=== PATIENT | male | born 1995 | race Caucasian/White ===

== ENCOUNTER 2018-12-10 16:11 | Emergency (ER) | payer MEDICAID, SELFPAY ==
[2018-12-10 16:15] VITALS: BP 127/69; PULSE 76; RESP 16; TEMP 36.7; O2SAT 99
--- NOTE | 2018-12-10 16:16 | W.ED.GENAD ---
Discharge Plan Disposition Patient Disposition: OTHER Discharge Details Chief Complaint: Nk/Back Pain Clinical Impression: Coccyx pain Primary Care Provider: [facility] ED Provider: Mariama Stevenson Medical Decision Making Patient is a 23 year old male presenting today with c/c of tailbone pain after fall yesterday. Reports he was hiking a waterfall when he slipped and fell landing directly on his coccyx. States that since then he has had pain, particularly when sitting. Appears comfortable when standing but is clearly in pain when asked to sit during exam. He denies sensory changes, no weakness in BLE, no change in bowel or bladder habits. Denies other injury at the time of the incident. Patient point tender over the coccyx. He has not taken any medication for pain, will give Tylenol and Ibuprofen and XR coccyx/sacrum. Once patient hasvoided, plan to obtain postvoid residual although no signs on exam or history to suggest cauda equina. Patient eloped prior to imaging or post void residual being assessed, he reported that he had a limited time to be here and would need a ride home. There was a delay in obtaining imaging secondary to surge in the department. Patient eloped prior to me reevaluating him, he was appropriate and is cognitively able to make this decision. HPI General Mode of arrival: ambulatory. Date/Time Provider Initiated Documentation: 12/10/18 16:16. Limitations to Documentation: no limitations. Information obtained by: patient and RN notes reviewed. History of Present Illness 23 year old M presents to the emergency department with the chief complaint of tailbone pain, described as moderate, with intensity rated at 7. Quality is described as aching, and is localized to the back. Patient reports no radiation. Patient started experiencing this day(s) (1) and it has been constant. Immobilization improves symptom(s), (in upright position) Rest worsens symptoms (sitting) . Patient notes no other symptoms.; denies chest pain, cough, fever/chills, headaches, nausea/vomiting, rash, shortness of breath, syncope and weakness. Patient did receive the following treatments prior to arrival, none Related Data Allergies Allergy/AdvReac Type Severity Reaction Status Date / Time cephalexin [Cephalexin] Allergy Intermediate RASH Unverified 12/10/18 16:20 honey Allergy Mild Hives Unverified 12/10/18 16:20 Review of Systems Constitutional Reports as per HPI, Denies chills, Denies fever(s), Denies headache(s) and Denies weakness ENT Denies headache(s) and Denies neck pain Cardiovascular Reports as per HPI Respiratory Reports as per HPI and Denies cough Musculoskeletal Reports as per HPI, Denies abnormal gait, Reports back pain, Denies muscle weakness, Denies neck pain, Denies numbness and Denies tingling Integumentary/Breasts Reports as per HPI, Denies rash and Denies wounds Neurologic Reports as per HPI, Denies abnormal gait, Denies headache(s), Denies numbness, Denies tingling, Denies paresthesias and Denies weakness [facility] Surgical History Arthroplasty of knee (04/16/12) Excision of dorsal wrist ganglion cyst, right (05/10/16) Social History Smoking/Tobacco Use Status: Current every day Tobacco Type: cigarettes Alcohol Intake: current Alcohol Intake frequency: a few times a month Drug use: Never Substance use type: does not use Do you feel safe at home: Yes Do you feel safe in your relationship?: Yes Exam Const General: cooperative, healthy appearing, comfortable, no acute distress, well developed and well groomed Nutritional Appearance: average body habitus and well nourished Orientation: alert and awake Resp Effort & Inspection: normal respiratory effort, able to speak in complete sentences and no respiratory distress Auscultation: clear to auscultation bilaterally Cardio Rate: regular rate Rhythm: regular rhythm Heart Sounds: S1 normal and S2 normal GI Inspection: normal to inspection Palpation: soft, no hepatosplenomegaly, no guarding and nontender Back/Spine/Pelvis Back: no CVA tenderness Cervical Spine: normal cervical lordosis and cervical ROM normal Thoracic/Lumbar Spine: thoracic and lumbar spine normal to inspection Pelvis: no pain with anterior-posterior compression and no pain with lateral compression Sacroiliac joints: bilaterally nontender Sacrum: no ecchymosis, no erythema, no swelling and tenderness midline Coccyx: tenderness on direct palpation Skin General skin exam: no rashes or lesions noted Lesions: no lesions Rashes: no rashes Trauma: no lacerations or abrasions Neuro General: alert and awake Cognition: normal cognition Speech: speech normal Gait: normal gait Motor: muscle tone normal throughout Sensory Exam: no sensory deficits noted (no saddle paresthesias) DTR's: Rt Patellar: 2+, Lt Patellar: 2+, Rt Ankle: 2+ and Lt Ankle: 2+ Plantar Reflexes: Downgoing: bilateral Extrem General: normal to inspection, full ROM, normal capillary refill, no joint enlargement, no clubbing, cyanosis or edema, no pedal edema, no calf tenderness and normal gait Psych Appearance: grossly normal and well kempt Mental Status: mental status grossly normal Speech and Movement: speech and movement normal
--- NOTE | 2018-12-10 16:31 | ED.GENADUL_ITS ---
Discharge Plan Disposition Patient Disposition: OTHER Discharge Details Chief Complaint: Nk/Back Pain Clinical Impression: Coccyx pain Primary Care Provider: [facility] ED Provider: Mariama Stevenson Medical Decision Making Patient is a 23 year old male presenting today with c/c of tailbone pain after fall yesterday. Reports he was hiking a waterfall when he slipped and fell landing directly on his coccyx. States that since then he has had pain, particularly when sitting. Appears comfortable when standing but is clearly in pain when asked to sit during exam. He denies sensory changes, no weakness in BLE, no change in bowel or bladder habits. Denies other injury at the time of the incident. Patient point tender over the coccyx. He has not taken any medication for pain, will give Tylenol and Ibuprofen and XR coccyx/sacrum. Once patient hasvoided, plan to obtain postvoid residual although no signs on exam or history to suggest cauda equina. Patient eloped prior to imaging or post void residual being assessed, he reported that he had a limited time to be here and would need a ride home. There was a delay in obtaining imaging secondary to surge in the department. Patient eloped prior to me reevaluating him, he was appropriate and is cognitively able to make this decision. HPI General Mode of arrival: ambulatory . Date/Time Provider Initiated Documentation: 12/10/18 16:16 . Limitations to Documentation: no limitations . Information obtained by: patient and RN notes reviewed . History of Present Illness 23 year old M presents to the emergency department with the chief complaint of tailbone pain, described as moderate, with intensity rated at 7. Quality is described as aching, and is localized to the back. Patient reports no radiation. Patient started experiencing this day(s) (1) and it has been constant. Immobilization improves symptom(s), (in upright position) Rest worsens symptoms (sitting) . Patient notes no other symptoms.; denies chest pain, cough, fever/chills, headaches, nausea/vomiting, rash, shortness of breath, syncope and weakness. Patient did receive the following treatments prior to arrival, none Related Data Allergies Allergy/AdvReac Type Severity Reaction Status Date / Time cephalexin [Cephalexin] Allergy Intermediate RASH Unverified 12/10/18 16:20 honey Allergy Mild Hives Unverified 12/10/18 16:20 Review of Systems Constitutional Reports as per HPI, Denies chills, Denies fever(s), Denies headache(s) and Denies weakness ENT Denies headache(s) and Denies neck pain Cardiovascular Reports as per HPI Respiratory Reports as per HPI and Denies cough Musculoskeletal Reports as per HPI, Denies abnormal gait, Reports back pain, Denies muscle weakness, Denies neck pain, Denies numbness and Denies tingling Integumentary/Breasts Reports as per HPI, Denies rash and Denies wounds Neurologic Reports as per HPI, Denies abnormal gait, Denies headache(s), Denies numbness, Denies tingling, Denies paresthesias and Denies weakness [facility] Surgical History Arthroplasty of knee (04/16/12) Excision of dorsal wrist ganglion cyst, right (05/10/16) Social History Smoking/Tobacco Use Status: Current every day Tobacco Type: cigarettes Alcohol Intake: current Alcohol Intake frequency: a few times a month Drug use: Never Substance use type: does not use Do you feel safe at home: Yes Do you feel safe in your relationship?: Yes Exam Const General: cooperative, healthy appearing, comfortable, no acute distress, well developed and well groomed Nutritional Appearance: average body habitus and well nourished Orientation: alert and awake Resp Effort & Inspection: normal respiratory effort, able to speak in complete sentences and no respiratory distress Auscultation: clear to auscultation bilaterally Cardio Rate: regular rate Rhythm: regular rhythm Heart Sounds: S1 normal and S2 normal GI Inspection: normal to inspection Palpation: soft, no hepatosplenomegaly, no guarding and nontender Back/Spine/Pelvis Back: no CVA tenderness Cervical Spine: normal cervical lordosis and cervical ROM normal Thoracic/Lumbar Spine: thoracic and lumbar spine normal to inspection Pelvis: no pain with anterior-posterior compression and no pain with lateral compression Sacroiliac joints: bilaterally nontender Sacrum: no ecchymosis, no erythema, no swelling and tenderness midline Coccyx: tenderness on direct palpation Skin General skin exam: no rashes or lesions noted Lesions: no lesions Rashes: no rashes Trauma: no lacerations or abrasions Neuro General: alert and awake Cognition: normal cognition Speech: speech normal Gait: normal gait Motor: muscle tone normal throughout Sensory Exam: no sensory deficits noted (no saddle paresthesias) DTR's: Rt Patellar: 2+, Lt Patellar: 2+, Rt Ankle: 2+ and Lt Ankle: 2+ Plantar Reflexes: Downgoing: bilateral Extrem General: normal to inspection, full ROM, normal capillary refill, no joint enlargement, no clubbing, cyanosis or edema, no pedal edema, no calf tenderness and normal gait Psych Appearance: grossly normal and well kempt Mental Status: mental status grossly normal Speech and Movement: speech and movement normal
[2018-12-10] MEDS: Acetaminophen 500 MG TAB 1000 MG PO (16:50)
[2018-12-10] MEDS: Ibuprofen 600 MG TAB PO (17:14)
[2018-12-10 17:16] VITALS: BP 127/69; PULSE 76; RESP 16; TEMP 36.7; O2SAT 99
--- NOTE | 2018-12-10 17:16 | NUR.NOTE ---
Nursing Note: Patient left prior to getting his xrays taken because his only chance to get a ride home was in 2 min prior to leaving.
--- NOTE | 2018-12-11 09:15 | PDOC.ERCMPRO ---
Care Management Progress Note 12/11-Vin was seen in the emergency department for back/neck pain, s/p fall while hiking. Patient left AMA due to transportation. This CM reached out to Vin, but the phone number listed in the chart states, restrictions, unable to put call through.
== END 2018-12-10 17:12 | disposition other institution (70) ==
PROVIDERS: Emergency Provider Physician Assistant; PCP Family Medicine
DX: M54.5 Low back pain (principal); W01.0XXA Fall on same level from slipping, tripping and stumbling without subsequent striking against object, initial encounter
CPT/HCPCS: 99282

== ENCOUNTER 2019-01-27 02:37 | Emergency (ER) | payer MEDICAID, SELFPAY ==
[2019-01-27 02:40] VITALS: BP 123/81; PULSE 55; RESP 16; TEMP 36.7; O2SAT 100
--- NOTE | 2019-01-27 02:45 | W.ED.GENAD ---
Discharge Plan Disposition Patient Disposition: HOME Condition: Stable Discharge Details Chief Complaint: Headache Clinical Impression: Headache Primary Care Provider: [facility] ED Provider: Josiah Crockett Home Meds and New Rx's Prescriptions: New ondansetron 4 mg tablet,disintegrating 4 mg PO QID PRN (Reason: nausea and vomiting) Qty: 30 RF: 0 Discharge Instructions Instructions: General Headache (ED) Additional Instructions: you can take 1000mg tylenol and 600mg ibuprofen every 6 hours for pain as needed follow up with your primary care provider within 1-2 weeks especially if symptoms continue if you have persistent vomit, high fevers or feel more ill return to the emergency department Medical Decision Making 23 yo male who denies chronic med problems but has hx of headaches/migraines in the past comes in with slowly worsening headache. Denies fevers, no recent travel and denies trauma. He states yesterday he was out in the sun all day and wasn't drinking much water and also had some n/v/d yesterday. He arrives walking with stable gait and normal vital signs. CN II-xII intact and no focal motor or sensation deficits. 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 Given pain has slowly been worsening and not worse of his life doubt sah. He has moist membranes and no tachycardia so doubt clinically significant dehydration. Will tx with toradol and zofran and reassess. pt feeling better and requesting d/c, still reassuring neuro exam without meningismus. Will d/c and advised f/u with pcp if symptoms continue and return precautins given Differential Diagnosis dehydration, tension headache, migraine HPI General Mode of arrival: ambulatory. Date/Time Provider Initiated Documentation: 01/27/19 02:37. Limitations to Documentation: no limitations. Information obtained by: patient. History of Present Illness 23 year old M presents to the emergency department with the chief complaint of headache, described as moderate, Quality is described as aching, and is localized to the head. Patient reports no radiation. Patient started experiencing this hour(s) (5) No relieving factors improve symptom(s), No exacerbating factors reported . Patient did receive the following treatments prior to arrival, Aspirin Related Data Home Medications Medication Instructions Recorded Confirmed ondansetron 4 mg PO QID PRN #30 tab 01/27/19 Previous Rx's Medication Instructions Recorded ondansetron 4 mg PO QID PRN #30 tab 01/27/19 Allergies Allergy/AdvReac Type Severity Reaction Status Date / Time cephalexin [Cephalexin] Allergy Intermediate RASH Unverified 01/27/19 02:43 honey Allergy Mild Hives Unverified 01/27/19 02:43 General Stated Complaint: Headache GABRIEL: 3 Review of Systems Review of Systems All systems reviewed & are unremarkable except as noted in HPI and below Constitutional Denies chills, Denies fever(s) and Denies weakness Cardiovascular Denies chest pain and Denies dyspnea Respiratory Denies cough and Denies dyspnea Gastrointestinal Denies abdominal pain Neurologic Denies weakness PFSH Social History Smoking/Tobacco Use Status: Current every day Tobacco Type: cigarettes Alcohol Intake: current Alcohol Intake frequency: a few times a month Drug use: Never Substance use type: does not use Do you feel safe at home: Yes Do you feel safe in your relationship?: Yes Exam Const General: no acute distress Orientation: alert HENMT Head: normal to inspection Ears: external ears normal General nose exam: external nose normal Mouth: moist mucous membranes Eyes General: appearance normal, both eyes and all related structures Neck Neck: normal visual inspection Resp Effort & Inspection: normal respiratory effort and able to speak in complete sentences Cardio Rate: regular rate Skin General skin exam: no rashes or lesions noted Neuro General: alert and oriented x3 Extrem General: normal to inspection Psych Mental Status: mental status grossly normal Course Vital Signs Temperature 36.7 C 01/27/19 02:40 Pulse 55 L 01/27/19 02:40 Respiratory Rate 16 01/27/19 02:40 Blood Pressure 123/81 01/27/19 02:40 Pulse Oximetry 100 01/27/19 02:40 Temperature 36.7 C 01/27/19 02:40 Temperature Source Skin 01/27/19 02:40 Pulse 55 L 01/27/19 02:40 Respiratory Rate 16 01/27/19 02:40 Respiratory Effort Non-Labored 01/27/19 02:43 Blood Pressure 123/81 01/27/19 02:40 Blood Pressure Position Sitting 01/27/19 02:40 Pulse Oximetry 100 01/27/19 02:40 Oxygen Delivery Method Room Air 01/27/19 02:40 Oxygen Flow Rate 0 01/27/19 02:40 Pain Level 8 01/27/19 02:40
[2019-01-27] MEDS: Ketorolac 30 MG/ML VIAL IM (02:46)
[2019-01-27] MEDS: Ondansetron O.D.T. 4 MG TABEF PO (02:46)
== END 2019-01-27 03:25 | disposition home or self-care (01) ==
PROVIDERS: Emergency Provider Emergency Medicine; PCP Family Medicine
DX: R51 Headache (principal); R11.2 Nausea with vomiting, unspecified
CPT/HCPCS: 96372; 99284; J1885

== ENCOUNTER 2019-12-15 13:20 | Emergency (ER) | payer MEDICAID, SELFPAY ==
[2019-12-15 13:23] VITALS: BP 116/74; PULSE 111; RESP 20; TEMP 36.9; O2SAT 100
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
--- NOTE | 2019-12-15 14:47 | NUR.NOTE ---
patient informed RN about wanting to go home. MD Hciks made aware. covid-19 sent Nursing Note:
[2019-12-15 15:34] VITALS: BP 106/66; PULSE 66; RESP 18; TEMP 36.3; O2SAT 96
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
[2019-12-16 13:04] LABS: COVID-19 RT-PCR UVMMC Result Negative (Negative)
== END 2019-12-15 15:42 | disposition home or self-care (01) ==
PROVIDERS: Emergency Provider Student in an Organized Health Care Education/Training Program; PCP Family Medicine
DX: F41.8 Other specified anxiety disorders (principal); R45.851 Suicidal ideations
CPT/HCPCS: 99283; U0003

== ENCOUNTER 2020-05-27 11:01 | Emergency (ER) | payer MEDICAID, SELFPAY ==
[2020-05-27 11:11] VITALS: BP 132/78; PULSE 103; RESP 16; TEMP 36.9; O2SAT 99
--- NOTE | 2020-05-27 11:17 | ED.GENADUL_ITS ---
Discharge Plan Disposition Patient Disposition: HOME Condition: Stable Discharge Details Clinical Impression: Spermatocele, Lymphangitis of groin Primary Care Provider: [facility] ED Provider: Renée Altamirano Home Meds and New Rx's Prescriptions: No Action No Known Home Meds RF: 0 Discharge Instructions Instructions: Lymphadenopathy (ED), Spermatocele (ED) Additional Instructions: Follow up with primary care provider in 3-5 days. Return to ED sooner if any worsening or concerns. Increase oral fluids. Please take Tylenol or Ibuprofen with food every 4-6 hours as needed for pain and swelling. Follow-up with urology regarding spermatocele and lymph node enlargement. At this time your urine culture is pending with any abnormal result we will call you usually takes about 2 to 3 days to return. Referrals: Wilber Corea MD [ [facility] STAFF PHYSICIAN] - [facility] [Primary Care Provider] - Medical Decision Making 24-year-old male presents to the ED with chief complaint of bumps to his right groin. He reports that these have been there for at least 1 to 2 years. Over the last 2 to 3 days he has noticed them increasing in size and increased sharp pains when they are increased in size. He denies any problems urinating or burning with urination. Denies any abdominal pain no nausea vomiting diarrhea no fever. He states he has never been seen for this before. He has a past medical history of asthma ADHD and PTSD. Urinalysis is negative no leukocytes no nitrites no protein, fluttering chlamydia also ordered and is pending at this time. CBC and CMP are both within normal limits. EXAM: US SCROTUM CLINICAL HISTORY: Right groin/testicle pain/enlarged lymph?. TECHNIQUE: Scrotal ultrasound performed using grayscale, color-flow and spectral Doppler analysis. COMPARISON: No exams were available for comparison FINDINGS: Right testicle: 4.0 x 2.2 x 3.0 cm Left testicle: 4.1 x 1.9 x 2.7 cm Echogenicity: Normal. Contour: Smooth. Mass: None seen. Microlithiasis: None. Hydrocele: None. Variocele: Millimeter minimal left varicocele with vessel measurement 3.5 millimeters with Valsalva. Hernia: No peristalsing bowel loop identified. Epididymi: 3 millimeter spermatocele head of the right epididymis. Left normal.. DOPPLER: Color: Symmetric and uniform, no hyperemia. Duplex: Bilateral testicular arterial waveforms visualized. Right groin was also scanned. Multiple lymph nodes are noted. The largest measures 2.6 x 0.7 x 1.3 cm. There is a 1.4 centimeter lymph node which appears hyperemic , consistent with a reactive lymph node. The fatty hilum is maintained. No fluid collection or suspicious masses are seen. IMPRESSION: Normal appearing bilateral testicles. Minimal left varicocele. Reactive appearing right groin lymph nodes. Discussed ultrasound results with patient who verbalized understanding. Plan is to have follow-up with urology placed on care management list for urology follow-up. Patient verbalized understanding. HPI General Mode of arrival: ambulatory . Date/Time Provider Initiated Documentation: 05/27/20 11:07 . Limitations to Documentation: no limitations . Information obtained by: patient . HPI Narrative: 24-year-old male presents to the ED with chief complaint of bumps to his right groin. He reports that these have been there for at least 1 to 2 years. Over the last 2 to 3 days he has noticed them increasing in size and increased sharp pains when they are increased in size. He denies any problems urinating or burning with urination. Denies any abdominal pain no nausea vomiting diarrhea no fever. He states he has never been seen for this before. He has a past medical history of asthma ADHD and PTSD. Related Data Home Medications Medication Instructions Recorded Confirmed Unknown [No Known Home Meds] 12/15/19 05/27/20 Allergies Allergy/AdvReac Type Severity Reaction Status Date / Time cephalexin [Cephalexin] Allergy Intermediate RASH Unverified 05/27/20 11:15 honey Allergy Mild Hives Unverified 05/27/20 11:15 General Stated Complaint: Abd Prob GABRIEL: 3 Review of Systems Narrative: Constitutional: Negative for weight loss, alert and oriented, well groomed, normal body habitus, appears comfortable. HEENT: Denies trauma, headaches, blurry vision, nasal discharge, sore throat, trouble swallowing. Chest: Denies chest pain, palpitations, irregular rhythm, hypertension. Respiratory: Denies Shortness of breath, cough, hemoptysis. GI: Denies abdominal pain, nausea, vomiting, diarrhea, constipation. : Denies dysuria, hematuria, flank pain, rectal bleeding. Neuro: Denies dizziness, blurry vision, weakness, syncope, headache or facial numbness. Hematologic: Denies easy bruising, intolerance to heat or cold, hair loss. [facility] Surgical History Arthroplasty of knee (04/16/12) RIGHT Excision of dorsal wrist ganglion cyst, right (05/10/16) Social History Smoking/Tobacco Use Status: Current every day Tobacco Type: cigarettes Alcohol Intake: current Alcohol Intake frequency: a few times a week Alcohol type: beer Drug use: Daily Substance use type: marijuana Do you feel safe at home: Yes Do you feel safe in your relationship?: Yes Exam Narrative Exam Narrative: Constitutional: Alert and oriented x3. Appears stated age. Normal body habitus. Head: Normocephalic, no trauma. Eyes: Pupils PERRLA, Red reflex noted, EOM's intact. Eyelids symmetrical without lesions, discharge, or swelling. ENT: Bilateral TM's WNL, External ear normal to inspection, no mastoid TTP, swelling, or erythema, Nasal turbinates WNL, no nasal discharge. Normal dentition, Posterior pharynx WNL, no exudate. Chest: RRR, Normal S1, S2, distal pulses intact. Resp: Lungs clear to auscultation bilaterally, no wheezes, rales, or rhonchi. : Palpable small mass noted to his right groin, measuring approx 2cm x 2cm. Tender with palpation, non movable. No scrotal swelling, redness. No penile shaft lesion, or meatus discharge noted. Mary RN at for [facility]. Musculoskeletal: Normal gait, 5/5 strength to all four extremities. Skin: No suspicious rashes or lesions. Capillary refill less than 2 sec. Neurologic: Cranial nerves II-XII intact. Alert and oriented x 3. DTR's intact. Hematologic/Lymphatic: No ecchymosis, no lymphadenopathy. Course Vital Signs Vital signs: Vital Signs Temperature 36.9 C 05/27/20 11:11 Pulse 103 H 05/27/20 11:11 Respiratory Rate 16 05/27/20 11:11 Blood Pressure 132/78 05/27/20 11:11 Pulse Oximetry 99 05/27/20 11:11 Temperature 36.9 C 05/27/20 11:11 Temperature Source Skin 05/27/20 11:11 Pulse 103 H 05/27/20 11:11 Respiratory Rate 16 05/27/20 11:11 Respiratory Effort Non-Labored 05/27/20 11:11 Blood Pressure 132/78 05/27/20 11:11 Blood Pressure Position Sitting 05/27/20 11:11 Pulse Oximetry 99 05/27/20 11:11 Oxygen Delivery Method Room Air 05/27/20 11:11 Oxygen Flow Rate 0 05/27/20 11:11 Pain Level 0 05/27/20 11:11
[2020-05-27 11:34] LABS: Bilirubin Negative (Negative); Blood Negative (Negative); Clarity Clear (Clear); Glucose Negative (Negative); Ketones Negative (Negative); Leukocyte Esterase Negative (Negative); Nitrite Negative (Negative); Specific Gravity 1.025 (1.005-1.025); Urobilinogen 0.2 EU/dL (Up TO 0.2)
[2020-05-27 11:38] LABS: Abs Immature Grans 0.02 10^3/uL (0.0-0.06); Absolute Basophil Count 0.03 10^3/uL (0.0-0.2); Absolute Eosinophil Count 0.17 10^3/uL (0.0-0.7); Absolute Monocyte Count 0.54 10^3/uL (0.1-0.8); Absolute Neutrophil Count 5.04 10^3/uL (1.2-6.7); Basophils % 0.4; HCT 43.8 % (40.0-50.0); Immature Grans % 0.2; MCH 30.7 pg (27.0-33.0); MCHC 34.2 % (32.0-36.0); MCV 89.8 fL (80-95); MPV 9.7 fL (8.0-11.0); Monocytes % 6.4; Nucleated RBC 0 %; Platelet Count 202 10^3/uL (130-400); RBC 4.88 10^6/uL (4.36-5.78); RDW 12.3 % (11.8-14.1); RDW-SD 40.1 fL
[2020-05-27 11:52] LABS: ALT 35 U/L (16-63); AST 18 U/L (15-37); Albumin 3.8 g/dL (3.4-5.0); Alkaline Phosphatase 82 U/L (46-116); Anion Gap 8.1 mmol/L (3-11); BUN 11 mg/dL (7-18); Bilirubin, Total 0.2 mg/dL (0.2-1.0); CO2 25.9 mmol/L (21.0-32.0); CREATININE 0.94 mg/dL (0.70-1.30); Calcium 9.3 mg/dL (8.5-10.1); Chloride 105 mmol/L (98-107); Glucose 105 mg/dL (74-106); Potassium 3.7 mmol/L (3.5-5.1); Sodium 139 mmol/L (136-145)
[2020-05-27 12:08] VITALS: BP 138/84; PULSE 96; RESP 18; O2SAT 99
--- NOTE | 2020-05-27 12:29 | NUR.NOTE ---
Nursing Note: Referral faxed to [facility] Urology for follow up. Anushka Fonseca
[2020-05-28 15:40] LABS: Chlamydia Result Negative (Negative); GC Result Negative (Negative)
== END 2020-05-27 12:45 | disposition home or self-care (01) ==
PROVIDERS: Emergency Provider Registered Nurse Emergency; PCP Family Medicine
DX: N43.40 Spermatocele of epididymis, unspecified (principal); L03.324 Acute lymphangitis of groin
CPT/HCPCS: 36415; 80053; 87491; 87591; 99284; 76870; 81003; 85025

== ENCOUNTER 2021-05-11 12:45 | Emergency (ER) | payer MEDICAID, SELFPAY ==
[2021-05-11 12:54] VITALS: BP 139/88; PULSE 92; RESP 18; TEMP 36.3; O2SAT 100
--- NOTE | 2021-05-11 13:09 | ED.GENADUL_ITS ---
Discharge Plan Disposition Patient Disposition: OTHER Condition: Stable Discharge Details Clinical Impression: Right wrist pain Primary Care Provider: [place] [facility] ED Provider: John Carrasco Home Meds and New Rx's Prescriptions: No Action No Known Home Meds RF: 0 Discharge Instructions Additional Instructions: Patient eloped from the waiting room before official x-ray read was completed or obtaining his universal wrist splint. Discharge Data Discharge Date/Time-TO BE ENTERED AT DEPARTURE: 05/11/21 13:49 Medical Decision Making Patient presents for right wrist pain, no obvious trauma but does do heavy lifting repetitive motion. Clinically concerned for potential tendinitis but I do believe obtaining x-ray is reasonable. No evidence of septic joint. Patient was brought from room 9 to diagnostic imaging and then after imaging was placed in the waiting from. I reviewed the x-ray as no obvious fracture, awaiting official radiology report I have ordered a universal splint It was brought to my attention that the patient eloped from the waiting room prior to the universe splint application or the official x-ray read X-ray reviewed by radiology, negative. Medical Records Medical records reviewed: Yes I reviewed the patient's medical records. Imaging Data Radiologic Study: Attestation: I personally reviewed and interpreted this imaging study as follows: Imaging: X-Ray Radiologist's impression: Exam(s) XR WRIST RT COMPLETE EXAM: XR WRIST RT COMPLETE CLINICAL HISTORY: pain, splitting wood. TECHNIQUE: 2D digital imaging was performed of the right wrist. Three views were obtained. PA, lateral and oblique views were obtained. COMPARISON: No exams were available for comparison FINDINGS: BONES: No acute fracture is present. No bony destructive lesion is seen. JOINTS: The carpal bones are normally aligned. SOFT TISSUE: Normal. IMPRESSION: Unremarkable radiographs of the right wrist. DATA REPOSITORY: RADIATION DOSE DELIVERED: [facility] General Mode of arrival: ambulatory . Date/Time Provider Initiated Documentation: 05/11/21 13:03 . Limitations to Documentation: no limitations . Information obtained by: patient . 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 He denies any obvious trauma but reports heavy lifting repetitive motion. Denies any other injury, joint pain, redness, fever, numbness, tingling, weakness. Has not taken any [id number] medications for his symptoms Related Data Home Medications Medication Instructions Recorded Confirmed Unknown [No Known Home Meds] 12/15/19 05/11/21 Allergies Allergy/AdvReac Type Severity Reaction Status Date / Time cephalexin [Cephalexin] Allergy Intermediate RASH Unverified 05/11/21 12:56 honey Allergy Mild Hives Unverified 05/11/21 12:56 General Stated Complaint: Orthopedic GABRIEL: 4 Review of Systems Constitutional Constitutional: Denies fever(s) and Denies weakness Musculoskeletal Musculoskeletal: Denies deformity, Reports arthralgias, Denies numbness, Reports stiffness and Denies tingling Integumentary/Breasts Skin/Breast: Denies erythema Neurologic Neurologic: Denies numbness, Denies tingling and Denies weakness [facility] Surgical History Arthroplasty of knee (04/16/12) RIGHT Excision of dorsal wrist ganglion cyst, right (05/10/16) Social History Smoking/Tobacco Use Status: Current every day Tobacco Type: cigarettes Smoking risk assessment performed?: Yes Alcohol Intake: current Alcohol Intake frequency: a few times a week Alcohol type: beer Drug use: Daily Substance use type: marijuana Do you feel safe at home: Yes Do you feel safe in your relationship?: Yes Exam Const General: cooperative, healthy appearing, comfortable and no acute distress Orientation: alert and awake [facility] Head: normal to inspection, normocephalic and atraumatic Eyes Conjunctivae: conjunctivae normal Neck Neck: normal visual inspection, trachea midline and supple Resp Effort & Inspection: normal respiratory effort and able to speak in complete sentences Cardio Rate: regular rate Rhythm: regular rhythm Skin General skin exam: no rashes or lesions noted Neuro General: patient alert, patient awake, moves all extremities and no focal motor deficits Cognition: normal cognition Speech: speech normal Gait: normal gait Motor: muscle tone normal throughout Sensory Exam: no sensory deficits noted Extrem General: normal to inspection, full ROM and capillary refill normal Elbow/forearm/wrist images: 1. Diffuse mild discomfort without swelling, ecchymosis, erythema, bony point tenderness. Skin is intact. Full range of motion. Neuro, vascular, tendon intact, normal radial pulse and capillary refill. No anatomical snuffbox point tenderness. Psych Appearance: grossly normal Mental Status: mental status grossly normal Course Vital Signs Vital signs: Vital Signs Temperature 36.3 C L 05/11/21 12:54 Pulse 92 H 05/11/21 12:54 Respiratory Rate 18 05/11/21 12:54 Blood Pressure 139/88 05/11/21 12:54 Pulse Oximetry 100 05/11/21 12:54 Temperature 36.3 C L 05/11/21 12:54 Temperature Source Tympanic 05/11/21 12:54 Pulse 92 H 05/11/21 12:54 Respiratory Rate 18 05/11/21 12:54 Respiratory Effort Non-Labored 05/11/21 12:56 Blood Pressure 139/88 05/11/21 12:54 Blood Pressure Position Sitting 05/11/21 12:54 Pulse Oximetry 100 05/11/21 12:54 Oxygen Delivery Method Room Air 05/11/21 12:54 Oxygen Flow Rate 0 05/11/21 12:54 Pain Level 3 05/11/21 12:54 PAWSS Have you Been Recently Intoxicated or Drunk Within the Last 30 days?: Yes Have you Ever Experienced Previous Episodes of Alcohol Withdrawal?: No Have you ever Experienced Withdrawal Seizures?: No Have you ever Experienced Delirium Tremens(DT)s?: No Have you ever undergone Alcohol Rehabilitation Treatment (i.e, inpt ot outpatient treatment programs)?: No Have you ever Experienced Blackouts?: No Have you ever Combined Alcohol with other Downers within the last 90 days?: No Have you ever Combined Alcohol with any other Substance of Abuse during the last 90 days?: No Positive Blood Alcohol level on Presentation? [PCS.BAL]: No Evidence of Increased Autonomic Activity (i.e. HR>120, tremor, sweating, agitation, nausea)?: No Result: 1
--- NOTE | 2021-05-11 13:24 | DI.RAD_ITS ---
Exam(s) XR WRIST RT COMPLETE EXAM: XR WRIST RT COMPLETE CLINICAL HISTORY: pain, splitting wood. TECHNIQUE: 2D digital imaging was performed of the right wrist. Three views were obtained. PA, lat eral and oblique views were obtained. COMPARISON: No exams were available for comparison FINDINGS: BONES: No acute fracture is present. No bony destructive lesion is seen. JOINTS: The carpal bones are normally aligned. SOFT TISSUE: Normal. IMPRESSION: Unremarkable radiographs of the right wrist. DATA REPOSITORY: RADIATION DOSE DELIVERED:
--- NOTE | 2021-05-11 13:48 | NUR.NOTE ---
Nursing Note: Patient stated to access that his ride was here and he was going to leave. I asked that they tell him to call in half hr to get results of his xray. Anushka Fonseca
== END 2021-05-11 13:49 | disposition other institution (70) ==
PROVIDERS: Emergency Provider Physician Assistant; PCP Family Medicine
DX: M25.531 Pain in right wrist (principal); Z53.29 Procedure and treatment not carried out because of patient's decision for other reasons
CPT/HCPCS: 99283; 73110; 99282

== ENCOUNTER 2021-10-21 05:50 | Observation (INO) | payer MEDICAID, SELFPAY ==
[2021-10-21] VITALS (50 sets, daily range): BP systolic 101–172; BP diastolic 49–102; PULSE 70–158; RESP 8–45; TEMP 36.6–37.2; O2SAT 88–100
--- NOTE | 2021-10-21 05:45 | RT.EKG_ITS ---
APPROVED REPORT Exam: Resting ECG Reason for Exam: syncope Patient Location: E HR:98 bpm ECG Measurements Heart Rate 98 AXIS FL 136 P 41 QRSd 89 QRS 18 QT 325 T 41 QTc 417 Conclusion Sinus rhythm...normal P axis, V-rate 60- 99
--- NOTE | 2021-10-21 06:08 | ED.GENADUL_ITS ---
Discharge Plan Disposition Patient Disposition: [facility] INPATIENT Condition: Stable Discharge Details Clinical Impression: Syncope, Pleuritic chest pain, Shortness of breath, Pneumonitis, Hypoxia Primary Care Provider: [place] ED Provider: Josiah Crockett Home Meds and New Rx's Prescriptions: No Action venlafaxine 75 mg capsule,extended release 24hr 75 mg PO DAILY Qty: 30 2RF propranolol 60 mg capsule,extended release 24 hr 60 mg PO DAILY Qty: 30 2RF meloxicam 15 mg tablet 15 mg PO DAILY Qty: 30 2RF Medical Decision Making <Josiah Crockett MD - Last Filed: 10/21/21 06:30> 26 yo male with hx of anxiety, substance abuse and recently been using heroin a nd cocaine (last for both 2 days ago per patient), comes in after having syncope. He states he had about 18 beers throughout the days yesterday. He went to bed feeling well and 3 hours or so after was walking to the bathroom and the next thing he remembers was his roommate trying to wake him. No reported seizure activity. He arrives complaining of shortness of breath and chest pain especially with deep breaths. He denies any abdominal pain, headache, fevers, chills. He appears anxious on exam. No murmurs appreciated on exam and normal lung sounds bilaterally. No leg swelling or calf tenderness. I suspect he could have had syncope from dehydration from the excessive alcohol use yesterday, but will also evaluate for nstemi, electrolyte abnormality and given he has pleuritic chest pain will also evaluate for possible PE with CTA. He is willing to also try ativan to help with some associated anxiety. Differential Diagnosis Differential Diagnosis: PE, nstemi, anemia, electrolyte abnormality, dehydration Medical Records Medical records reviewed: Yes I reviewed the patient's medical records. Lab Data Lab results reviewed: Yes I reviewed the patient's lab results. ECG Data Attestation: I personally reviewed and interpreted this ECG (s) as follows: Prior ECG tracings: not available for review Interpretation: sinus rhythm, rate of 98, no acute st t wave ischemic findings <Uli Gupta MD - Last Filed: 10/21/21 08:37> 26 yo male with hx of anxiety, substance abuse and recently been using heroin and cocaine (last for both 2 days ago per patient), comes in after having syncope. He states he had about 18 beers throughout the days yesterday. He went to bed feeling well and 3 hours or so after was walking to the bathroom and the next thing he remembers was his roommate trying to wake him. No reported seizure activity. He arrives complaining of shortness of breath and chest pain especially with deep breaths. He denies any abdominal pain, headache, fevers, chills. He appears anxious on exam. No murmurs appreciated on exam and normal lung sounds bilaterally. No leg swelling or calf tenderness. I suspect he could have had syncope from dehydration from the excessive alcohol use yesterday, but will also evaluate for nstemi, electrolyte abnormality and given he has pleuritic chest pain will also evaluate for possible PE with CTA. He is willing to also try ativan to help with some associated anxiety. DiSabatino 8:03 AM patient with persistent tachycardia and tachypnea. Evidence of groundglass opacities bilaterally on CT sparing periphery of the lungs, broad differential discussed with radiology. Patient does endorse insufflating cocaine 2 days ago consider insufflation pneumonitis versus Covid. Nebs and steroid has been ordered. Taken off of nasal cannula desaturates to 88% on room air at rest. Placed back on 2 L nasal cannula now 96% oxygen saturation. Will admit for close monitoring of respiratory status and continued therapy HPI <Josiah Crockett MD - Last Filed: 10/21/21 06:30> General Mode of arrival: ambulatory . Date/Time Provider Initiated Documentation: 10/21/21 05:51 . Limitations to Documentation: no limitations . Information obtained by: patient . History of Present Illness 26 year old M presents to the emergency department with the chief complaint of syncope, described as moderate, Patient started experiencing this hour(s) (1) and it has been constant. improves with No relieving factors improve symptom(s), No exacerbating factors reported . Patient notes chest pain; denies fever/chills. Patient did receive the following treatments prior to arrival, none Related Data Home Medications Medication Instructions Recorded Confirmed meloxicam 15 mg tablet 15 mg PO DAILY #30 tab 10/11/21 10/21/21 propranolol 60 mg capsule,24 60 mg PO DAILY #30 cap 10/11/21 10/21/21 hr,extended release venlafaxine 75 mg capsule,extended 75 mg PO DAILY #30 cap 10/11/21 10/21/21 release 24 hr Previous Rx's Medication Instructions Recorded meloxicam 15 mg tablet 15 mg PO DAILY #30 tab 10/11/21 propranolol 60 mg capsule,24 60 mg PO DAILY #30 cap 10/11/21 hr,extended release venlafaxine 75 mg capsule,extended 75 mg PO DAILY #30 cap 10/11/21 release 24 hr Allergies Allergy/AdvReac Type Severity Reaction Status Date / Time cephalexin [Cephalexin] Allergy Intermediate RASH Unverified 10/21/21 06:01 honey Allergy Mild Hives Unverified 10/21/21 06:01 General Stated Complaint: SOB GABRIEL: 3 <Uli Gupta MD - Last Filed: 10/21/21 08:37> HPI Narrative: 26 yo male with hx of anxiety, substance abuse and recently been using heroin and cocaine (last for both 2 days ago per patient), comes in after having syncope. He states he had about 18 beers throughout the days yesterday. He went to bed feeling well and 3 hours or so after was walking to the bathroom and the next thing he remembers was his roommate trying to wake him. No reported seizure activity. He arrives complaining of shortness of breath and chest pain especially with deep breaths. He denies any abdominal pain, headache, fevers, chills. He appears anxious on exam. No murmurs appreciated on exam and normal lung sounds bilaterally. No leg swelling or calf tenderness. Review of Systems <Josiah Crockett MD - Last Filed: 10/21/21 06:30> All systems reviewed & are unremarkable except as noted in HPI and below Constitutional Constitutional: Denies chills and Denies fever(s) ENT Ears, Nose, Mouth, and Throat: Denies change in voice Respiratory Respiratory: Denies cough Gastrointestinal Gastrointestinal: Denies abdominal pain Musculoskeletal Musculoskeletal: Denies joint swelling <Uli Gupta MD - Last Filed: 10/21/21 08:37> Narrative: Review of Systems Constitutional: Fatigue Eyes: negative ENT: negative Cardiovascular: Chest pain Respiratory: Shortness of breath Gastrointestinal: negative : negative Musculoskeletal: negative Skin: negative Neurologic: negative Psych: negative PFSH <Josiah Crockett MD - Last Filed: 10/21/21 06:30> All Active Problems Syncope (Chronic) Pleuritic chest pain (Acute) Shortness of breath (Acute) Pneumonitis (Acute) Hypoxia (Acute) Opioid abuse (Acute) Migraine headache (Chronic) Knee pain, right anterior (Acute) Right wrist pain (Acute) Anxiety disorder (Acute) 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 History of arthroscopy of knee (Acute) History of surgical removal of ganglion cyst (Acute 05/10/16) Surgical History Arthroplasty of knee (04/16/12) RIGHT Excision of dorsal wrist ganglion cyst, right (05/10/16) Social History Smoking/Tobacco Use Status: Current every day Tobacco Type: cigarettes Smoking risk assessment performed?: Yes Alcohol Intake: current Alcohol Intake frequency: a few times a week Alcohol type: beer Drug use: Daily Substance use type: marijuana, crack/cocaine and heroin Do you feel safe at home: Yes Do you feel safe in your relationship?: Yes Exam <Josiah Crockett MD - Last Filed: 10/21/21 06:30> Const General: anxious Orientation: alert HENMT Head: normal to inspection Ears: external ears normal General nose exam: external nose normal Mouth: moist mucous membranes Eyes General: appearance normal, both eyes and all related structures Neck Neck: normal visual inspection Resp Effort & Inspection: normal respiratory effort and able to speak in complete sentences Cardio Rate: regular rate GI Palpation: soft and nontender Skin General skin exam: no rashes or lesions noted Neuro General: patient alert and patient oriented x3 Extrem General: normal to inspection Psych Mental Status: mental status grossly normal <Uli Gupta MD - Last Filed: 10/21/21 08:37> Narrative Exam Narrative: Physical Examination General: Resting comfortably, somewhat tired appearing however arousable to voice HEENT: normocephalic, atraumatic; PERRL, EOM intact, conjunctiva normal; no nasal discharge; moist mucous membranes, oral and pharyngeal mucosa normal, tolerating secretions Neck: supple, trachea midline; full ROM Chest: normal to inspection Respiratory: Shallow respirations with tachypnea; speaking in full sentences, clear to auscultation, no wheezing, rales or rhonchi Cardiac: Tachycardia, regular rhythm, S1S2 intact, no murmurs rubs or gallops GI: abdomen soft, non-tender, non-distended; no palpable mass or hepatosplenomegaly Skin: no lesions, rashes or trauma appreciated Neuro: AAOx3, normal speech, moving all extremities Psych: Appropriate mood and affect Course <Josiah Crockett MD - Last Filed: 10/21/21 06:30> Vital Signs Vital signs: Vital Signs Temperature 37.2 C 10/21/21 05:52 Pulse 107 H 10/21/21 05:52 Respiratory Rate 28 H 10/21/21 05:52 Blood Pressure 140/79 10/21/21 05:52 Pulse Oximetry 100 10/21/21 05:52 Temperature 37.2 C 10/21/21 05:52 Temperature Source Skin 10/21/21 05:52 Pulse 109 H 10/21/21 05:54 Pulse 96 H 10/21/21 06:00 Respiratory Rate 26 H 10/21/21 06:00 Respiratory Effort 10/21/21 05:56 Respiratory Depth Retractive 10/21/21 05:56 Respiratory Pattern Tachypnea 10/21/21 05:56 Blood Pressure 140/79 10/21/21 05:54 Blood Pressure Mean 94 10/21/21 05:54 Blood Pressure Position Sitting 10/21/21 05:52 Pulse Oximetry 98 10/21/21 06:00 Oxygen Delivery Method Room Air 10/21/21 05:52 Oxygen Flow Rate 0 10/21/21 05:52 Pain Level 6 10/21/21 05:52 Sign Out <Josiah Crockett MD - Last Filed: 10/21/21 06:30> Sign Out Data: Sign Out Comment: cocaine and heroin use 2 days ago, yesterday drank 18 beers throughout the day. Woke up this morning and had syncope walking to the bathroom. Arrived stable but anxious. pending CT results, delta troponins, reassessment. If stable and reassuring workup can likely be discharged with pcp follow up Last updated by Josiah Crockett MD at 10/21/21 07:04 PAWSS <Josiah Crockett MD - Last Filed: 10/21/21 06:30> Have you Been Recently Intoxicated or Drunk Within the Last 30 days?: Yes Have you Ever Experienced Previous Episodes of Alcohol Withdrawal?: No Have you ever Experienced Withdrawal Seizures?: No Have you ever Experienced Delirium Tremens(DT)s?: No Have you ever undergone Alcohol Rehabilitation Treatment (i.e, inpt ot outpatient treatment programs)?: Yes Have you ever Experienced Blackouts?: Yes Have you ever Combined Alcohol with other Downers within the last 90 days?: Yes Have you ever Combined Alcohol with any other Substance of Abuse during the last 90 days?: Yes Positive Blood Alcohol level on Presentation? [PCS.BAL]: Unable to Obtain Evidence of Increased Autonomic Activity (i.e. HR>120, tremor, sweating, agitation, nausea)?: Yes Result: 6 <Uli Gupta MD - Last Filed: 10/21/21 08:37> Result: 6
--- NOTE | 2021-10-21 06:15 | DI.CT_ITS ---
Exam(s) CT CHEST PE CTA EXAM: CT CHEST PE CTA CLINICAL HISTORY: syncope, pleuritic chest pain. TECHNIQUE: Imaging Protocol: Axial CT angiography was performed with multi-slice acquisition and mu lti-planar and/or 3D reconstructions. CONTRAST MATERIAL: Intravenous: Omnipaque 350 Contrast volume:structured data in ml COMPARISON: No exams were available for comparison FINDINGS: CT angiography of the chest was performed with intravenous infusion of 100 cc of Omnipaque 350. There are diffuse bilateral pulmonary ground-glass opacities sparing the peripheral lung. This is a nonspecific pattern which can be seen with a wide variety of inflammatory or infectious processes as well as in CHF. Please correlate regarding vaping history, as this may be related to inhalational di sease, also the findings can be seen in COVID pneumonia.. No pleural effusion. Tracheobronchial tree appears intact. No evidence of pulmonary embolic disease. Thoracic aorta is of normal diameter, no thoracic aortic an eurysm or dissection, major branch vessels appear intact. No mediastinal or hilar adenopathy. Images obtained through the upper abdomen show unremarkable appearance of the visualized portions of the liver, spleen, pancreas, adrenals, and kidneys. IMPRESSION: Bilateral ground-glass opacities, sparing the peripheral lung, nonspecific, please see above differen tial diagnosis period. No evidence of pulmonary embolic disease. RADIATION DOSE DELIVERED: 504.33mGy.cm Total DLP 504.33mGy.cm Total DLP !Error CTDIvol DATA REPOSITORY: All CT scans at this facility are submitted to the National Radiology Data Registry (NRDR) Dose Index Registry (DIR) with the [employer] (A[employer]). RADIATION OPTIMIZATION: All CT scans at this facility use at least one of these dose optimization te chniques: automated exposure control; mA and/or kV adjustment per patient size (includes targeted exa ms where dose is matched to clinical indication); or iterative reconstruction.
[2021-10-21 06:21] LABS: Abs Immature Grans 0.05 10^3/uL (0.0-0.06); Absolute Lymphocyte Count 2.19 10^3/uL (1.2-3.4); Absolute Monocyte Count 0.58 10^3/uL (0.1-0.8); BE (Venous) 3 mmol/L (-2-3); Basophils % 0.3; Eosinophils % 0.8; HCO3 (Venous) 26 mmol/L (23-28); HCT 40.7 % (40.0-50.0); HGB 14.1 g/dL (13.5-17.5); Immature Grans % 0.3; Lymphocytes % 15.2; MCHC 34.6 % (32.0-36.0); MCV 83.7 fL (80-95); MPV 9.5 fL (8.0-11.0); Neutrophils % 79.4; Nucleated RBC 0 %; O2 Sat (Venous) 86 %; Platelet Count 218 10^3/uL (130-400); RBC 4.86 10^6/uL (4.36-5.78); RDW 13.1 % (11.8-14.1); RDW-SD 39.5 fL; TCO2 (Venous) 22 mmol/L (24-29); WBC 14.43 10^3/uL (4.4-10.8); pCO2 (Venous) 33 mmHg (41-51); pH (Venous) 7.51 (7.31-7.41); pO2 (Venous) 42 mmHg
[2021-10-21] MEDS: Normal Saline 1,000 ML 1000 ML IV (06:22)
[2021-10-21] MEDS: LORazepam 2 MG/ML VIAL 1 MG IVP (06:22)
[2021-10-21 06:25] LABS: Source Nasal/Nares
[2021-10-21 06:29] LABS: Absolute Basophil Count 0.04 10^3/uL (0.0-0.2); Absolute Eosinophil Count 0.12 10^3/uL (0.0-0.7); Absolute Neutrophil Count 11.46 10^3/uL (1.2-6.7)
[2021-10-21 06:57] LABS: ALT 38 U/L (16-63); AST 21 U/L (15-37); Albumin 4.1 g/dL (3.4-5.0); Alkaline Phosphatase 87 U/L (46-116); Anion Gap 12.7 mmol/L (3-11); BUN 13 mg/dL (7-18); Bilirubin, Total 0.8 mg/dL (0.2-1.0); CO2 25.3 mmol/L (21.0-32.0); CREATININE 1.3 mg/dL (0.70-1.30); Calcium 9.2 mg/dL (8.5-10.1); Chloride 101 mmol/L (98-107); Glucose 113 mg/dL (74-106); Lipase 30 U/L (73-393); Magnesium 1.6 mg/dL (1.8-2.4); NT-proBNP 25 pg/mL (<300); Potassium 3.5 mmol/L (3.5-5.1); Sodium 139 mmol/L (136-145); Total Protein 7.3 g/dL (6.4-8.2); Troponin I < 50 ng/L (<or=60)
[2021-10-21 06:58] LABS: D-Dimer 755 ng/mlFEU (<500)
[2021-10-21 07:01] LABS: COVID-19 PCR Negative (Negative)
[2021-10-21] MEDS: Omnipaque 350 MG/ML 100 ML BTL IJ (07:01)
[2021-10-21 07:05] LABS: ETHANOL BLOOD < 3.0 mg/dL (<10)
[2021-10-21 07:27] LABS: Bilirubin Negative (Negative); Blood Negative (Negative); Clarity Clear (Clear); Glucose Negative (Negative); Ketones Negative (Negative); Leukocyte Esterase Negative (Negative); Nitrite Negative (Negative)
[2021-10-21 07:48] LABS: *AMPHETAMINES SCREEN URINE Negative (Negative); *BARBITURATES SCREEN URINE Negative (Negative); *BENZODIAZEPINES SCREEN URINE Positive (Negative); Cannabinoids THC Negative (Negative); Cocaine Screen,Urine Positive (Negative); METHADONE URINE SCREEN Negative (Negative); OPIATES URINE SCREEN Negative (Negative)
[2021-10-21 07:52] LABS: Tricyclic Antidepressants Negative (Negative)
[2021-10-21] MEDS: Normal Saline 500 ML 1000 ML IV (08:00)
[2021-10-21] MEDS: Levalbuterol 1.25 MG/3 ML UPD VIAL UPD (08:09)
[2021-10-21] MEDS: Dexamethasone 10 MG/ML VIAL IVP (08:09)
--- NOTE | 2021-10-21 09:48 | W.PM.HP.N ---
Date of service: 10/21/21 Time of Service: 09:48 Assessment and Plan Assessment and plan (1) Pneumonitis: Status: Acute Assessment and plan: Supplemental oxygen, as needed Xopenex updrafts, oral prednisone and oral antibiotics. Patient has been strongly counseled by Dr. Lopez and myself that he needs to refrain from vaping particularly because the flavored cartridges often have formaldehyde. CT scan of his chest does not show severe infiltrates. Hopefully he will recover quickly. (2) Pleuritic chest pain: Status: Acute (3) Opioid abuse: Status: Acute (4) Migraine headache: Status: Chronic Assessment and plan: Resume his propranolol and meloxicam. (5) Alcohol abuse: Status: Chronic Assessment and plan: Begin thiamine and folic acid and multivitamin. Monitor with CIWA scale. Provide benzodiazepines as needed. History of Present Illness History of Present Illness Chief Complaint: short of breath Narrative: 26-year-old male smoker half pack cigarettes per day also has a history of heroin abuse regularly uses heroin daily and also abuses cocaine. He drinks alcohol on a regular basis and 18 pack every 2 to 3 days. Yesterday he was drinking heavily with a friend beginning around 8 AM and drank until 2 AM this morning. He had passed out and when he came to this morning he was very confused his friend was concerned because he was not breathing right. Patient was complaining of shortness of breath and pleuritic chest pain and a cough productive of purulent sputum. No associated fevers or rigors. No hemoptysis. Patient admits he has been recently vaping from his [employer] vaporizer. He has been using flavored vaping cartridges. Evaluation in the emergency department included a CT scan of his chest That demonstrated bilateral groundglass opacities with sparing of the peripheral lung. Nasal swab for PCR for SARS-CoV-2 was negative. He is unvaccinated. 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) Surgical History (Updated 10/21/21 @ 13:01 by John Snyder) Arthroplasty of knee (04/16/12) RIGHT Excision of dorsal wrist ganglion cyst, right (05/10/16) History of arthroscopy of knee History of surgical removal of ganglion cyst (05/10/16) Social History Smoking/Tobacco Use Status: Current every day Tobacco Type: cigarettes Smoking risk assessment performed?: Yes Alcohol Intake: current Alcohol Intake frequency: a few times a week Alcohol type: beer Drug use: Daily Substance use type: marijuana, crack/cocaine and heroin Do you feel safe at home: Yes Do you feel safe in your relationship?: Yes Meds Allergies and Home Medications Allergies Allergy/AdvReac Type Severity Reaction Status Date / Time cephalexin [Cephalexin] Allergy Intermediate RASH Unverified 10/21/21 06:01 honey Allergy Mild Hives Unverified 10/21/21 06:01 Home Medications Medication Instructions Recorded Confirmed Type meloxicam 15 mg tablet 15 mg PO DAILY #30 tab 10/11/21 10/21/21 Rx propranolol 60 mg capsule,24 60 mg PO DAILY #30 cap 10/11/21 10/21/21 Rx hr,extended release venlafaxine 75 mg capsule,extended 75 mg PO DAILY #30 cap 10/11/21 10/21/21 Rx release 24 hr Exam Narrative Exam Narrative: Young obese male who is able to talk in complete sentences while at rest however with just getting up to the bathroom became very short of breath and became very tachycardic with heart rates in the 150s. HEENT is unremarkable. TMs are intact no erythema or bulging nares is moist no epistaxis he has some yellow crusted mucus in the right nares. Oropharynx noninjected teeth are in fair repair. Neck is supple no JVD normal carotid pulses no cervical adenopathy Chest is barrel chested with diffuse end expiratory wheezing no rhonchi or rales Heart is regular but tachycardic without murmur rub or gallop Abdomen is obese soft nontender Lower extremities without peripheral edema Neuro exam grossly intact normal range of motion and strength in both upper extremities and lower extremities. No facial asymmetry no dysarthric speech full extraocular motion intact normal movement of his palate tongue and face. Results Imaging CT scan - chest: report reviewed and image reviewed EKG: image reviewed Labs Result diagrams: 10/21/21 06:15 10/21/21 06:15 Labs: Laboratory Results - last 24 hr 10/21/21 10/21/21 10/21/21 06:15 06:15 06:15 WBC 14.43 H RBC 4.86 Hgb 14.1 Hct 40.7 MCV 83.7 MCH 29.0 MCHC 34.6 RDW 13.1 Plt Count 218 MPV 9.5 Immature Gran % 0.3 Neutrophils % 79.4 Lymphocytes % 15.2 Monocytes % 4.0 Eosinophils % 0.8 Basophils % 0.3 Nucleated RBC % 0 Absolute Neutrophils 11.46 H Absolute Lymphocytes 2.19 Absolute Monocytes 0.58 Absolute Eosinophils 0.12 Absolute Basophils 0.04 D-Dimer VBG pH 7.51 H VBG pCO2 33 L VBG pO2 42 VBG HCO3 26 VBG Total CO2 22 L VBG O2 Saturation 86 VBG Base Excess 3 Sodium 139 Potassium 3.5 Chloride 101 Carbon Dioxide 25.3 Anion Gap 12.7 H BUN 13 Creatinine 1.3 Estimated GFR/1.73 m2 >= 60.00 Glucose 113 H Calcium 9.2 Magnesium 1.6 L Total Bilirubin 0.8 AST 21 ALT 38 Alkaline Phosphatase 87 Troponin I < 50 NT-Pro-B Natriuret Pep 25 Total Protein 7.3 Albumin 4.1 Lipase 30 Urine Color Urine Clarity Urine pH Ur Specific [place] Urine Protein Urine Ketones Urine Blood Urine Nitrite Urine Bilirubin Urine Urobilinogen Ur Leukocyte Esterase Urine Glucose Urine Opiates Screen Urine Methadone Screen Ur Barbiturates Screen Ur Tricyclics Screen Ur Amphetamines Screen U Benzodiazepines Scrn Urine Cocaine Screen Ur THC Screen Ethyl Alcohol < 3.0 COVID-19 Source SARS-CoV-2 (PCR) 10/21/21 10/21/21 10/21/21 06:15 06:20 07:20 WBC RBC Hgb Hct MCV MCH MCHC RDW Plt Count MPV Immature Gran % Neutrophils % Lymphocytes % Monocytes % Eosinophils % Basophils % Nucleated RBC % Absolute Neutrophils Absolute Lymphocytes Absolute Monocytes Absolute Eosinophils Absolute Basophils D-Dimer 755 H VBG pH VBG pCO2 VBG pO2 VBG HCO3 VBG Total CO2 VBG O2 Saturation VBG Base Excess Sodium Potassium Chloride Carbon Dioxide Anion Gap BUN Creatinine Estimated GFR/1.73 m2 Glucose Calcium Magnesium Total Bilirubin AST ALT Alkaline Phosphatase Troponin I NT-Pro-B Natriuret Pep Total Protein Albumin Lipase Urine Color Urine Clarity Urine pH Ur Specific [place] Urine Protein Urine Ketones Urine Blood Urine Nitrite Urine Bilirubin Urine Urobilinogen Ur Leukocyte Esterase Urine Glucose Urine Opiates Screen Negative Urine Methadone Screen Negative Ur Barbiturates Screen Negative Ur Tricyclics Screen Negative Ur Amphetamines Screen Negative U Benzodiazepines Scrn Positive A Urine Cocaine Screen Positive A Ur THC Screen Negative Ethyl Alcohol COVID-19 Source Nasal/Nares SARS-CoV-2 (PCR) Negative 10/21/21 07:20 WBC RBC Hgb Hct MCV MCH MCHC RDW Plt Count MPV Immature Gran % Neutrophils % Lymphocytes % Monocytes % Eosinophils % Basophils % Nucleated RBC % Absolute Neutrophils Absolute Lymphocytes Absolute Monocytes Absolute Eosinophils Absolute Basophils D-Dimer VBG pH VBG pCO2 VBG pO2 VBG HCO3 VBG Total CO2 VBG O2 Saturation VBG Base Excess Sodium Potassium Chloride Carbon Dioxide Anion Gap BUN Creatinine Estimated GFR/1.73 m2 Glucose Calcium Magnesium Total Bilirubin AST ALT Alkaline Phosphatase Troponin I NT-Pro-B Natriuret Pep Total Protein Albumin Lipase Urine Color Yellow Urine Clarity Clear Urine pH 6.0 Ur Specific [place] 1.010 Urine Protein Negative Urine Ketones Negative Urine Blood Negative Urine Nitrite Negative Urine Bilirubin Negative Urine Urobilinogen 1.0 H Ur Leukocyte Esterase Negative Urine Glucose Negative Urine Opiates Screen Urine Methadone Screen Ur Barbiturates Screen Ur Tricyclics Screen Ur Amphetamines Screen U Benzodiazepines Scrn Urine Cocaine Screen Ur THC Screen Ethyl Alcohol COVID-19 Source SARS-CoV-2 (PCR) Last Vital Signs Temp 37.2 C 10/21/21 05:52 Pulse 90 10/21/21 09:00 Resp 30 H 10/21/21 09:10 BP 101/58 L 10/21/21 09:00 Pulse Ox 95 10/21/21 09:10 PAWSS Have you Been Recently Intoxicated or Drunk Within the Last 30 days?: Yes Have you Ever Experienced Previous Episodes of Alcohol Withdrawal?: No Have you ever Experienced Withdrawal Seizures?: No Have you ever Experienced Delirium Tremens(DT)s?: No Have you ever undergone Alcohol Rehabilitation Treatment (i.e, inpt ot outpatient treatment programs)?: Yes Have you ever Experienced Blackouts?: Yes Have you ever Combined Alcohol with other Downers within the last 90 days?: Yes Have you ever Combined Alcohol with any other Substance of Abuse during the last 90 days?: Yes Positive Blood Alcohol level on Presentation? [PCS.BAL]: Unable to Obtain Evidence of Increased Autonomic Activity (i.e. HR>120, tremor, sweating, agitation, nausea)?: Yes Result: 6
[2021-10-21] MEDS: Albuterol/Ipratropium 3 ML UPD VIAL UPD (10:04)
[2021-10-21] MEDS: Enoxaparin 40 MG/0.4 ML SYR SC (10:26)
--- NOTE | 2021-10-21 12:34 | W.PULMCON ---
General Date Of Service Date of service: 10/21/21 Time of Service: 12:35 Reason for Consult: Pneumonitis Assessment and Plan Assessment and plan (1) E-cigarette or vaping product use associated lung injury (EVALI): Status: Acute (2) Hypoxia: Status: Acute (3) Smoker: Status: Acute Assessment and plan: This is a 26 yo man admitted for a pneumonitis. The differential for this would include drug induced pneumonitis (recent cocaine use) or EVALI (E-cigarette or vaping product use associate lung injury). Typically supportive care and exposure avoidance is the treatment for both of these diagnoses. Ude of steroids has not been shown to provide any outcome benefits, however given the improvements in patient symptoms with steroids, I do still recommend a PO steroid taper. His pneumonitis is mild and will likely not require a prolonged taper. We will start with approximately 0.5mg/kg as a starting dose and perform a quick taper from there. Additionally, I tend to recommend covering for CAP in these cases. EVALI - avoid e-cigs and vape products - avoid any further inhalational exposures - recommend prednisone 60mg for 5 days, follow by the following taper: 50mg for 3 days, 40mg for 3 days, 20 mg for 3 days, 10mg for 3 days, 5mg for 3 days - no PJP ppx needed due to short taper duration - recommend treating for CAP - azithromycin monotherapy is likely to be sufficient on discharge - inhaler and nebulizers unlikely to provide much benefit - can give Xopenex inhaler prn Hypoxic respiratory failure - resolved, did require 3LPM earlier today Smoker - recommend cessation History of Present Illness Narrative: This is a 26 yo man who is admitted to med/surg for a pneumonitis in the setting of cocaine and vape inhalation exposure. He tells me that a few days ago he was injecting heroin and cocaine and did inhaler a single line of cocaine. His breathing was fine after this. Since that day he had run out of cigarettes and so he used his girlfriends vape pen that had strawberry flavored nicotine in it. After this he began feeling short of breath with pleuritic chest pains. He had a CTPE completed in the ED that found subtle groundglass opacities diffusely with some peripheral sparring. Given that this is an expiratory film the groundglass changes are likely augmented as compared to if he has a non contrasted chest CT. Today he tells me he wants to go home for various social and personal reasons. He is saturating well. He does not have hemoptysis but continues to have pleuritic chest pain. 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 Medical History (Updated 10/21/21 @ 13:34 by Janell Bermudez MD) Attention deficit hyperactivity disorder, 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) Surgical History (Updated 10/21/21 @ 13:01 by John Snyder) Arthroplasty of knee (04/16/12) RIGHT Excision of dorsal wrist ganglion cyst, right (05/10/16) History of arthroscopy of knee History of surgical removal of ganglion cyst (05/10/16) Social History Smoking/Tobacco Use Status: Current every day Tobacco Type: cigarettes Smoking risk assessment performed?: Yes Alcohol Intake: current Alcohol Intake frequency: a few times a week Alcohol type: beer Drug use: Daily Substance use type: marijuana, crack/cocaine and heroin Do you feel safe at home: Yes Do you feel safe in your relationship?: Yes Visit Medication and Allergies Active Medications Generic Name Dose Route Start Last Admin Trade Name Freq PRN Reason Stop Dose Admin Acetaminophen 0 mg 10/21/21 08:36 Acetaminophen 325 Mg Tab PO Q4H PRN PRN Al Hydrox/Mg Hydrox/Simethicone 30 ml 10/21/21 08:36 Mylanta Suspension 30 Ml Cup PO Q2H PRN PRN Albuterol Sulfate 2.5 mg 10/21/21 08:30 Albuterol 2.5 Mg/3 Ml Inh Soln Vial UPD Q2H PRN PRN Albuterol/Ipratropium 3 ml 10/21/21 09:00 10/21/21 10:04 Albuterol/Ipratropium 3 Ml Upd Vial UPD 3 ml QID TEE Administration Docusate Sodium 100 mg 10/21/21 08:36 Docusate Sodium 100 Mg Cap PO TID PRN PRN Enoxaparin Sodium 40 mg 10/21/21 10:00 10/21/21 10:26 Enoxaparin 40 Mg/0.4 Ml Syr SC 40 mg Q24H TEE Administration IV Miscellaneous Supplies 1 each 10/21/21 06:00 Iv Access IV DIRECTED [facility] Iohexol 100 ml 10/21/21 07:15 10/21/21 07:01 Omnipaque 350 Mg/Ml 100 Ml Btl IJ 11/20/21 23:59 100 ml DIRECTED [facility] Administration Magnesium Hydroxide 30 ml 10/21/21 08:36 Milk Of Magnesia 30 Ml Cup PO DAILY PRN PRN Methylprednisolone Sodium Succinate 60 mg 10/21/21 14:00 Methylprednisolone Succ 125 Mg Vial IVP 10/22/21 06:01 Q8H [facility] Nicotine 30 cartridge 10/21/21 11:41 10/21/21 11:55 Nicotine 10 Mg/Cartridge 30 Cart/Pkg IH 1 cartridge Q2H PRN PRN Administration Polyethylene Glycol 17 gm 10/21/21 08:36 Polyethylene Glycol 3350 17 Gm Packet PO DAILY PRN PRN Constipation Propranolol HCl 60 mg 10/21/21 11:50 Propranolol 60 Mg Capcr PO DAILY [facility] Sodium Chloride 0 ml 10/21/21 05:57 Normal Saline Flush 10 Ml Syr IVP PRN PRN Sodium Chloride 50 ml 10/21/21 07:15 10/21/21 07:02 Normal Saline 250 Ml Bag IJ 250 ml DIRECTED [facility] Administration Venlafaxine HCl 75 mg 10/21/21 11:50 Venlafaxine 75 Mg Capcr PO DAILY [facility] Allergies cephalexin [Cephalexin] Allergy (Intermediate, Unverified 10/21/21 06:01) RASH honey Allergy (Mild, Unverified 10/21/21 06:01) Hives Exam Narrative Exam Narrative: Gen: NAD, normal respiratory effort, obese HENT: PERRL, nasal turbinates normal without erythema or inflammation, moist oral mucosa, Mallampati 2, No LAD or JVD Chest: No respiratory distress, normal appearance of chest, clear to auscultation bilaterally, no crackles or wheezes, normal inspiratory effort Heart: regular rate and rhythym, no murmurs, rubs or gallops Abdomen: Non-distended, soft, non tender Extremities: No clubbing, edema, cyanosis, rashes Neuro: AAOx3 , non focal Psych: cooperative, appropriate mental affect Results Last Vital Signs Temp 36.8 C 10/21/21 11:27 Pulse 107 H 10/21/21 11:38 Resp 20 10/21/21 11:27 BP 132/89 10/21/21 11:38 Pulse Ox 100 10/21/21 11:27 Labs Result diagrams: 10/21/21 06:15 10/21/21 06:15 Labs: Laboratory Results - last 24 hr 10/21/21 10/21/21 10/21/21 06:15 06:15 06:15 WBC 14.43 H RBC 4.86 Hgb 14.1 Hct 40.7 MCV 83.7 MCH 29.0 MCHC 34.6 RDW 13.1 Plt Count 218 MPV 9.5 Immature Gran % 0.3 Neutrophils % 79.4 Lymphocytes % 15.2 Monocytes % 4.0 Eosinophils % 0.8 Basophils % 0.3 Nucleated RBC % 0 Absolute Neutrophils 11.46 H Absolute Lymphocytes 2.19 Absolute Monocytes 0.58 Absolute Eosinophils 0.12 Absolute Basophils 0.04 D-Dimer VBG pH 7.51 H VBG pCO2 33 L VBG pO2 42 VBG HCO3 26 VBG Total CO2 22 L VBG O2 Saturation 86 VBG Base Excess 3 Sodium 139 Potassium 3.5 Chloride 101 Carbon Dioxide 25.3 Anion Gap 12.7 H BUN 13 Creatinine 1.3 Estimated GFR/1.73 m2 >= 60.00 Glucose 113 H Calcium 9.2 Magnesium 1.6 L Total Bilirubin 0.8 AST 21 ALT 38 Alkaline Phosphatase 87 Troponin I < 50 NT-Pro-B Natriuret Pep 25 Total Protein 7.3 Albumin 4.1 Lipase 30 Urine Color Urine Clarity Urine pH Ur Specific Gary Urine Protein Urine Ketones Urine Blood Urine Nitrite Urine Bilirubin Urine Urobilinogen Ur Leukocyte Esterase Urine Glucose Urine Opiates Screen Urine Methadone Screen Ur Barbiturates Screen Ur Tricyclics Screen Ur Amphetamines Screen U Benzodiazepines Scrn Urine Cocaine Screen Ur THC Screen Ethyl Alcohol < 3.0 COVID-19 Source SARS-CoV-2 (PCR) 10/21/21 10/21/21 10/21/21 06:15 06:20 07:20 WBC RBC Hgb Hct MCV MCH MCHC RDW Plt Count MPV Immature Gran % Neutrophils % Lymphocytes % Monocytes % Eosinophils % Basophils % Nucleated RBC % Absolute Neutrophils Absolute Lymphocytes Absolute Monocytes Absolute Eosinophils Absolute Basophils D-Dimer 755 H VBG pH VBG pCO2 VBG pO2 VBG HCO3 VBG Total CO2 VBG O2 Saturation VBG Base Excess Sodium Potassium Chloride Carbon Dioxide Anion Gap BUN Creatinine Estimated GFR/1.73 m2 Glucose Calcium Magnesium Total Bilirubin AST ALT Alkaline Phosphatase Troponin I NT-Pro-B Natriuret Pep Total Protein Albumin Lipase Urine Color Urine Clarity Urine pH Ur Specific Gary Urine Protein Urine Ketones Urine Blood Urine Nitrite Urine Bilirubin Urine Urobilinogen Ur Leukocyte Esterase Urine Glucose Urine Opiates Screen Negative Urine Methadone Screen Negative Ur Barbiturates Screen Negative Ur Tricyclics Screen Negative Ur Amphetamines Screen Negative U Benzodiazepines Scrn Positive A Urine Cocaine Screen Positive A Ur THC Screen Negative Ethyl Alcohol COVID-19 Source Nasal/Nares SARS-CoV-2 (PCR) Negative 10/21/21 07:20 WBC RBC Hgb Hct MCV MCH MCHC RDW Plt Count MPV Immature Gran % Neutrophils % Lymphocytes % Monocytes % Eosinophils % Basophils % Nucleated RBC % Absolute Neutrophils Absolute Lymphocytes Absolute Monocytes Absolute Eosinophils Absolute Basophils D-Dimer VBG pH VBG pCO2 VBG pO2 VBG HCO3 VBG Total CO2 VBG O2 Saturation VBG Base Excess Sodium Potassium Chloride Carbon Dioxide Anion Gap BUN Creatinine Estimated GFR/1.73 m2 Glucose Calcium Magnesium Total Bilirubin AST ALT Alkaline Phosphatase Troponin I NT-Pro-B Natriuret Pep Total Protein Albumin Lipase Urine Color Yellow Urine Clarity Clear Urine pH 6.0 Ur Specific Gary 1.010 Urine Protein Negative Urine Ketones Negative Urine Blood Negative Urine Nitrite Negative Urine Bilirubin Negative Urine Urobilinogen 1.0 H Ur Leukocyte Esterase Negative Urine Glucose Negative Urine Opiates Screen Urine Methadone Screen Ur Barbiturates Screen Ur Tricyclics Screen Ur Amphetamines Screen U Benzodiazepines Scrn Urine Cocaine Screen Ur THC Screen Ethyl Alcohol COVID-19 Source SARS-CoV-2 (PCR)
[2021-10-21] MEDS: Propranolol 60 MG CAPCR PO (12:42)
[2021-10-21] MEDS: Multivitamin TAB 1 TAB PO (12:54)
[2021-10-21] MEDS: Amoxicillin 875/Clav. 125 TAB PO (12:54)
[2021-10-21] MEDS: Folic Acid 1 MG TAB PO (12:54)
[2021-10-21] MEDS: Azithromycin 250 MG TAB 500 MG PO (12:54)
[2021-10-21] MEDS: predniSONE 20 MG TAB 60 MG PO (12:55)
[2021-10-21] MEDS: chlordiazePOXIDE 25 MG CAP 50 MG PO (13:38)
[2021-10-21] MEDS: LORazepam 1 MG TAB PO/SL (13:38)
[2021-10-21] MEDS: THIAMINE 100 MG in Normal Saline 100 ML 200 MG IVPB (14:01)
[2021-10-21 15:06] LABS: Troponin I < 50 ng/L (<or=60)
--- NOTE | 2021-10-21 17:17 | DSE_ITS ---
Date of service: 10/21/21 Time of Service: 17:17 DS: Diagnosis Discharge Diagnosis (1) E-cigarette or vaping product use associated lung injury (EVALI): Status: Acute Asessment and Plan: see admission H&P for details of his presentation/exam/clinical finding. Patient was admitted to med/surg floor and started on steroids (prednisone after initial decadron given in the ER) and put on bronchodilators, supplemental oxygen, oral antibiotics and given IS and acapella. Patient was insistent on leaving the hospital and refused to stay long enough to correct his lung injury and correct his hypoxemia. Patient left the hospital against medical advice. Because of his heavy drinking hx he was put on CIWA protocol and was started on librium for his agitation. He has chronic anxiety and depression disorder and has chronic migraines. His CIWA scores were partially attributed to his chronic anxiety and migraines however he did become more restless and insistent on leaving the hospital and refused to stay long enough to receive any outpatient discharge treatment. (2) Hypoxia: Status: Acute (3) Smoker: Status: Acute Discharge Plan Disposition Patient Disposition: AGAINST MEDICAL ADVICE Condition: Stable Discharge Details Reason For Visit: Chemical Pneumonitis Admit Date/Time: 10/21/21 08:30 Admit Provider: John Snyder Attending Provider: John Snyder Primary Care Provider: [place] Home Meds and New Rx's Prescriptions: Continued venlafaxine 75 mg capsule,extended release 24hr 75 mg PO DAILY Qty: 30 2RF propranolol 60 mg capsule,extended release 24 hr 60 mg PO DAILY Qty: 30 2RF meloxicam 15 mg tablet 15 mg PO DAILY Qty: 30 2RF Discharge Instructions Activity:: Activity as Tolerated Equipment/Supplies:: No Equipment Needed Diet:: As Tolerated Discharge Data Discharge Date/Time-TO BE ENTERED AT DEPARTURE: 10/21/21 16:09 DS: Summary Time Spent with Patient providing and/or coordinating discharge services: Less than 30 minutes Status at Discharge Functional status at discharge: independent ambulation Overall status at discharge: patient is not back to baseline Mental Status: mental status grossly normal Speech and Movement: speech and movement normal Mood: irritable mood Affect: anxious affect Exam Narrative Exam Narrative: see admission H&P Psych Mental Status: mental status grossly normal Speech and Movement: speech and movement normal Mood: irritable mood Affect: anxious affect DS: Data Vitals/I&O Vitals and I&O: Vital Signs Temperature 36.6 C 10/21/21 13:44 Temperature Source Tympanic 10/21/21 13:44 Pulse 113 H 10/21/21 15:38 Pulse Rhythm Regular 10/21/21 15:56 Pulse 88 10/21/21 09:10 Respiratory Rate 26 H 10/21/21 13:44 Respiratory Effort 10/21/21 15:56 Respiratory Depth Deep 10/21/21 15:56 Respiratory Pattern Tachypnea 10/21/21 15:56 Blood Pressure 172/96 H 10/21/21 13:44 Blood Pressure Mean 67 10/21/21 09:00 Blood Pressure Position Sitting 10/21/21 05:52 Pulse Oximetry 97 10/21/21 13:44 Oxygen Delivery Method Nasal Cannula 10/21/21 13:44 Oxygen Flow Rate 2 10/21/21 13:44 Pain Level 6 10/21/21 13:44 Intake & Output 10/20/21 10/21/21 10/21/21 23:59 11:59 23:59 Intake Total 1500 / 1740 240 / 1740 Balance 1500 / 1740 240 / 1740 Weight 117.934 kg Intake: IV 1500 / 1500 Oral 240 / 240 Other: Urine Appearance Clear Clear Stool Size Large Stool Characteristics Liquid Voiding Methods Toilet Data Completed and Pending Labs on day of discharge: Labs from last 24 hours 10/21/21 10/21/21 10/21/21 14:45 07:20 07:20 WBC RBC Hgb Hct MCV MCH MCHC RDW Plt Count MPV Immature Gran % Neutrophils % Lymphocytes % Monocytes % Eosinophils % Basophils % Nucleated RBC % Absolute Neutrophils Absolute Lymphocytes Absolute Monocytes Absolute Eosinophils Absolute Basophils D-Dimer VBG pH VBG pCO2 VBG pO2 VBG HCO3 VBG Total CO2 VBG O2 Saturation VBG Base Excess Sodium Potassium Chloride Carbon Dioxide Anion Gap BUN Creatinine Estimated GFR/1.73 m2 Glucose Calcium Magnesium Total Bilirubin AST ALT Alkaline Phosphatase Troponin I < 50 NT-Pro-B Natriuret Pep Total Protein Albumin Lipase Urine Color Yellow Urine Clarity Clear Urine pH 6.0 Ur Specific Mathews 1.010 Urine Protein Negative Urine Ketones Negative Urine Blood Negative Urine Nitrite Negative Urine Bilirubin Negative Urine Urobilinogen 1.0 H Ur Leukocyte Esterase Negative Urine Glucose Negative Urine Opiates Screen Negative Urine Methadone Screen Negative Ur Barbiturates Screen Negative Ur Tricyclics Screen Negative Ur Amphetamines Screen Negative U Benzodiazepines Scrn Positive A Urine Cocaine Screen Positive A Ur THC Screen Negative Ethyl Alcohol COVID-19 Source SARS-CoV-2 (PCR) 10/21/21 10/21/21 10/21/21 06:20 06:15 06:15 WBC 14.43 H RBC 4.86 Hgb 14.1 Hct 40.7 MCV 83.7 MCH 29.0 MCHC 34.6 RDW 13.1 Plt Count 218 MPV 9.5 Immature Gran % 0.3 Neutrophils % 79.4 Lymphocytes % 15.2 Monocytes % 4.0 Eosinophils % 0.8 Basophils % 0.3 Nucleated RBC % 0 Absolute Neutrophils 11.46 H Absolute Lymphocytes 2.19 Absolute Monocytes 0.58 Absolute Eosinophils 0.12 Absolute Basophils 0.04 D-Dimer 755 H VBG pH VBG pCO2 VBG pO2 VBG HCO3 VBG Total CO2 VBG O2 Saturation VBG Base Excess Sodium Potassium Chloride Carbon Dioxide Anion Gap BUN Creatinine Estimated GFR/1.73 m2 Glucose Calcium Magnesium Total Bilirubin AST ALT Alkaline Phosphatase Troponin I NT-Pro-B Natriuret Pep Total Protein Albumin Lipase Urine Color Urine Clarity Urine pH Ur Specific Mathews Urine Protein Urine Ketones Urine Blood Urine Nitrite Urine Bilirubin Urine Urobilinogen Ur Leukocyte Esterase Urine Glucose Urine Opiates Screen Urine Methadone Screen Ur Barbiturates Screen Ur Tricyclics Screen Ur Amphetamines Screen U Benzodiazepines Scrn Urine Cocaine Screen Ur THC Screen Ethyl Alcohol COVID-19 Source Nasal/Nares SARS-CoV-2 (PCR) Negative 10/21/21 10/21/21 06:15 06:15 WBC RBC Hgb Hct MCV MCH MCHC RDW Plt Count MPV Immature Gran % Neutrophils % Lymphocytes % Monocytes % Eosinophils % Basophils % Nucleated RBC % Absolute Neutrophils Absolute Lymphocytes Absolute Monocytes Absolute Eosinophils Absolute Basophils D-Dimer VBG pH 7.51 H VBG pCO2 33 L VBG pO2 42 VBG HCO3 26 VBG Total CO2 22 L VBG O2 Saturation 86 VBG Base Excess 3 Sodium 139 Potassium 3.5 Chloride 101 Carbon Dioxide 25.3 Anion Gap 12.7 H BUN 13 Creatinine 1.3 Estimated GFR/1.73 m2 >= 60.00 Glucose 113 H Calcium 9.2 Magnesium 1.6 L Total Bilirubin 0.8 AST 21 ALT 38 Alkaline Phosphatase 87 Troponin I < 50 NT-Pro-B Natriuret Pep 25 Total Protein 7.3 Albumin 4.1 Lipase 30 Urine Color Urine Clarity Urine pH Ur Specific Mathews Urine Protein Urine Ketones Urine Blood Urine Nitrite Urine Bilirubin Urine Urobilinogen Ur Leukocyte Esterase Urine Glucose Urine Opiates Screen Urine Methadone Screen Ur Barbiturates Screen Ur Tricyclics Screen Ur Amphetamines Screen U Benzodiazepines Scrn Urine Cocaine Screen Ur THC Screen Ethyl Alcohol < 3.0 COVID-19 Source SARS-CoV-2 (PCR) PFSH All Active Problems (Updated 10/21/21 @ 13:34 by Janell Bermudez MD) Smoker (Acute) E-cigarette or vaping product use associated lung injury (EVALI) (Acute) Alcohol abuse (Chronic) Syncope (Chronic) Pleuritic chest pain (Acute) Shortness of breath (Acute) Pneumonitis (Acute) Hypoxia (Acute) Opioid abuse (Acute) Migraine headache (Chronic) Knee pain, right anterior (Acute) Anxiety disorder (Acute) 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 Medical History (Updated 10/21/21 @ 13:34 by Janell Bermudez MD) Attention deficit hyperactivity disorder, 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) Surgical History (Updated 10/21/21 @ 13:01 by John Sndyer) Arthroplasty of knee (04/16/12) RIGHT Excision of dorsal wrist ganglion cyst, right (05/10/16) History of arthroscopy of knee History of surgical removal of ganglion cyst (05/10/16) Social History Smoking/Tobacco Use Status: Current every day Tobacco Type: cigarettes Smoking risk assessment performed?: Yes Alcohol Intake: current Alcohol Intake frequency: a few times a week Alcohol type: beer Drug use: Daily Substance use type: marijuana, crack/cocaine and heroin Do you feel safe at home: Yes Do you feel safe in your relationship?: Yes
== END 2021-10-21 16:09 | disposition left against medical advice (07) ==
LOC: ER 08:50 → MS 11:23
PROVIDERS: Emergency Medicine; Admitting Provider Internal Medicine; Emergency Provider Emergency Medicine; PCP Family Medicine; Visit Provider Internal Medicine
DX: U07.0 Vaping-related disorder (principal); J69.1 Pneumonitis due to inhalation of oils and essences; R55 Syncope and collapse; F41.9 Anxiety disorder, unspecified; F14.90 Cocaine use, unspecified, uncomplicated; R09.02 Hypoxemia; G43.909 Migraine, unspecified, not intractable, without status migrainosus; F11.10 Opioid abuse, uncomplicated; R07.81 Pleurodynia; F12.90 Cannabis use, unspecified, uncomplicated; F17.210 Nicotine dependence, cigarettes, uncomplicated; F10.10 Alcohol abuse, uncomplicated
CPT/HCPCS: 36415; 71275; 80053; 80307; 82805; 83690; 87635; 93005; 94640; 96361; 96374; 96375; 99285; J1650; 80320; 81003; 83735; 83880; 84484; 85025; 85379; 93010; 99235; G0378; J1100; J2060; J3490; J7512; J7614; J7620

== ENCOUNTER 2021-10-22 12:23 | Emergency (ER) | payer MEDICAID, SELFPAY ==
[2021-10-22] VITALS (27 sets, daily range): BP systolic 115–140; BP diastolic 40–80; PULSE 56–102; RESP 14–37; TEMP 37.3; O2SAT 94–100
--- NOTE | 2021-10-22 12:45 | RT.EKG_ITS ---
APPROVED REPORT Exam: Resting ECG Reason for Exam: chest pain Patient Location: E HR:92 bpm ECG Measurements Heart Rate 92 AXIS KS 132 P 57 QRSd 94 QRS 30 QT 359 T 32 QTc 443 Conclusion Sinus rhythm...normal P axis, V-rate 60- 99 normal sinus rhythm, normal axis, normal intervals, non ischemic
--- NOTE | 2021-10-22 13:37 | ED.GENADUL_ITS ---
Discharge Plan Disposition Patient Disposition: HOME Condition: Stable Discharge Details Clinical Impression: Pneumonitis Primary Care Provider: [facility] Provider: John Carrasco Home Meds and New Rx's Prescriptions: New azithromycin 250 mg tablet See Rx Instructions .ROUTE .COMPLEX Qty: 6 0RF Rx Instructions: For 250 mg dose pack: take 500 mg today (day 1), then 250 mg for 4 days (days 2-5) levalbuterol tartrate [Xopenex HFA] 45 mcg/actuation HFA aerosol inhaler 2 inh inhalation Q6H PRN (Reason: shortness of breath or wheezing) Qty: 15 0RF prednisone 20 mg tablet 60 mg PO DAILY 5 Days Qty: 15 0RF prednisone 10 mg tablet 10 mg PO DAILY Qty: 41 0RF Rx Instructions: 50 mg by mouth for 3 days, 40 mg by mouth for 3 days, 20 mg by mouth for 3 days, 10 mg by mouth for 3 days, then 5 mg by mouth for 3 days Continued venlafaxine 75 mg capsule,extended release 24hr 75 mg PO DAILY Qty: 30 2RF propranolol 60 mg capsule,extended release 24 hr 60 mg PO DAILY Qty: 30 2RF meloxicam 15 mg tablet 15 mg PO DAILY Qty: 30 2RF Discharge Instructions Instructions: Pneumonitis (ED) Additional Instructions: Your vital signs actually are improved from yesterday and you do not require admission. Xopenex, Z-Awais and steroids as directed. You will take 60 mg of prednisone for the first 5 days and then drop to 50 mg for 3 days, 40 mg for 3 days, 20 mg for 3 days, 10 mg for 3 days, and 5 mg 3 days. Stop vaping or using any illicit drugs. Drink alcohol in moderation. [id number] Tylenol and/or Motrin as directed for discomfort. Please watch for new or worsening symptoms and return to the ER for any concerns. Lastly, I would like you to contact your primary care provider first thing Sunday morning to discuss your ER visit and need for outpatient reevaluation Discharge Data Discharge Date/Time-TO BE ENTERED AT DEPARTURE: 10/22/21 15:35 Medical Decision Making 26-year-old gentleman, seen in her ER yesterday subsequently mid with pneumonitis and EVALI, then left the floor AMA. He presents today now complaining of the same symptoms as yesterday. After reviewing his records from yesterday he actually appears much improved. Today he is hemodynamically stable, pulse in the 80s, respirations 24, afebrile, O2 sats are 98% on room air. While he does report chest pain I believe we already have a clear etiology, will obtain IV access, initiate cardiac work-up including a single troponin and EKG. He actually had a CTA of the chest yesterday, no PE. I see no clear indication to reimage his chest today. Laboratory values today reveal leukocytosis of 15.09 which is near what it was yesterday, and he did receive steroids. Again he appears well, nontoxic. Electrolytes unremarkable. Anion gap minimally elevated at 13.9. He is receivi ng 1 L IV fluid. Creatinine 1.0 with a GFR greater than 60. Magnesium 2.2, troponin less than 50. I was able to review the note yesterday from his admission as well as his pulmonary consultation. I was unable to speak with Dr. Grossman who happens to be the hospitalist now as well as who cared for him yesterday. At this time given his vital signs, laboratory values, and overall presentation, he does not require admission. The plan would have been to have the patient admitted until he no longer required supplemental oxygen which he does not now. Reviewing the records it appears as though the plan would have been to place him on a steroid taper, azithromycin, and an inhaler. Based upon the notes from Dr. Lopez, pulmonology, I will provide these prescriptions as an outpatient. This plan was discussed with patient. He is agreeable and has no additional questions or concerns. Strict discharge and return precautions were provided This documentation was generated using M-Factoration system, please disregard any oddities of phrase or misspellings. Medical Records Medical records reviewed: Yes I reviewed the patient's medical records. Lab Data Lab results reviewed: Yes I reviewed the patient's lab results. Labs: Laboratory Tests Range/Units 10/22/21 10/22/21 13:30 13:30 WBC (4.4-10.8) 10^3/uL 15.09 H RBC (4.36-5.78) 10^6/uL 4.62 Hgb (13.5-17.5) g/dL 13.5 Hct (40.0-50.0) % 39.4 L MCV (80-95) fL 85.3 MCH (27.0-33.0) pg 29.2 MCHC (32.0-36.0) % 34.3 RDW (11.8-14.1) % 13.4 Plt Count (130-400) 10^3/uL 231 MPV (8.0-11.0) fL 10.0 Immature Gran % 0.3 Neutrophils % 72.9 Lymphocytes % 19.7 Monocytes % 7.0 Eosinophils % 0.0 Basophils % 0.1 Nucleated RBC % % 0 Absolute Neutrophils (1.2-6.7) 10^3/uL 11.00 H Absolute Lymphocytes (1.2-3.4) 10^3/uL 2.97 Absolute Monocytes (0.1-0.8) 10^3/uL 1.06 H Absolute Eosinophils (0.0-0.7) 10^3/uL 0.00 Absolute Basophils (0.0-0.2) 10^3/uL 0.02 Sodium (136-145) mmol/L 140 Potassium (3.5-5.1) mmol/L 3.8 Chloride (98-107) mmol/L 104 Carbon Dioxide (21.0-32.0) mmol/L 22.1 Anion Gap (3-11) mmol/L 13.9 H BUN (7-18) mg/dL 13 Creatinine (0.70-1.30) mg/dL 1.0 Estimated GFR/1.73 m2 (mL/min/1.73m2) >= 60.00 Glucose (74-106) mg/dL 94 Calcium (8.5-10.1) mg/dL 9.4 Magnesium (1.8-2.4) mg/dL 2.2 Total Bilirubin (0.2-1.0) mg/dL 0.3 AST (15-37) U/L 22 ALT (16-63) U/L 33 Alkaline Phosphatase (46-116) U/L 83 Troponin I (<or=60) ng/L < 50 Total Protein (6.4-8.2) g/dL 7.3 Albumin (3.4-5.0) g/dL 3.7 ECG Data Attestation: I personally reviewed and interpreted this ECG (s) as follows: Interpretation: Sinus rhythm, ventricular rate of 92, no STEMI HPI General Mode of arrival: ambulatory . Date/Time Provider Initiated Documentation: 10/22/21 12:24 . Limitations to Documentation: no limitations . Information obtained by: patient . HPI Narrative: Is a 26-year-old gentleman, past medical history that includes polyps abuse, migraines, anxiety and depression, current smoker-vape use, he was actually seen in the ER yesterday and subsequently admitted for pneumonitis, later left the floor AMA, presenting to the ER reporting ongoing cough, generalized weakness, shortness of breath, chest pain. Patient reports the symptoms are very similar to what they were yesterday. When he left AMA yesterday he left before any medications could be given via prescription. He denies any trauma since leaving the hospital. He admits to drinking 6 beers this morning. He denies headache, fever, abdominal pain, nausea vomiting with pain or swelling in his extremities. Related Data Home Medications Medication Instructions Recorded Confirmed meloxicam 15 mg tablet 15 mg PO DAILY #30 tab 10/11/21 10/22/21 propranolol 60 mg capsule,24 60 mg PO DAILY #30 cap 10/11/21 10/22/21 hr,extended release venlafaxine 75 mg capsule,extended 75 mg PO DAILY #30 cap 10/11/21 10/22/21 release 24 hr azithromycin 250 mg tablet See Rx Instructions .ROUTE 10/22/21 .COMPLEX #6 tab levalbuterol tartrate 45 2 inh INHALATION Q6H PRN #15 g 10/22/21 mcg/actuation aerosol inhaler (Xopenex HFA) prednisone 10 mg tablet 10 mg PO DAILY #41 tab 10/22/21 prednisone 20 mg tablet 60 mg PO DAILY 5 Days #15 tab 10/22/21 Previous Rx's Medication Instructions Recorded meloxicam 15 mg tablet 15 mg PO DAILY #30 tab 10/11/21 propranolol 60 mg capsule,24 60 mg PO DAILY #30 cap 10/11/21 hr,extended release venlafaxine 75 mg capsule,extended 75 mg PO DAILY #30 cap 10/11/21 release 24 hr azithromycin 250 mg tablet See Rx Instructions .ROUTE 10/22/21 .COMPLEX #6 tab levalbuterol tartrate 45 2 inh INHALATION Q6H PRN #15 g 10/22/21 mcg/actuation aerosol inhaler (Xopenex HFA) prednisone 10 mg tablet 10 mg PO DAILY #41 tab 10/22/21 prednisone 20 mg tablet 60 mg PO DAILY 5 Days #15 tab 10/22/21 Allergies Allergy/AdvReac Type Severity Reaction Status Date / Time cephalexin [Cephalexin] Allergy Intermediate RASH Unverified 10/22/21 12:56 honey Allergy Mild Hives Unverified 10/22/21 12:56 General Stated Complaint: Chest Pain GABRIEL: 2 Review of Systems Constitutional Constitutional: Denies fever(s) ENT Ears, Nose, Mouth, and Throat: Denies neck pain Cardiovascular Cardiovascular: Reports chest pain and Reports dyspnea Respiratory Respiratory: Reports cough and Reports dyspnea Gastrointestinal Gastrointestinal: Denies abdominal pain, Denies nausea and Denies vomiting Musculoskeletal Musculoskeletal: Denies back pain and Denies neck pain Integumentary/Breasts Skin/Breast: Denies rash PFSH All Active Problems Smoker (Acute) E-cigarette or vaping product use associated lung injury (EVALI) (Acute) Alcohol abuse (Chronic) Pleuritic chest pain (Acute) Shortness of breath (Acute) Pneumonitis (Acute) Hypoxia (Acute) Opioid abuse (Acute) Migraine headache (Chronic) Knee pain, right anterior (Acute) Anxiety disorder (Acute) 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 Medical History Attention deficit hyperactivity disorder, 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) Surgical History Arthroplasty of knee (04/16/12) RIGHT Excision of dorsal wrist ganglion cyst, right (05/10/16) History of arthroscopy of knee History of surgical removal of ganglion cyst (05/10/16) Social History Smoking/Tobacco Use Status: Current every day Tobacco Type: cigarettes Smoking risk assessment performed?: Yes Alcohol Intake: current Alcohol Intake frequency: a few times a week Alcohol t ype: beer Drug use: Daily Substance use type: marijuana, crack/cocaine and heroin Details: 10/22/21--states drank a 6-pack of beer this am Do you feel safe at home: Yes Do you feel safe in your relationship?: Yes Exam Const General: cooperative, healthy appearing, comfortable and no acute distress Orientation: alert, awake and oriented x3 [facility] Head: normal to inspection, normocephalic and atraumatic Mouth: moist mucous membranes Eyes General: appearance normal, both eyes and all related structures Conjunctivae: conjunctivae normal Neck Neck: normal visual inspection, full ROM, no lymphadenopathy, no meningeal signs, trachea midline, supple and nontender Resp Effort & Inspection: normal respiratory effort, able to speak in complete sentences and cough Quality of cough: dry (Mild) Auscultation: diminished lung sounds bilaterally in the lower lung kwon and wheezes (Rare, scattered, mostly clear with cough) Cardio Rate: regular rate Rhythm: regular rhythm GI Palpation: soft and nontender Back/Spine/Pelvis Back: No back tenderness Skin Rashes: no rashes Neuro General: patient alert, patient awake, patient oriented x3, moves all extremities and no focal motor deficits Cognition: normal cognition Speech: speech normal Gait: normal gait Motor: muscle tone normal throughout Sensory Exam: no sensory deficits noted Extrem General: normal to inspection, full ROM and capillary refill normal Psych Appearance: grossly normal Mental Status: mental status grossly normal Course Vital Signs Vital signs: Vital Signs Temperature 37.3 C 10/22/21 12:32 Pulse 89 10/22/21 12:32 Respiratory Rate 24 10/22/21 12:32 Blood Pressure 116/66 10/22/21 12:32 Pulse Oximetry 98 10/22/21 12:32 Temperature 37.3 C 10/22/21 12:32 Temperature Source Temporal Artery Scan 10/22/21 12:32 Pulse 89 10/22/21 12:32 Respiratory Rate 24 10/22/21 12:32 Respiratory Effort 10/22/21 12:51 Blood Pressure 116/66 10/22/21 12:32 Blood Pressure Position Sitting 10/22/21 12:32 Pulse Oximetry 98 10/22/21 12:32 Oxygen Delivery Method Room Air 10/22/21 12:32 Oxygen Flow Rate 0 10/22/21 12:32 Pain Level 7 10/22/21 12:32 PAWSS Have you Been Recently Intoxicated or Drunk Within the Last 30 days?: Yes Have you Ever Experienced Previous Episodes of Alcohol Withdrawal?: No Have you ever Experienced Withdrawal Seizures?: No Have you ever Experienced Delirium Tremens(DT)s?: No Have you ever undergone Alcohol Rehabilitation Treatment (i.e, inpt ot outpatient treatment programs)?: No Have you ever Experienced Blackouts?: Yes Have you ever Combined Alcohol with other Downers within the last 90 days?: Yes Have you ever Combined Alcohol with any other Substance of Abuse during the last 90 days?: Yes Positive Blood Alcohol level on Presentation? [PCS.BAL]: Yes Evidence of Increased Autonomic Activity (i.e. HR>120, tremor, sweating, agitation, nausea)?: Yes Result: 6
[2021-10-22] MEDS: Normal Saline 1,000 ML 125 ML IV (13:42)
[2021-10-22 13:52] LABS: Abs Immature Grans 0.05 10^3/uL (0.0-0.06); Absolute Basophil Count 0.02 10^3/uL (0.0-0.2); Absolute Lymphocyte Count 2.97 10^3/uL (1.2-3.4); Basophils % 0.1; HCT 39.4 % (40.0-50.0); HGB 13.5 g/dL (13.5-17.5); Immature Grans % 0.3; Lymphocytes % 19.7; MCH 29.2 pg (27.0-33.0); MCHC 34.3 % (32.0-36.0); MCV 85.3 fL (80-95); Neutrophils % 72.9; Nucleated RBC 0 %; Platelet Count 231 10^3/uL (130-400); RBC 4.62 10^6/uL (4.36-5.78); RDW 13.4 % (11.8-14.1); RDW-SD 41.1 fL; WBC 15.09 10^3/uL (4.4-10.8)
[2021-10-22 13:54] LABS: Absolute Monocyte Count 1.06 10^3/uL (0.1-0.8)
[2021-10-22 14:15] LABS: ALT 33 U/L (16-63); AST 22 U/L (15-37); Albumin 3.7 g/dL (3.4-5.0); Alkaline Phosphatase 83 U/L (46-116); Anion Gap 13.9 mmol/L (3-11); BUN 13 mg/dL (7-18); Bilirubin, Total 0.3 mg/dL (0.2-1.0); CO2 22.1 mmol/L (21.0-32.0); Calcium 9.4 mg/dL (8.5-10.1); Chloride 104 mmol/L (98-107); Glucose 94 mg/dL (74-106); Magnesium 2.2 mg/dL (1.8-2.4); Potassium 3.8 mmol/L (3.5-5.1); Sodium 140 mmol/L (136-145); Total Protein 7.3 g/dL (6.4-8.2); Troponin I < 50 ng/L (<or=60)
== END 2021-10-22 15:35 | disposition home or self-care (01) ==
PROVIDERS: Emergency Provider Physician Assistant; PCP Family Medicine
DX: J18.9 Pneumonia, unspecified organism (principal); R07.9 Chest pain, unspecified; R06.02 Shortness of breath
CPT/HCPCS: 36415; 80053; 93005; 99283; 83735; 84484; 85025; 93010

== ENCOUNTER 2022-05-30 02:30 | Emergency (ER) | payer MEDICAID, SELFPAY ==
[2022-05-30] VITALS (8 sets, daily range): BP systolic 111–137; BP diastolic 47–72; PULSE 55–105; RESP 16; TEMP 37.2–37.7; O2SAT 93–98
--- NOTE | 2022-05-30 02:15 | RT.EKG_ITS ---
APPROVED REPORT Exam: Resting ECG Reason for Exam: sob Patient Location: E HR:84 bpm ECG Measurements Heart Rate 84 AXIS HI 142 P 47 QRSd 95 QRS 13 QT 357 T 10 QTc 422 Conclusion Sinus rhythm...normal P axis, V-rate 60- 99
--- NOTE | 2022-05-30 02:46 | ED.GENADUL_ITS ---
Discharge Plan Disposition Patient Disposition: HOME Condition: Stable Discharge Details Clinical Impression: Migraine headache, COVID Primary Care Provider: [facility] Provider: Josiah Crockett Home Meds and New Rx's Prescriptions: Continued albuterol sulfate [Ventolin HFA] 90 mcg/actuation HFA aerosol inhaler 2 puff inhalation QID PRN (Reason: shortness of breath or wheezing) Qty: 6.7 3RF Discharge Instructions Instructions: COVID-19 (Coronavirus Disease 2019) (ED) Additional Instructions: follow up with your primary care provider as needed if you have difficulty breathing, feel more ill or persistent vomiting return to the emergency department try to isolate until your quarantine period is over per the cdc guidelines Medical Decision Making 26 yo male with hx of prior opioid abuse who states he hasn't used in over 5 months, migraines that he gets on average twice a week comes in with head pain similar to his prior migraines. He states it has slowly been worsening since yesterday morning when he got his kids on the bus. He noted some mild anterior chest twinging as well in the morning that lasted several minutes and went away and currently has no chest pain. He denies fevers though hasa low grade temp of 37.7 here. He arrives stable speaking in full sentences with clear speech and caox4. He does have photophobia, eomi, perrl, no periorbital swelling, normal appearing conjunctiva, no neck stiffness or meningismus, clear lungs, no murmurs, no focal deficits on exam. Given his history suspect migraine, will treat with dexamethasone, toradol and compazine and reassess. Given his history and pain slowly worsened, not thunderclap doubt hemorrhage and do not feel ct of the head indicated. His exam and history make chief medical technologist infection unlikely and do not feel LP indicated at this time. His chest discomfort he had over 3 hours ago doesn't seem cardiac in nature, will send troponin, heart score is 1. He has no tearing back pain and normal vascular exam so doubt dissection. No evidence of dvt on exam and no hypoxia or tachycardia so doubt pe. No pleuritic chest pain and normal lung sounds so doubt pneumonia and do not feel xray indicated. pt resting comfortable and states pain resolved, he is positive for covid, no oxygen requirement. He is stable for d/c, advised to f/u with pcp as needed and given [facility] quarantine guidelines. return precautions given Differential Diagnosis Differential Diagnosis: migraine, tension headache, nstemi Medical Records Medical records reviewed: Yes I reviewed the patient's medical records. Lab Data Lab results reviewed: Yes I reviewed the patient's lab results. ECG Data Attestation: I personally reviewed and interpreted this ECG (s) as follows: Prior ECG tracings: available for review Interpretation: sinus rhythm, rate of 84, no acute st t wave ischemic findings HPI General Mode of arrival: ambulatory . Date/Time Provider Initiated Documentation: 05/30/22 02:38 . Limitations to Documentation: no limitations . Information obtained by: patient . History of Present Illness 26 year old M presents to the emergency department with the chief complaint of migraine, described as moderate and severe, Quality is described as aching, and is localized to the head. Patient reports no radiation. Patient started experiencing this day(s) (1) and it has been constant. No relieving factors improve symptom(s), No exacerbating factors reported . Patient notes denies shortness of breath. Related Data Home Medications Medication Instructions Recorded Confirmed albuterol sulfate 90 mcg/actuation 2 puff inhalation QID PRN 11/16/21 05/30/22 aerosol inhaler (Ventolin HFA) shortness of breath or wheezing #6.7 grams Previous Rx's Medication Instructions Recorded albuterol sulfate 90 mcg/actuation 2 puff inhalation QID PRN 11/16/21 aerosol inhaler (Ventolin HFA) shortness of breath or wheezing #6.7 grams Allergies Allergy/AdvReac Type Severity Reaction Status Date / Time cephalexin [Cephalexin] Allergy Intermediate RASH Unverified 05/30/22 02:37 honey Allergy Mild Hives Unverified 05/30/22 02:37 General Stated Complaint: Headache GABRIEL: 3 Review of Systems All systems reviewed & are unremarkable except as noted in HPI and below Constitutional Constitutional: Denies chills, Denies fever(s) and Denies weakness Cardiovascular Cardiovascular: Denies dyspnea Respiratory Respiratory: Denies cough and Denies dyspnea Gastrointestinal Gastrointestinal: Denies abdominal pain and Denies vomiting Integumentary/Breasts Skin/Breast: Denies rash Neurologic Neurologic: Denies weakness PFSH All Active Problems (Updated 05/30/22 @ 03:35 by Josiah Crockett MD) COVID (Acute) Restless leg syndrome (Acute) Smoker (Acute) E-cigarette or vaping product use associated lung injury (EVALI) (Acute) Alcohol abuse (Chronic) Pleuritic chest pain (Acute) Shortness of breath (Acute) Pneumonitis (Acute) Hypoxia (Acute) Opioid abuse (Acute) Migraine headache (Chronic) Knee pain, right anterior (Acute) Anxiety disorder (Acute) 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 Medical History Attention deficit hyperactivity disorder, 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) Surgical History Arthroplasty of knee (04/16/12) RIGHT Excision of dorsal wrist ganglion cyst, right (05/10/16) History of arthroscopy of knee History of surgical removal of ganglion cyst (05/10/16) Social History Smoking/Tobacco Use Status: Current every day Tobacco Type: cigarettes Smoking risk assessment performed?: Yes Alcohol Intake: current Alcohol Intake frequency: 3 or more drinks per day Alcohol type: beer Drug use: Daily Substance use type: marijuana, crack/cocaine and heroin Details: 12 pack/day Do you feel safe at home: Yes Do you feel safe in your relationship?: Yes Exam Const General: no acute distress Orientation: alert HENMT Head: normal to inspection Ears: external ears normal General nose exam: external nose normal Mouth: moist mucous membranes Eyes General: appearance normal, both eyes and all related structures Neck Neck: normal visual inspection Resp Effort & Inspection: normal respiratory effort and able to speak in complete sentences Cardio Rate: regular rate Skin General skin exam: no rashes or lesions noted Neuro General: patient alert and patient oriented x3 Extrem General: normal to inspection Psych Mental Status: mental status grossly normal Course Vital Signs Vital signs: Vital Signs Temperature 37.7 C H 05/30/22 02:33 Pulse 105 H 05/30/22 02:33 Respiratory Rate 16 05/30/22 02:33 Blood Pressure 137/72 05/30/22 02:33 Pulse Oximetry 95 05/30/22 02:33 Temperature 37.7 C H 05/30/22 02:33 Temperature Source Oral 05/30/22 02:33 Pulse 105 H 05/30/22 02:33 Respiratory Rate 16 05/30/22 02:33 Respiratory Effort 05/30/22 02:33 Blood Pressure 137/72 05/30/22 02:33 Blood Pressure Position Supine 05/30/22 02:33 Pulse Oximetry 95 05/30/22 02:33 Oxygen Delivery Method Room Air 05/30/22 02:33 Oxygen Flow Rate 0 05/30/22 02:33 Pain Level 8 05/30/22 02:33
[2022-05-30 02:50] LABS: Abs Immature Grans 0.02 10^3/uL (0.0-0.06); Absolute Basophil Count 0.02 10^3/uL (0.0-0.2); Absolute Eosinophil Count 0.04 10^3/uL (0.0-0.7); Absolute Lymphocyte Count 0.39 10^3/uL (1.2-3.4); Absolute Monocyte Count 0.67 10^3/uL (0.1-0.8); Basophils % 0.3; Eosinophils % 0.6; HCT 39.8 % (40.0-50.0); Immature Grans % 0.3; Lymphocytes % 6.2; MCH 30.6 pg (27.0-33.0); MCHC 35.2 % (32.0-36.0); MCV 87 fL (80-95); MPV 10.4 fL (8.0-11.0); Monocytes % 10.6; Platelet Count 128 10^3/uL (130-400); RBC 4.58 10^6/uL (4.36-5.78); RDW 13.5 % (11.8-14.1); RDW-SD 42.3 fL; WBC 6.34 10^3/uL (4.4-10.8)
[2022-05-30 02:52] LABS: Source Nasal/Nares
[2022-05-30] MEDS: Ketorolac 15 MG/ML VIAL IVP (02:57)
[2022-05-30] MEDS: Prochlorperazine 10 MG/2 ML VIAL IVP (02:57)
[2022-05-30] MEDS: Dexamethasone 10 MG/ML VIAL IVP (02:57)
[2022-05-30 03:13] LABS: ALT 24 U/L (16-63); AST 19 U/L (15-37); Albumin 4.2 g/dL (3.4-5.0); Alkaline Phosphatase 106 U/L (46-116); Anion Gap 9.1 mmol/L (3-11); BUN 12 mg/dL (7-18); Bilirubin, Total 0.4 mg/dL (0.2-1.0); CO2 23.9 mmol/L (21.0-32.0); CREATININE 1.3 mg/dL (0.70-1.30); Chloride 98 mmol/L (98-107); Estimated GFR 78.18 (mL/min/1.73m2); Glucose 113 mg/dL (74-106); Magnesium 1.4 mg/dL (1.8-2.4); Potassium 3.1 mmol/L (3.5-5.1); Sodium 131 mmol/L (136-145); Total Protein 7.2 g/dL (6.4-8.2); Troponin I < 50 ng/L (<or=60)
[2022-05-30 03:27] LABS: COVID-19 PCR POSITIVE (Negative)
== END 2022-05-30 06:34 | disposition home or self-care (01) ==
PROVIDERS: Emergency Provider Emergency Medicine; PCP Family Medicine
DX: G43.909 Migraine, unspecified, not intractable, without status migrainosus (principal); U07.1 COVID-19; R07.89 Other chest pain
CPT/HCPCS: 36415; 80053; 87635; 93005; 96374; 96375; 99284; 83735; 84484; 85025; 93010; J0780; J1100; J1885

== ENCOUNTER 2022-08-29 15:00 | Emergency (ER) | payer MEDICAID, SELFPAY ==
[2022-08-29 15:13] VITALS: BP 156/103; PULSE 99; RESP 50; TEMP 36.6; O2SAT 100
--- NOTE | 2022-08-29 17:10 | DI.CT_ITS ---
Exam(s) CT HEAD WO EXAM: CT HEAD WO CLINICAL HISTORY: new onset martin. TECHNIQUE: Imaging Protocol: Axial computed tomography images with coronal and sagittal reformatted images were created and reviewed COMPARISON: CT HEAD AND CSPINE W/O CONTRAST from 09/25/2016 FINDINGS: Ventricles and Extra axial spaces: Normal in size and morphology for the patient's age. Hemorrhage: None. Cerebral parenchyma: Normal. Midline shift: None. Brainstem/Cerebellum: Normal. Calvarium: Normal. Visualized Paranasal sinuses/Mastoids: Clear. Soft Tissues: Unremarkable. IMPRESSION: No acute intracranial process. RADIATION DOSE DELIVERED: 841.66mGy.cm Total DLP DATA REPOSITORY: All CT scans at this facility are submitted to the National Radiology Data Registry (NRDR) Dose Index Registry (DIR) with the [employer] (A[employer]). RADIATION OPTIMIZATION: All CT scans at this facility use at least one of these dose optimization te chniques: automated exposure control; mA and/or kV adjustment per patient size (includes targeted exa ms where dose is matched to clinical indication); or iterative reconstruction.
[2022-08-29] MEDS: diphenhydrAMINE 50 MG/ML VIAL 25 MG IVP (17:13)
[2022-08-29] MEDS: Dexamethasone 10 MG/ML VIAL IVP (17:13)
[2022-08-29] MEDS: Prochlorperazine 10 MG/2 ML VIAL IVP (17:13)
[2022-08-29 17:36] LABS: Abs Immature Grans 0.02 10^3/uL (0.0-0.06); Absolute Basophil Count 0.02 10^3/uL (0.0-0.2); Absolute Eosinophil Count 0.07 10^3/uL (0.0-0.7); Absolute Lymphocyte Count 2.47 10^3/uL (1.2-3.4); Absolute Monocyte Count 0.71 10^3/uL (0.1-0.8); Absolute Neutrophil Count 6.26 10^3/uL (1.2-6.7); Basophils % 0.2; Eosinophils % 0.7; HCT 50.1 % (40.0-50.0); HGB 17.6 g/dL (13.5-17.5); Immature Grans % 0.2; Lymphocytes % 25.9; MCH 30.7 pg (27.0-33.0); MCHC 35.1 % (32.0-36.0); MCV 87 fL (80-95); Monocytes % 7.4; Neutrophils % 65.6; Platelet Count 187 10^3/uL (130-400); RBC 5.73 10^6/uL (4.36-5.78); RDW 12.5 % (11.8-14.1); RDW-SD 39.6 fL; WBC 9.55 10^3/uL (4.4-10.8)
[2022-08-29 17:50] LABS: ALT 45 U/L (16-63); AST 35 U/L (15-37); Albumin 5.1 g/dL (3.4-5.0); Alkaline Phosphatase 132 U/L (46-116); Anion Gap 11.4 mmol/L (3-11); BUN 15 mg/dL (7-18); Bilirubin, Total 0.6 mg/dL (0.2-1.0); CO2 26.6 mmol/L (21.0-32.0); CREATININE 1.3 mg/dL (0.70-1.30); Chloride 102 mmol/L (98-107); Glucose 111 mg/dL (74-106); Potassium 3.6 mmol/L (3.5-5.1); Sodium 140 mmol/L (136-145)
--- NOTE | 2022-08-29 17:51 | DI.VRAD_ITS ---
PROCEDURE INFORMATION: Exam: CT Head Without Contrast Exam date and time: 08/29/2022 5:06 PM Age: 27 years old Clinical indication: Other: New onset BALL TECHNIQUE: Imaging protocol: Computed tomography of the head without contrast. Radiation optimization: All CT scans at this facility use at least one of these dose optimization techniques: automated exposure control; mA and/or kV adjustment per patient size (includes targeted exams where dose is matched to clinical indication); or iterative reconstruction. COMPARISON: CT HEAD AND CSPINE W/O CONTRAST 09/25/2016 11:47 AM FINDINGS: Brain: Normal. No hemorrhage. Unremarkable white matter. No mass effect. Cerebral ventricles: No ventriculomegaly. Paranasal sinuses: Visualized sinuses are unremarkable. No fluid levels. Mastoid air cells: Visualized mastoid air cells are well aerated. Bones/joints: Unremarkable. No acute fracture. Soft tissues: Unremarkable. IMPRESSION: No acute intracranial abnormality. Dictated and Authenticated by: Cody Andrews MD. Ordering:KULDIP Gaviria MD
--- NOTE | 2022-08-29 18:29 | ED.GENADUL_ITS ---
Discharge Plan Disposition Patient Disposition: Home Condition: Stable Discharge Details Clinical Impression: Headache Primary Care Provider: [facility] Provider: Khadra Rosales Home Meds and New Rx's Prescriptions: New prochlorperazine maleate [Compazine] 10 mg tablet 10 mg PO Q6H PRNQty: 10 0RF Continued albuterol sulfate [Ventolin HFA] 90 mcg/actuation HFA aerosol inhaler 2 puff inhalation QID PRN (Reason: shortness of breath or wheezing) Qty: 6.7 3RF Discharge Instructions Additional Instructions: Follow-up with the neurologist To Compazine as needed for nausea and headache Take Motrin and Tylenol for pain control Return earlier should he have new or worsening complaints Referrals: Phyllis Perez MD [ [facility] STAFF PHYSICIAN] - Discharge Data Discharge Date/Time-TO BE ENTERED AT DEPARTURE: 08/29/22 19:08 Medical Decision Making This 27-year-old male presents with change in headache, secondary to pain and headache pattern, labs states Ordered, CT radiology interpretation my review does not show acute abnormality Labs are all within normal limits Patient is fully alert and oriented and has a nonfocal neurological exam After a migraine cocktail consisting of Benadryl and Compazine with some IV hydration, he is feeling marked improvement in symptoms and requests discharge home Stimulant referral to neurology in the outpatient setting and a prescription for Compazine for home as needed Discharged home in stable condition Medical Records Medical records reviewed: Yes I reviewed the patient's medical records. Lab Data Lab results reviewed: Yes I reviewed the patient's lab results. HPI General Date/Time Provider Initiated Documentation: 08/29/22 15:06 . HPI Narrative: This 27-year-old gentleman presents with headaches for the past 3 days. And had some blurriness in his eyes. Has had nausea. Denies any chest pain or shortness of breath. Denies any fever or chills. He has a history of migraines with history of different. Denies acute onset of symptoms. She denies any strength or sensation change. Denies any speech difficulties. Denies currently carbon monoxide Exposure or sick contacts. Related Data Home Medications Medication Instructions Recorded Confirmed albuterol sulfate 90 mcg/actuation 2 puff inhalation QID PRN 11/16/21 08/30/22 aerosol inhaler (Ventolin HFA) shortness of breath or wheezing #6.7 grams prochlorperazine maleate 10 mg 10 mg PO Q6H PRN #10 tabs 08/29/22 08/30/22 tablet (Compazine) Previous Rx's Medication Instructions Recorded albuterol sulfate 90 mcg/actuation 2 puff inhalation QID PRN 11/16/21 aerosol inhaler (Ventolin HFA) shortness of breath or wheezing #6.7 grams prochlorperazine maleate 10 mg 10 mg PO Q6H PRN #10 tabs 08/29/22 tablet (Compazine) Allergies Allergy/AdvReac Type Severity Reaction Status Date / Time cephalexin [Cephalexin] Allergy Intermediate RASH Unverified 08/30/22 04:33 honey Allergy Mild Hives Unverified 08/30/22 04:32 General Stated Complaint: Headache GABRIEL: 3 Review of Systems All systems reviewed & are unremarkable except as noted in HPI and below PFSH All Active Problems (Updated 08/30/22 @ 05:28 by Uli Gupta MD) COVID (Acute) Headache (Acute) Migraine (Chronic) Restless leg syndrome (Acute) Smoker (Acute) E-cigarette or vaping product use associated lung injury (EVALI) (Acute) Alcohol abuse (Chronic) Pleuritic chest pain (Acute) Shortness of breath (Acute) Pneumonitis (Acute) Hypoxia (Acute) Opioid abuse (Acute) Migraine headache (Chronic) Knee pain, right anterior (Acute) Anxiety disorder (Acute) 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 Medical History Attention deficit hyperactivity disorder, 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) Surgical History Arthroplasty of knee (04/16/12) RIGHT Excision of dorsal wrist ganglion cyst, right (05/10/16) History of arthroscopy of knee History of surgical removal of ganglion cyst (05/10/16) Social History Smoking/Tobacco Use Status: Current every day Tobacco Type: cigarettes Smoking risk assessment performed?: Yes Alcohol Intake: current Alcohol Intake frequency: 3 or more drinks per day Alcohol type: beer Drug use: Daily Substance use type: marijuana, crack/cocaine and heroin Details: 12 pack/day Do you feel safe at home: Yes Do you feel safe in your relationship?: Yes Exam Narrative Exam Narrative: This 27-year-old male is calm and cooperative alert and oriented, pupils equal round reactive to light and accommodation, no meningismus, normal Alert and oriented x4, cranial nerves II through XII intact, strength and sensation intact distally, ambulatory with steady gait, negative [id number], negative heel farah, negative pronator drift Const General: cooperative, comfortable and no acute distress HENMT Head: normal to inspection Mouth: oral mucosae normal Course Vital Signs Vital signs: Vital Signs Temperature 36.6 C 08/29/22 15:13 Pulse 99 H 08/29/22 15:13 Respiratory Rate 50 H 08/29/22 15:13 Blood Pressure 156/103 H 08/29/22 15:13 Pulse Oximetry 100 08/29/22 15:13 Temperature 36.6 C 08/29/22 15:13 Temperature Source Skin 08/29/22 15:13 Pulse 99 H 08/29/22 15:13 Respiratory Rate 50 H 08/29/22 15:13 Blood Pressure 156/103 H 08/29/22 15:13 Blood Pressure Position Sitting 08/29/22 15:13 Pulse Oximetry 100 08/29/22 15:13 Oxygen Delivery Method Room Air 08/29/22 15:13 Oxygen Flow Rate 0 08/29/22 15:13 Pain Level 10 08/29/22 15:13 Comment 08/29/22 15:13 Lab/Test Results Lab/Test Results: Laboratory Tests Range/Units 08/29/22 08/29/22 17:27 17:27 WBC (4.4-10.8) 10^3/uL 9.55 RBC (4.36-5.78) 10^6/uL 5.73 Hgb (13.5-17.5) g/dL 17.6 H Hct (40.0-50.0) % 50.1 H MCV (80-95) fL 87 MCH (27.0-33.0) pg 30.7 MCHC (32.0-36.0) % 35.1 RDW (11.8-14.1) % 12.5 Plt Count (130-400) 10^3/uL 187 MPV (8.0-11.0) fL 10.0 Immature Gran % 0.2 Neutrophils % 65.6 Lymphocytes % 25.9 Monocytes % 7.4 Eosinophils % 0.7 Basophils % 0.2 Nucleated RBC % (0.0-0.3) % 0.0 Absolute Neutrophils (1.2-6.7) 10^3/uL 6.26 Absolute Lymphocytes (1.2-3.4) 10^3/uL 2.47 Absolute Monocytes (0.1-0.8) 10^3/uL 0.71 Absolute Eosinophils (0.0-0.7) 10^3/uL 0.07 Absolute Basophils (0.0-0.2) 10^3/uL 0.02 Sodium (136-145) mmol/L 140 Potassium (3.5-5.1) mmol/L 3.6 Chloride (98-107) mmol/L 102 Carbon Dioxide (21.0-32.0) mmol/L 26.6 Anion Gap (3-11) mmol/L 11.4 H BUN (7-18) mg/dL 15 Creatinine (0.70-1.30) mg/dL 1.3 Est GFR (CKD-EPI 2020) (mL/min/1.73m2) 77.70 Glucose (74-106) mg/dL 111 H Calcium (8.5-10.1) mg/dL 10.0 Total Bilirubin (0.2-1.0) mg/dL 0.6 AST (15-37) U/L 35 ALT (16-63) U/L 45 Alkaline Phosphatase (46-116) U/L 132 H Total Protein (6.4-8.2) g/dL 9.0 H Albumin (3.4-5.0) g/dL 5.1 H
--- NOTE | 2022-08-29 18:42 | NUR.NOTE ---
Nursing Note: Referral faxed to [facility] Neurology migraines next couple weeks.
--- NOTE | 2022-08-31 09:53 | NUR.NOTE ---
Nursing Note: Patient called stating that he did not receive any pain medication for his migraine. All he got was a prescription for nausea. Can another physician write for some? I told him that if he was feeling worse he can return for a revisit. Another physician who does not know him would not be able to give advice. He is a pt of [facility] and I suggested that he call them for advice or appointment; that they also have an Express Care that is walk in. I also told him that Khadra GRAF would be in at 4pm. He will decide what to do.
== END 2022-08-29 19:08 | disposition home or self-care (01) ==
PROVIDERS: Emergency Provider Physician Assistant; PCP Family Medicine
DX: R51.9 Headache, unspecified (principal)
CPT/HCPCS: 36415; 80053; 96361; 96374; 96375; 99284; 70450; 85025; 99283; J0780; J1100; J1200

== ENCOUNTER 2022-08-30 03:43 | Emergency (ER) | payer MEDICAID, SELFPAY ==
[2022-08-30 03:42] VITALS: BP 149/98; PULSE 77; RESP 20; TEMP 36.7; O2SAT 99
--- NOTE | 2022-08-30 04:00 | ED.GENADUL_ITS ---
Discharge Plan Disposition Patient Disposition: Home Condition: Improving Discharge Details Chief Complaint: Headache Clinical Impression: Migraine Primary Care Provider: [facility] ED Provider: Uli Gupta Home Meds and New Rx's Prescriptions: No Action albuterol sulfate [Ventolin HFA] 90 mcg/actuation HFA aerosol inhaler 2 puff inhalation QID PRN (Reason: shortness of breath or wheezing) Qty: 6.7 3RF prochlorperazine maleate [Compazine] 10 mg tablet 10 mg PO Q6H PRNQty: 10 0RF Discharge Instructions Instructions: General Headache (ED) Additional Instructions: Please follow-up with your primary care physician. Medical Decision Making 27-year-old male history of migraine headaches presents with gradual onset headache over the last 4 days, associate with photophobia phonophobia and nausea, pain rating from posterior head to frontal area throbbing in nature, full range of motion of neck afebrile nontoxic nonmeningeal. High clinical suspicion for migraine headache versus tension headache lower suspicion for viral bacterial meningitis given history and physical, given normal CT head yesterday low suspicion for intracranial mass bleed edema or CVA. Trial of analgesia anti-inflammatory. Fluids, sumatriptan, basic labs disposition pending reassessment of symptoms 5: 27 patient resting comfortably no acute distress. Currently sleeping. Neurologically intact. HPI General Date/Time Provider Initiated Documentation: 08/30/22 03:54 . HPI Narrative: 27-year-old male history of migraine headaches presents with gradual onset heada gladys over the last several days associated with photophobia phonophobia, nausea, was evaluated yesterday found to have normal lab work and a normal head CT was sent home. Recurrent headache radiating from back of head to front of head throbbing in nature. Patient Dors is longstanding neck discomfort. No fevers no chills. Related Data Home Medications Medication Instructions Recorded Confirmed albuterol sulfate 90 mcg/actuation 2 puff inhalation QID PRN 11/16/21 08/30/22 aerosol inhaler (Ventolin HFA) shortness of breath or wheezing #6.7 grams prochlorperazine maleate 10 mg 10 mg PO Q6H PRN #10 tabs 08/29/22 08/30/22 tablet (Compazine) Previous Rx's Medication Instructions Recorded albuterol sulfate 90 mcg/actuation 2 puff inhalation QID PRN 11/16/21 aerosol inhaler (Ventolin HFA) shortness of breath or wheezing #6.7 grams prochlorperazine maleate 10 mg 10 mg PO Q6H PRN #10 tabs 08/29/22 tablet (Compazine) Allergies Allergy/AdvReac Type Severity Reaction Status Date / Time cephalexin [Cephalexin] Allergy Intermediate RASH Unverified 08/30/22 04:33 honey Allergy Mild Hives Unverified 08/30/22 04:32 General Stated Complaint: Headache GABRIEL: 3 Review of Systems Narrative: Review of Systems Constitutional: negative Eyes: negative ENT: negative Cardiovascular: negative Respiratory: negative Gastrointestinal: negative : negative Musculoskeletal: Neck pain Skin: negative Neurologic: Headache Psych: negative PFSH All Active Problems (Updated 08/30/22 @ 05:28 by Uli Gupta MD) COVID (Acute) Headache (Acute) Migraine (Chronic) Restless leg syndrome (Acute) Smoker (Acute) E-cigarette or vaping product use associated lung injury (EVALI) (Acute) Alcohol abuse (Chronic) Pleuritic chest pain (Acute) Shortness of breath (Acute) Pneumonitis (Acute) Hypoxia (Acute) Opioid abuse (Acute) Migraine headache (Chronic) Knee pain, right anterior (Acute) Anxiety disorder (Acute) 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 Medical History Attention deficit hyperactivity disorder, 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) Surgical History Arthroplasty of knee (04/16/12) RIGHT Excision of dorsal wrist ganglion cyst, right (05/10/16) History of arthroscopy of knee History of surgical removal of ganglion cyst (05/10/16) Social History Smoking/Tobacco Use Status: Current every day Tobacco Type: cigarettes Smoking risk assessment performed?: Yes Alcohol Intake: current Alcohol Intake frequency: 3 or more drinks per day Alcohol type: beer Drug use: Daily Substance use type: marijuana, crack/cocaine and heroin Details: 12 pack/day Do you feel safe at home: Yes Do you feel safe in your relationship?: Yes Exam Narrative Exam Narrative: Physical Examination General: alert, awake, cooperative, appears mildly uncomfortable HEENT: normocephalic, atraumatic; PERRL, EOM intact, conjunctiva normal; no nasal discharge; moist mucous membranes, oral and pharyngeal mucosa normal, tolerating secretions Neck: supple, trachea midline; full ROM Chest: normal to inspection Respiratory: normal respiratory effort, speaking in full sentences, clear to auscultation, no wheezing, rales or rhonchi Cardiac: regular rate, regular rhythm, S1S2 intact, no murmurs rubs or gallops GI: abdomen soft, non-tender, non-distended; no palpable mass or hepatosplenomegaly Skin: no lesions, rashes or trauma appreciated Neuro: AAOx3, normal speech, moving all extremities; cranial nerves intact 5 and 5 strength upper and lower extremities, normal voice, no ataxia Psych: Appropriate mood and affect Course Vital Signs Vital signs: Vital Signs Temperature 36.7 C 08/30/22 03:42 Pulse 77 08/30/22 03:42 Respiratory Rate 20 08/30/22 03:42 Blood Pressure 149/98 H 08/30/22 03:42 Pulse Oximetry 99 08/30/22 03:42 Temperature 36.7 C 08/30/22 03:42 Temperature Source Oral 08/30/22 03:42 Pulse 77 08/30/22 03:42 Respiratory Rate 20 08/30/22 03:42 Respiratory Effort Non-Labored 08/30/22 03:47 Blood Pressure 149/98 H 08/30/22 03:42 Blood Pressure Position Supine 08/30/22 03:42 Pulse Oximetry 99 08/30/22 03:42 Oxygen Delivery Method Room Air 08/30/22 03:42 Oxygen Flow Rate 0 08/30/22 03:42 Pain Level 10 08/30/22 03:42
[2022-08-30 04:06] LABS: Abs Immature Grans 0.01 10^3/uL (0.0-0.06); Absolute Basophil Count 0.01 10^3/uL (0.0-0.2); Absolute Lymphocyte Count 1.41 10^3/uL (1.2-3.4); Absolute Monocyte Count 0.16 10^3/uL (0.1-0.8); Absolute Neutrophil Count 5.61 10^3/uL (1.2-6.7); Basophils % 0.1; HCT 45.6 % (40.0-50.0); HGB 16.2 g/dL (13.5-17.5); Immature Grans % 0.1; Lymphocytes % 19.6; MCH 30.7 pg (27.0-33.0); MCHC 35.5 % (32.0-36.0); MCV 86 fL (80-95); Monocytes % 2.2; Platelet Count 184 10^3/uL (130-400); RBC 5.28 10^6/uL (4.36-5.78); RDW 12.4 % (11.8-14.1); RDW-SD 39.1 fL
[2022-08-30] MEDS: Ketorolac 15 MG/ML VIAL IVP (04:12)
[2022-08-30] MEDS: Normal Saline 1,000 ML 1000 ML IV (04:12)
[2022-08-30] MEDS: LORazepam 2 MG/ML VIAL 1 MG IVP (04:13)
[2022-08-30] MEDS: SUMAtriptan 6 MG/0.5 ML VIAL SC (04:13)
[2022-08-30] MEDS: Ondansetron 4 MG/2 ML VIAL IVP (04:13)
[2022-08-30 04:23] LABS: ALT 43 U/L (16-63); AST 37 U/L (15-37); Albumin 4.4 g/dL (3.4-5.0); Alkaline Phosphatase 120 U/L (46-116); BUN 16 mg/dL (7-18); Bilirubin, Total 0.6 mg/dL (0.2-1.0); CREATININE 1.1 mg/dL (0.70-1.30); Calcium 9.6 mg/dL (8.5-10.1); Chloride 102 mmol/L (98-107); Estimated GFR 94.95 (mL/min/1.73m2); Glucose 134 mg/dL (74-106); Sodium 137 mmol/L (136-145); Total Protein 8.3 g/dL (6.4-8.2)
[2022-08-30] MEDS: Lidocaine 5% Patch 1 PATCH TP (04:29)
[2022-08-30 05:39] VITALS: BP 128/67; PULSE 67; RESP 18; TEMP 36.6; O2SAT 99
--- NOTE | 2022-08-31 09:56 | NUR.NOTE ---
Nursing Note: Please see note on previous visit with Khadra Rosales.
== END 2022-08-30 05:37 | disposition home or self-care (01) ==
PROVIDERS: Emergency Provider Emergency Medicine; PCP Family Medicine
DX: G43.909 Migraine, unspecified, not intractable, without status migrainosus (principal); F90.0 Attention-deficit hyperactivity disorder, predominantly inattentive type
CPT/HCPCS: 80053; 96361; 96372; 96374; 96375; 99284; 85025; J1885; J2060; J2405

== ENCOUNTER 2022-09-01 09:00 | Emergency (ER) | payer MEDICAID, SELFPAY ==
[2022-09-01] VITALS (35 sets, daily range): BP systolic 120–153; BP diastolic 69–99; PULSE 47–90; RESP 10–25; TEMP 36.4–37; O2SAT 90–100
--- NOTE | 2022-09-01 09:00 | RT.EKG_ITS ---
APPROVED REPORT Exam: Resting ECG Reason for Exam: dizziness Patient Location: E HR:59 bpm ECG Measurements Heart Rate 59 AXIS DC 142 P 63 QRSd 89 QRS 50 QT 392 T 47 QTc 387 Conclusion Bradycardia with irregular rate...V-rate 47- 72, mean < 60
--- NOTE | 2022-09-01 10:15 | DI.CT_ITS ---
Exam(s) CT BRAIN NECK CTA EXAM: CT BRAIN NECK CTA CLINICAL HISTORY: headache right, pulsing after sneeze. TECHNIQUE: Imaging Protocol: Axial CT angiography was performed with multi-slice acquisition and mu lti-planar and/or 3D reconstructions. CONTRAST MATERIAL: Intravenous: Omnipaque 350 contrast volume:100 mL COMPARISON: CT HEAD AND CSPINE W/O CONTRAST from 09/25/[address] CHEST PE CTA from 10/21/[address] HEAD WO from 08/29/2022 FINDINGS: CT Head W/O and W: Ventricles and Extra axial spaces: Normal in size and morphology for the patient's age. Hemorrhage: None. Cerebral parenchyma: Normal. Midline shift: None. Brainstem/Cerebellum: Normal. Calvarium: Normal. Visualized Paranasal sinuses/Mastoids: Clear. Soft Tissues: Unremarkable. Enhancement: Unremarkable. CTA Neck W: Common Carotid: Right: No dissection, occlusion or significant stenosis. Left: No dissection, occlusion or significant stenosis. External Carotid: Right: No occlusion or significant stenosis. Left: No occlusion or significant stenosis. Internal Carotid: Right: No dissection, occlusion or significant stenosis. Left: No dissection, occlusion or significant stenosis. Vertebral Artery: Right: No dissection, occlusion or significant stenosis. Left: No dissection, occlusion or significant stenosis. Lung Apices: Normal. Bones: Within normal limits for the patient's age. Soft Tissues: Normal. Thyroid gland: Unremarkable. CTA Brain W: Internal Carotid Arteries: Normal. Anterior Cerebral Arteries: Right: No aneurysm, occlusion or significant stenosis. Left: No aneurysm, occlusion or significant stenosis. Middle Cerebral Arteries: Right: No aneurysm, occlusion or significant stenosis. Left: No aneurysm, occlusion or significant stenosis. Posterior Cerebral Arteries: Right: No aneurysm, occlusion or significant stenosis. Left: No aneurysm, occlusion or significant stenosis. Vertebral Arteries: Right: No aneurysm, occlusion or significant stenosis. Left: No aneurysm, occlusion or significant stenosis. Basilar Artery: No aneurysm, occlusion or significant stenosis. IMPRESSION: 1. No large vessel occlusion or significant stenosis on the CT angiography of the head. 2. No acute intracranial process. 3. No occlusion or significant stenosis on the CT angiography of the neck. 4. Findings were discussed with Dr. Hicks at 11:30 a.m. on 09/01/2022. RADIATION DOSE DELIVERED: 2,226.28mGy.cm Total DLP DATA REPOSITORY: All CT scans at this facility are submitted to the National Radiology Data Registry (NRDR) Dose Index Registry (DIR) with the [employer] (A[employer]). RADIATION OPTIMIZATION: All CT scans at this facility use at least one of these dose optimization te chniques: automated exposure control; mA and/or kV adjustment per patient size (includes targeted exa ms where dose is matched to clinical indication); or iterative reconstruction.
[2022-09-01] MEDS: diphenhydrAMINE 50 MG/ML VIAL 25 MG IVP (10:45)
[2022-09-01] MEDS: Prochlorperazine 10 MG/2 ML VIAL IVP (10:47)
--- NOTE | 2022-09-01 10:51 | W.ED.GENAD ---
Discharge Plan Disposition Patient Disposition: Against Medical Advice Discharge Details Clinical Impression: Headache Primary Care Provider: [facility] ED Provider: Ruslan iHcks Home Meds and New Rx's Prescriptions: Continued albuterol sulfate [Ventolin HFA] 90 mcg/actuation HFA aerosol inhaler 2 puff inhalation QID PRN (Reason: shortness of breath or wheezing) Qty: 6.7 3RF No Action Vyvanse 70 mg capsule 70 mg PO DAILY MDD 1 Qty: 28 0RF topiramate [Topamax] 25 mg tablet 25 mg PO QHS Qty: 30 2RF sumatriptan succinate 100 mg tablet See Rx Instructions PO .COMPLEX Qty: 14 3RF Rx Instructions: take 1 tab at onset of headache; if no relief, may repeat 1 tab after at least 2 hrs; max = 2 tabs/24 hrs PO Discharge Instructions Additional Instructions: It was recommended that you have a lumbar puncture today. You have provided informed refusal of this and are leaving AGAINST MEDICAL ADVICE. Please return to the emergenct department at any time for further work-up as recommended. Please follow-up with your primary care physician and neurology. Referrals: [facility] MD [Primary Care Provider] - Phyllis Perez MD [ [facility] STAFF PHYSICIAN] - Discharge Data Discharge Date/Time-TO BE ENTERED AT DEPARTURE: 09/01/22 15:27 Medical Decision Making 27-year-old male here with severe headache over the past 4 to 5 days, intermittent, worse with sneezing. Consider severe migraine versus acute subarachnoid hemorrhage versus CSF leak versus other. CT of the head was interpreted by radiology: No acute intracranial process.? CTA of the head and neck interpreted by radiology: IMPRESSION: 1. No large vessel occlusion or significant stenosis on the CT angiography of the head.? 2. No acute intracranial process.? 3. No occlusion or significant stenosis on the CT angiography of the neck. 4. Findings were discussed with Dr. Hicks at 11:30 a.m. on 09/01/2022. Brain MRI was obtained and interpreted by radiology: 1. A few tiny hyperintense white matter foci on the T2 and FLAIR images.? These are nonspecific.? They show no enhancement.? A follow-up MRI in 6 months should be considered for re-evaluation. 2. Otherwise unremarkable MRI of the brain. 3. Findings were discussed with Dr. Hicks at 1:35 p.m. on 09/01/2022. I spoke with Dr. Farfan, linen controller neurosurgeon at [facility], discussed ED presentation course, she reviewed CTA and MRI. She does not feel presentation is consistent with CSF leak and recommends pursuing lumbar puncture to assess for xanthochromia if concern for subarachnoid hemorrhage. Patient provided informed refusal of treatment plan including lumbar puncture and further diagnostics. I had a discussion with the patient about my diagnostic/treatment plan. Patient declines plan and wishes to leave against medical advise. I reiterated my concerns to the patient and explained the risks of leaving prior to completion of workup and treatment. I specifically emphasized the possibility of life-threatening or lifestyle modifying disease that would not be appropriately treated if they leave. Patient verbalized understanding of my concerns and the potential for life threatening or lifestyle modifying disease. Patient has capacity to make informed decision. I again explained my concerns and urged the patient to stay for treatment as outlined. Patient continued to refuse. I then discussed potential less ideal alternatives to diagnostic/treatment plan as outlines and patient refused. I recommended that the patient follow-up with primary care physician ESTHER or return to the Emergency Department at any time for further treatment. Lab Data Lab results reviewed: Yes I reviewed the patient's lab results. Labs: Laboratory Tests Range/Units 09/01/22 09/01/22 10:30 10:30 WBC (4.4-10.8) 10^3/uL 9.50 RBC (4.36-5.78) 10^6/uL 5.55 Hgb (13.5-17.5) g/dL 17.2 Hct (40.0-50.0) % 47.9 MCV (80-95) fL 86 MCH (27.0-33.0) pg 31.0 MCHC (32.0-36.0) % 35.9 RDW (11.8-14.1) % 12.3 Plt Count (130-400) 10^3/uL 206 MPV (8.0-11.0) fL 10.6 Immature Gran % 0.2 Neutrophils % 53.6 Lymphocytes % 36.9 Monocytes % 7.8 Eosinophils % 1.2 Basophils % 0.3 Nucleated RBC % (0.0-0.3) % 0.0 Absolute Neutrophils (1.2-6.7) 10^3/uL 5.09 Absolute Lymphocytes (1.2-3.4) 10^3/uL 3.51 H Absolute Monocytes (0.1-0.8) 10^3/uL 0.74 Absolute Eosinophils (0.0-0.7) 10^3/uL 0.11 Absolute Basophils (0.0-0.2) 10^3/uL 0.03 Sodium (136-145) mmol/L 138 Potassium (3.5-5.1) mmol/L 3.5 Chloride (98-107) mmol/L 103 Carbon Dioxide (21.0-32.0) mmol/L 24.3 Anion Gap (3-11) mmol/L 10.7 BUN (7-18) mg/dL 16 Creatinine (0.70-1.30) mg/dL 1.0 Est GFR (CKD-EPI 2020) (mL/min/1.73m2) 106.45 Glucose (74-106) mg/dL 100 Calcium (8.5-10.1) mg/dL 9.6 Total Bilirubin (0.2-1.0) mg/dL 0.4 AST (15-37) U/L 27 ALT (16-63) U/L 36 Alkaline Phosphatase (46-116) U/L 112 Total Protein (6.4-8.2) g/dL 7.9 Albumin (3.4-5.0) g/dL 4.4 HPI General Mode of arrival: ambulatory. Date/Time Provider Initiated Documentation: 09/01/22 09:12. Limitations to Documentation: no limitations. Information obtained by: patient. HPI Narrative: 27-year-old male presents with chief complaint of headache. Patient has had headache for the past 4 to 5 days. Headache intermittent, comes and goes. Pain seems worse after sneezing. This morning he had an episode of sneezing/coughing and pain returned and was severe. Pain currently 10 out of 10. Pain localized to posterior head and right head. Patient does note he had some blurred vision on the first day of his headache which resolved. Today vision is normal. He denies associated fever. No neck stiffness. No nausea or vomiting. Patient was seen here in the emergency department on 08/29 and 08/30 for headache and had negative diagnostic work-up. Related Data Home Medications Medication Instructions Recorded Confirmed albuterol sulfate 90 mcg/actuation 2 puff inhalation QID PRN 11/16/21 09/14/22 aerosol inhaler (Ventolin HFA) shortness of breath or wheezing #6.7 grams lisdexamfetamine 70 mg capsule 70 mg PO DAILY #28 tab-caps 09/07/22 09/14/22 (Vyvanse) sumatriptan succinate 100 mg tablet See Rx Instructions PO .COMPLEX 09/14/22 09/14/22 #14 tabs topiramate 25 mg tablet (Topamax) 25 mg PO QHS #30 tabs 09/14/22 09/14/22 Previous Rx's Medication Instructions Recorded albuterol sulfate 90 mcg/actuation 2 puff inhalation QID PRN 11/16/21 aerosol inhaler (Ventolin HFA) shortness of breath or wheezing #6.7 grams lisdexamfetamine 70 mg capsule 70 mg PO DAILY #28 tab-caps 09/07/22 (Vyvanse) sumatriptan succinate 100 mg tablet See Rx Instructions PO .COMPLEX 09/14/22 #14 tabs topiramate 25 mg tablet (Topamax) 25 mg PO QHS #30 tabs 09/14/22 Allergies Allergy/AdvReac Type Severity Reaction Status Date / Time cephalexin [Cephalexin] Allergy Intermediate RASH Unverified 09/14/22 14:38 honey Allergy Mild Hives Unverified 09/14/22 14:38 General Stated Complaint: Headache GABRIEL: 3 Review of Systems All systems reviewed & are unremarkable except as noted in HPI and below Constitutional Constitutional: Denies fever(s) Musculoskeletal Musculoskeletal: Denies tingling Neurologic Neurologic: Reports as per HPI, Denies seizure-like activity, Denies sensory deficit, Denies tingling and Denies paresthesias PFSH All Active Problems 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 Anxiety disorder (Acute) Knee pain, right anterior (Acute) Migraine headache (Chronic) Opioid abuse (Acute) Pleuritic chest pain (Acute) Shortness of breath (Acute) Pneumonitis (Acute) Hypoxia (Acute) Alcohol abuse (Chronic) E-cigarette or vaping product use associated lung injury (EVALI) (Acute) Smoker (Acute) Restless leg syndrome (Acute) COVID (Acute) Headache (Acute) Migraine (Chronic) Headache (Acute) Frequent headaches (Acute) Neck pain, chronic (Acute) Medical History Attention deficit hyperactivity disorder, 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) Surgical History Arthroplasty of knee (04/16/12) RIGHT Excision of dorsal wrist ganglion cyst, right (05/10/16) History of arthroscopy of knee History of surgical removal of ganglion cyst (05/10/16) Social History Smoking/Tobacco Use Status: Current every day Tobacco Type: cigarettes Smoking risk assessment performed?: Yes Alcohol Intake: current Alcohol Intake frequency: 3 or more drinks per day Alcohol type: beer Drug use: Daily Substance use type: marijuana Details: 12 pack/day Do you feel safe at home: Yes Do you feel safe in your relationship?: Yes Additional Social history: Pt reports recovering substance use, no longer using heroin, cocaine. Pt reports no therapy, participated at residential rehab 6 months ag0. Exam Const General: cooperative and uncomfortable HENMT Head: normocephalic and atraumatic Mouth: moist mucous membranes Eyes Conjunctivae: normal conjunctivae Sclera: normal sclerae EOM: EOM intact bilaterally Neck Neck: trachea midline and supple Resp Auscultation: clear to auscultation bilaterally, no rales, no rhonchi and no wheezes Cardio Rate: regular rate and not tachycardic Rhythm: regular rhythm GI Palpation: soft, not firm, no guarding, no masses, not rigid and nontender Skin General skin exam: no rashes or lesions noted Neuro General: patient alert, patient awake, patient oriented x3 and tone normal Cranial Nerves: CN's II-XI intact bilaterally Cognition: normal cognition Speech: speech normal Motor: strength 5/5 throughout Sensory Exam: no sensory deficits noted Extrem General: no edema Psych Appearance: grossly normal Mental Status: mental status grossly normal Speech and Movement: speech and movement normal Course Vital Signs Vital signs: Vital Signs Temperature 37 C 09/01/22 09:09 Pulse 67 09/01/22 09:09 Respiratory Rate 22 09/01/22 09:09 Blood Pressure 139/71 09/01/22 09:09 Pulse Oximetry 100 09/01/22 09:09 Temperature 37 C 09/01/22 09:09 Temperature Source Oral 09/01/22 09:09 Pulse 90 09/01/22 10:20 Pulse 61 09/01/22 10:30 Respiratory Rate 13 09/01/22 10:30 Respiratory Effort 09/01/22 09:21 Blood Pressure 127/75 09/01/22 09:45 Blood Pressure Mean 29 09/01/22 10:20 Blood Pressure Position Supine 09/01/22 09:09 Pulse Oximetry 100 09/01/22 10:30 Oxygen Delivery Method Room Air 09/01/22 09:09 Oxygen Flow Rate 0 09/01/22 09:09 Pain Level 10 09/01/22 10:47 Comment 09/01/22 09:09 PAWSS Have you Been Recently Intoxicated or Drunk Within the Last 30 days?: No Have you Ever Experienced Previous Episodes of Alcohol Withdrawal?: No Have you ever Experienced Withdrawal Seizures?: No Have you ever Experienced Delirium Tremens(DT)s?: No Have you ever undergone Alcohol Rehabilitation Treatment (i.e, inpt ot outpatient treatment programs)?: No Have you ever Experienced Blackouts?: No Have you ever Combined Alcohol with other Downers within the last 90 days?: No Have you ever Combined Alcohol with any other Substance of Abuse during the last 90 days?: No Positive Blood Alcohol level on Presentation? [PCS.BAL]: No Evidence of Increased Autonomic Activity (i.e. HR>120, tremor, sweating, agitation, nausea)?: No Result: 0
[2022-09-01 10:55] LABS: Abs Immature Grans 0.02 10^3/uL (0.0-0.06); Absolute Basophil Count 0.03 10^3/uL (0.0-0.2); Absolute Eosinophil Count 0.11 10^3/uL (0.0-0.7); Absolute Lymphocyte Count 3.51 10^3/uL (1.2-3.4); Absolute Monocyte Count 0.74 10^3/uL (0.1-0.8); Absolute Neutrophil Count 5.09 10^3/uL (1.2-6.7); Basophils % 0.3; Eosinophils % 1.2; HCT 47.9 % (40.0-50.0); HGB 17.2 g/dL (13.5-17.5); Immature Grans % 0.2; Lymphocytes % 36.9; MCHC 35.9 % (32.0-36.0); MCV 86 fL (80-95); MPV 10.6 fL (8.0-11.0); Monocytes % 7.8; Neutrophils % 53.6; Platelet Count 206 10^3/uL (130-400); RBC 5.55 10^6/uL (4.36-5.78); RDW 12.3 % (11.8-14.1); RDW-SD 38.7 fL
[2022-09-01 10:56] LABS: ALT 36 U/L (16-63); AST 27 U/L (15-37); Albumin 4.4 g/dL (3.4-5.0); Alkaline Phosphatase 112 U/L (46-116); Anion Gap 10.7 mmol/L (3-11); BUN 16 mg/dL (7-18); Bilirubin, Total 0.4 mg/dL (0.2-1.0); CO2 24.3 mmol/L (21.0-32.0); Calcium 9.6 mg/dL (8.5-10.1); Chloride 103 mmol/L (98-107); Estimated GFR 106.45 (mL/min/1.73m2); Glucose 100 mg/dL (74-106); Potassium 3.5 mmol/L (3.5-5.1); Sodium 138 mmol/L (136-145); Total Protein 7.9 g/dL (6.4-8.2)
[2022-09-01] MEDS: Omnipaque 350 MG/ML 100 ML BTL IJ (11:06)
[2022-09-01] MEDS: Normal Saline - Diluent 50 ML VIAL IJ (11:07)
--- NOTE | 2022-09-01 11:45 | DI.MRI_ITS ---
Exam(s) MR BRAIN WO/W EXAM: MR BRAIN WO/W CLINICAL HISTORY: headache. TECHNIQUE: Multiplanar multisequence MRI of the brain was performed. CONTRAST MATERIAL: IV Contrast: ML of Dotarem contrast administered. COMPARISON: No exams were available for comparison FINDINGS: VENTRICLES AND EXTRA AXIAL SPACES: Normal in size and morphology for the patient's age. There are no extra-axial fluid collections present. HEMORRHAGE: None. CEREBRAL PARENCHYMA: No focus of restricted diffusion to suggest acute infarct. No space-occupying le zion identified. There are few tiny foci of hyperintense signal seen in the white matter on the on t he T2 and FLAIR images. MIDLINE SHIFT: None. BRAINSTEM/CEREBELLUM: Normal. Cerebellar tonsils have a normal appearance and location. CALVARIUM: Normal. ENHANCEMENT: No suspicious enhancement identified. No meningeal enhancement is seen. VISUALIZED PARANASAL SINUSES/MASTOIDS: Clear. OTHER FINDINGS: None. IMPRESSION: 1. A few tiny hyperintense white matter foci on the T2 and FLAIR images. These are nonspecific. The y show no enhancement. A follow-up MRI in 6 months should be considered for re-evaluation. 2. Otherwise unremarkable MRI of the brain. 3. Findings were discussed with Dr. Hicks at 1:35 p.m. on 09/01/2022. DATA REPOSITORY:
[2022-09-01] MEDS: Normal Saline Flush 10 ML SYR IVP (12:20)
[2022-09-01] MEDS: Gadoterate meglumine 20 ML VIAL IVP (12:20)
[2022-09-01] MEDS: Ketorolac 30 MG/ML VIAL IVP (13:45)
[2022-09-01] MEDS: ACETAMINOPHEN 1,000 MG/100 ML BTL 400 MG IVPB (13:49)
--- NOTE | 2022-09-01 14:50 | NUR.NOTE ---
Nursing Note: Pt reports pain much improved. Pt sitting on edge of bed engaged in conversation. Dr Hicks at pt's bedside and reviewed consult placed at [facility]
--- NOTE | 2022-09-01 15:10 | NUR.NOTE ---
Nursing Note: Hand off report given to Umm BAILEY.
== END 2022-09-01 15:27 | disposition left against medical advice (07) ==
PROVIDERS: Emergency Provider Student in an Organized Health Care Education/Training Program; PCP Family Medicine
DX: R51.9 Headache, unspecified (principal); Z53.20 Procedure and treatment not carried out because of patient's decision for unspecified reasons
CPT/HCPCS: 70496; 70498; 70553; 80053; 93005; 96374; 96375; 99285; 85025; 93010; 99284; J0131; J0780; J1200; J1885; J3490

== ENCOUNTER 2022-09-04 17:33 | Emergency (ER) | payer MEDICAID, SELFPAY ==
[2022-09-04 17:34] VITALS: BP 154/109; PULSE 78; RESP 18; TEMP 36.8; O2SAT 97
--- NOTE | 2022-09-04 18:11 | ED.GENADUL_ITS ---
Discharge Plan Disposition Patient Disposition: Home Condition: Stable Discharge Details Clinical Impression: Frequent headaches Primary Care Provider: [facility] ED Provider: Mariama Stevenson Home Meds and New Rx's Prescriptions: Continued albuterol sulfate [Ventolin HFA] 90 mcg/actuation HFA aerosol inhaler 2 puff inhalation QID PRN (Reason: shortness of breath or wheezing) Qty: 6.7 3RF No Action Vyvanse 70 mg capsule 70 mg PO DAILY MDD 1 Qty: 28 0RF topiramate [Topamax] 25 mg tablet 25 mg PO QHS Qty: 30 2RF sumatriptan succinate 100 mg tablet See Rx Instructions PO .COMPLEX Qty: 14 3RF Rx Instructions: take 1 tab at onset of headache; if no relief, may repeat 1 tab after at least 2 hrs; max = 2 tabs/24 hrs PO Discharge Instructions Instructions: Cluster Headache (ED), General Headache (ED) Additional Instructions: Your repeat imaging was reassuring today. Your lumbar puncture did not show evidence of infection or blood. The pressure of your CSF was normal. Your description of your recurrent headaches, sweating and risk factors make me most concerned for cluster headaches. I have referred you to neurology but I would like for you to follow up with your primary care as soon as possible as well. Please call tomorrow to schedule follow up. You were given dose of steroids here today, the rest have been sent to your pharmacy. As we discussed, there is another medicine, Verapamil, that is also used for elevated blood pressure, that can help with this type of headache. As we discussed, we will hold off on this medication and see how you do with the steroids alone. If this is not sufficient and you continue to have the break through headaches, please begin the verapamil and take as prescribed. This may make you lightheaded so please be careful when you begin this medication. Please follow dosing instructions carefully on the steroids. If you develop fevers/chills, increased pain or other new/worsening symptoms please seek care urgently once again. Referrals: [facility] MD [Primary Care Provider] - Discharge Data Discharge Date/Time-TO BE ENTERED AT DEPARTURE: 09/05/22 06:17 Medical Decision Making Patient is a pleasant 27-year-old male presenting today for recurrent headache. Patient's been here now 4 times for this. When he was here last, it was recomme nded that he had a lumbar puncture as there was question for subarachnoid hemorrhage that was not able to be noted on imaging. However, patient reports he became very anxious and wanted to leave and ultimately left AMA. He states that since leaving here 1/2 days ago, his headaches have persisted, brought on by exertion or increased pressure. He reports that this particularly bad when he sneezes or coughs. States that he is having difficulty having bowel movements because straining to have a bowel movement increases his intracranial pressure and causes increased pain. He has not had any visual change. States that the pain continues to be along the right side of his head starting behind the eye and then radiating up over the right side of his head. Denies any recent trauma. No fevers or chills. States that he does begin to sweat when he is at maximal pain. States that he is no longer able to care for his children because of the exertion required to complete this job and that this increases his headache. He has not been taking anything at home as the previous clinician recommended that he hold off on any further ibuprofen given his significant dosing at home previously. States that he does have a familial history of without cluster headaches. On exam, patient appears nontoxic. Resting comfortably. States that the headache is in the low currently. Neurologically intact. No sinus pain. No rash. No nuchal rigidity. As there was concern for possible ICH, will obtain CT. If this is positive, no need for LP ashad been recommended last time after the normal CT. If this is negative, will discuss LP. CT reviewed by radiologist, no acute bleed or abnormality noted. Labs reviewed, no signficant abnormalities. WBC slightly elevated, this may be associated with pain. No thrombocytopenia. Patient, Dr. Smith and I discussed risks/benefits as well as expected procedural steps involved in LP. Patient voices understanding and wishes to proceed. LP was preformed using standard, sterile technique. After Dr. Smith adn myself attempted, we called anesthesia. Patient was very anxious around the procedure, this is what had him hold off last time. Ativan was given. Anesthesia was successful on her first attempt at LP. CSF without evidence to suggest infection, negative xanthochromia. He had normal opening pressure. Reevaluated the patient. With his family history as well as his description of this being a suicidal headache has been concern for potential cluster headaches which would fit the description that he has given historically. The pain is unilateral, supraorbital and temporal and comes in these significant waves of pain. He is also been having sweating when he has the episodes of discomfort and has been very restless associated with the pain. Given how this discomfort is affecting his ADLs, feel that treatment is appropriate at this time. Per up-to-date, patient would qualify for diagnosis of cluster headache, fits the typical epidemiologic risk factors. Patient is a smoker does have family history. He has had an MRI, LP and I feel that other emergent causes of his continued headache has been ruled out. When I reevaluated the patient, he was sleeping and not actively having headache. Discussed with the patient the possibility of cluster BALL. We discussed at length. We discussed treatment options. Will begin on steroids. Will also give a watch and wait prescription for Verapamil. We discussed possible SE of both. He has been referred to neurology. Strict return precautions were given, including around his BALL but also the LP. All of his questions and concerns were addressed, he is in agreement with this plan. HPI General Date/Time Provider Initiated Documentation: 09/04/22 17:42 . Limitations to Documentation: no limitations . Information obtained by: patient, RN notes reviewed and old records reviewed . History of Present Illness 27 year old M presents to the emergency department with the chief complaint of Headache, described as severe and similar to prior episodes (has had several episodes recently, has been here several times for the same), with intensity rated at 8. Quality is described as stabbing, and is localized to the head and face (behind eye). Patient reports no radiation. Patient started experiencing this week(s) and it has been intermittent. No relieving factors improve symptom(s), Movement worsens symptoms (particularly sneezing, bending) . Patient notes headaches, loss of appetite and nausea/vomiting; denies confusion, chest pain, diaphoresis, fever/chills, rash, seizure and weakness. Patient did receive the following treatments prior to arrival, NSAID Related Data Home Medications Medication Instructions Recorded Confirmed albuterol sulfate 90 mcg/actuation 2 puff inhalation QID PRN 11/16/21 09/14/22 aerosol inhaler (Ventolin HFA) shortness of breath or wheezing #6.7 grams lisdexamfetamine 70 mg capsule 70 mg PO DAILY #28 tab-caps 09/07/22 09/14/22 (Vyvanse) sumatriptan succinate 100 mg tablet See Rx Instructions PO .COMPLEX 09/14/22 09/14/22 #14 tabs topiramate 25 mg tablet (Topamax) 25 mg PO QHS #30 tabs 09/14/22 09/14/22 Previous Rx's Medication Instructions Recorded albuterol sulfate 90 mcg/actuation 2 puff inhalation QID PRN 11/16/21 aerosol inhaler (Ventolin HFA) shortness of breath or wheezing #6.7 grams lisdexamfetamine 70 mg capsule 70 mg PO DAILY #28 tab-caps 09/07/22 (Vyvanse) sumatriptan succinate 100 mg tablet See Rx Instructions PO .COMPLEX 09/14/22 #14 tabs topiramate 25 mg tablet (Topamax) 25 mg PO QHS #30 tabs 09/14/22 Allergies Allergy/AdvReac Type Severity Reaction Status Date / Time cephalexin [Cephalexin] Allergy Intermediate RASH Unverified 09/14/22 14:38 honey Allergy Mild Hives Unverified 09/14/22 14:38 General Stated Complaint: Headache GABRIEL: 3 Review of Systems Constitutional Constitutional: Reports as per HPI, Reports fatigue, Denies fever(s), Reports headache(s) and Denies weakness Eyes Eyes: Reports as per HPI, Denies blurry vision, Denies change in vision and Reports photophobia ENT Ears, Nose, Mouth, and Throat: Denies vertigo, Reports headache(s) and Denies neck pain Cardiovascular Cardiovascular: Reports as per HPI, Denies chest pain, Denies lightheadedness, Denies radiating jaw, neck or arm pain and Denies dyspnea Respiratory Respiratory: Reports as per HPI, Denies cough and Denies dyspnea Gastrointestinal Gastrointestinal: Reports as per HPI, Denies abdominal pain, Denies change in bowel habits, Denies nausea and Denies vomiting Genitourinary Genitourinary: Reports system reviewed and no additional complaints, except as documented (denies change in urinary habits) Musculoskeletal Musculoskeletal: Reports as per HPI, Denies back pain, Denies myalgias, Denies muscle cramps, Denies neck pain and Denies numbness Integumentary/Breasts Skin/Breast: Reports as per HPI and Denies rash Neurologic Neurologic: Reports as per HPI, Denies abnormal movements, Denies abnormal speech, Denies behavioral changes, Denies confusion, Denies vertigo, Reports headache(s), Denies localized weakness, Denies numbness, Denies sensory deficit and Denies weakness Psychiatric Psychiatric: Denies behavioral changes and Denies confusion Endocrine Endocrine: Reports fatigue PFSH All Active Problems 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 Anxiety disorder (Acute) Knee pain, right anterior (Acute) Migraine headache (Chronic) Opioid abuse (Acute) Pleuritic chest pain (Acute) Shortness of breath (Acute) Pneumonitis (Acute) Hypoxia (Acute) Alcohol abuse (Chronic) E-cigarette or vaping product use associated lung injury (EVALI) (Acute) Smoker (Acute) Restless leg syndrome (Acute) COVID (Acute) Headache (Acute) Migraine (Chronic) Headache (Acute) Frequent headaches (Acute) Neck pain, chronic (Acute) Medical History Attention deficit hyperactivity disorder, 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) Surgical History Arthroplasty of knee (04/16/12) RIGHT Excision of dorsal wrist ganglion cyst, right (05/10/16) History of arthroscopy of knee History of surgical removal of ganglion cyst (05/10/16) Social History Smoking/Tobacco Use Status: Current every day Tobacco Type: cigarettes Smoking risk assessment performed?: Yes Alcohol Intake: current Alcohol Intake frequency: 3 or more drinks per day Alcohol type: beer Drug use: Daily Substance use type: marijuana Details: 12 pack/day Do you feel safe at home: Yes Do you feel safe in your relationship?: Yes Additional Social history: Pt reports recovering substance use, no longer using heroin, cocaine. Pt reports no therapy, participated at residential rehab 6 months ag0. Exam Const General: cooperative, healthy appearing, comfortable (states BALL is not severe currently), no acute distress, well developed and well groomed Nutritional Appearance: average body habitus and well nourished Orientation: alert, awake and oriented x3 HENMT Head: normal to inspection, no palpable skull fracture, normocephalic and atraumatic Ears: hearing grossly normal bilaterally, external ears normal and TM's normal bilaterally General nose exam: external nose normal Mouth: oral mucosae normal and moist mucous membranes Throat: posterior oropharynx normal Eyes General: appearance normal, both eyes and all related structures Alignment and Position: alignment normal Periorbital: periorbital findings normal Eyelids: eyelids normal Sclera: sclerae normal Cornea: corneas normal Pupils: PERRL EOM: EOM intact bilaterally Neck Neck: normal visual inspection, full ROM, no lymphadenopathy and no meningeal signs Resp Effort & Inspection: normal respiratory effort, able to speak in complete sentences and no respiratory distress Auscultation: clear to auscultation bilaterally, no rales, no rhonchi and no wheezes Cardio Rate: regular rate Rhythm: regular rhythm Heart Sounds: S1 normal and S2 normal GI Inspection: normal to inspection and non-distended Palpation: soft, no hepatosplenomegaly, not firm, no guarding, not rigid and nontender Percussion: normal to percussion Auscultation: normal bowel sounds Back/Spine/Pelvis Cervical Spine: normal cervical lordosis and cervical ROM normal Skin General skin exam: no rashes or lesions noted Neuro General: patient alert, patient awake and patient oriented x3 Cranial Nerves: CN's II-XI intact bilaterally Cognition: normal cognition Speech: speech normal Gait: normal gait Motor: muscle tone normal throughout, strength 5/5 throughout, no pronator drift, no movement abnormalities noted and no fasciculations Sensory Exam: no sensory deficits noted Coordination: [id number]-[id number] test normal, [id number]-jp-[id number] test normal, tandem gait normal and rapid alternating movement UE normal Extrem General: normal to inspection, capillary refill normal, no pedal edema and no calf tenderness Psych Appearance: grossly normal and well kempt Mental Status: mental status grossly normal Speech and Movement: speech and movement normal Course Vital Signs Vital signs: Vital Signs Temperature 36.8 C 09/04/22 17:34 Pulse 78 09/04/22 17:34 Respiratory Rate 18 09/04/22 17:34 Blood Pressure 154/109 H 09/04/22 17:34 Pulse Oximetry 97 09/04/22 17:34 Temperature 36.8 C 09/04/22 17:34 Pulse 78 09/04/22 17:34 Respiratory Rate 18 09/04/22 17:34 Respiratory Effort Non-Labored 09/04/22 17:37 Blood Pressure 154/109 H 09/04/22 17:34 Pulse Oximetry 97 09/04/22 17:34 Oxygen Delivery Method Room Air 09/04/22 17:34 Oxygen Flow Rate 0 09/04/22 17:34 Procedures Lumbar Puncture Time Out Performed: Yes Patient Position: left lateral decubitus Skin Prep: 0.5% Chlorhexidine/Alcohol Local Anesthetic: Lidocaine 1% and with Epi Amount of anesthesia used (mL): 10 Spinal Needle Gauge: 22G Interspace Used: L4-L5 Complications: Need to have other Practitoner Attempt PAWSS Have you Been Recently Intoxicated or Drunk Within the Last 30 days?: No Have you Ever Experienced Previous Episodes of Alcohol Withdrawal?: No Have you ever Experienced Withdrawal Seizures?: No Have you ever Experienced Delirium Tremens(DT)s?: No Have you ever undergone Alcohol Rehabilitation Treatment (i.e, inpt ot outpatient treatment programs)?: No Have you ever Experienced Blackouts?: No Have you ever Combined Alcohol with other Downers within the last 90 days?: No Have you ever Combined Alcohol with any other Substance of Abuse during the last 90 days?: Yes Positive Blood Alcohol level on Presentation? [PCS.BAL]: No Evidence of Increased Autonomic Activity (i.e. HR>120, tremor, sweating, agitation, nausea)?: No Result: 2
--- NOTE | 2022-09-04 18:30 | DI.CT_ITS ---
Exam(s) CT HEAD WO EXAM: CT HEAD WO CLINICAL HISTORY: continued BALL, exertional, ? bleed. TECHNIQUE: Imaging Protocol: Axial computed tomography images with coronal and sagittal reformatted images were created and reviewed COMPARISON: MR MR BRAIN WO/W from 09/01/[address] BRAIN NECK CTA from 09/01/2022 FINDINGS: Ventricles and Extra axial spaces: Normal in size and morphology for the patient's age. Hemorrhage: None. Cerebral parenchyma: Normal. Midline shift: None. Brainstem/Cerebellum: Normal. Calvarium: Normal. Visualized Paranasal sinuses/Mastoids: Clear. Soft Tissues: Unremarkable. IMPRESSION: No acute intracranial process. RADIATION DOSE DELIVERED: 810.85mGy.cm Total DLP DATA REPOSITORY: All CT scans at this facility are submitted to the National Radiology Data Registry (NRDR) Dose Index Registry (DIR) with the [employer] ([employer]). RADIATION OPTIMIZATION: All CT scans at this facility use at least one of these dose optimization te chniques: automated exposure control; mA and/or kV adjustment per patient size (includes targeted exa ms where dose is matched to clinical indication); or iterative reconstruction.
--- NOTE | 2022-09-04 19:19 | DI.VRAD_ITS ---
PROCEDURE INFORMATION: Exam: CT Head Without Contrast Exam date and time: 09/04/2022 7:07 PM Age: 27 years old Clinical indication: Other: Continued BALL, exertional, ? bleed TECHNIQUE: Imaging protocol: Computed tomography of the head without contrast. Radiation optimization: All CT scans at this facility use at least one of these dose optimization techniques: automated exposure control; mA and/or kV adjustment per patient size (includes targeted exams where dose is matched to clinical indication); or iterative reconstruction. COMPARISON: MR BRAIN WO/W 09/01/2022 12:13 PM FINDINGS: Brain: Normal. No hemorrhage. Unremarkable white matter. No mass effect. Cerebral ventricles: No ventriculomegaly. Paranasal sinuses: Visualized sinuses are unremarkable. No fluid levels. Mastoid air cells: Visualized mastoid air cells are well aerated. Bones/joints: Unremarkable. No acute fracture. Soft tissues: Unremarkable. IMPRESSION: No acute intracranial abnormality. Dictated and Authenticated by: Magdaleno Hilario MD. Ordering:EDIN Leslie MD
[2022-09-04] MEDS: LORazepam 2 MG/ML VIAL 0.5 MG IVP (20:05)
[2022-09-04] MEDS: Normal Saline 1,000 ML 1000 ML IV (20:06)
[2022-09-04 20:29] LABS: ALT 28 U/L (16-63); AST 19 U/L (15-37); Albumin 4.4 g/dL (3.4-5.0); Alkaline Phosphatase 104 U/L (46-116); Anion Gap 9.8 mmol/L (3-11); BUN 15 mg/dL (7-18); Bilirubin, Total 0.3 mg/dL (0.2-1.0); CO2 28.2 mmol/L (21.0-32.0); CREATININE 1.1 mg/dL (0.70-1.30); Calcium 10.1 mg/dL (8.5-10.1); Chloride 104 mmol/L (98-107); Estimated GFR 94.95 (mL/min/1.73m2); Glucose 98 mg/dL (74-106); Potassium 4.1 mmol/L (3.5-5.1); Sodium 142 mmol/L (136-145); Total Protein 7.6 g/dL (6.4-8.2)
[2022-09-04 20:30] VITALS: BP 145/89; PULSE 79; RESP 22; O2SAT 98
[2022-09-04 20:43] LABS: Abs Immature Grans 0.04 10^3/uL (0.0-0.06); Absolute Basophil Count 0.03 10^3/uL (0.0-0.2); Absolute Lymphocyte Count 4.28 10^3/uL (1.2-3.4); Absolute Monocyte Count 0.63 10^3/uL (0.1-0.8); Absolute Neutrophil Count 5.92 10^3/uL (1.2-6.7); Basophils % 0.3; Eosinophils % 1.4; HCT 44.9 % (40.0-50.0); Immature Grans % 0.4; Lymphocytes % 38.7; MCH 31.1 pg (27.0-33.0); MCHC 35.6 % (32.0-36.0); MCV 87 fL (80-95); MPV 10.4 fL (8.0-11.0); Monocytes % 5.7; Neutrophils % 53.5; Platelet Count 237 10^3/uL (130-400); RBC 5.14 10^6/uL (4.36-5.78); RDW 12.4 % (11.8-14.1); WBC 11.06 10^3/uL (4.4-10.8)
[2022-09-04] MEDS: LORazepam 2 MG/ML VIAL 1.5 MG IVP (20:45)
[2022-09-04 20:46] LABS: Absolute Eosinophil Count 0.15 10^3/uL (0.0-0.7)
[2022-09-04 21:15] VITALS: BP 148/92; PULSE 84; RESP 22; O2SAT 97
[2022-09-04] MEDS: LORazepam 2 MG/ML VIAL (21:36)
[2022-09-04] MEDS: Lidocaine 2% Pres-Free W/EPI 1/200,000 20 ML VIAL (21:37)
[2022-09-04] MEDS: fentaNYL 100 MCG/2 ML VIAL (21:59)
[2022-09-04 22:05] VITALS: BP 134/88; PULSE 76; RESP 19; O2SAT 98
[2022-09-04 22:27] LABS: Glucose (CSF) 63 mg/dL (40-70); Total Protein (CSF) 35 mg/dL (15-45)
[2022-09-04 22:30] VITALS: BP 129/82; PULSE 78; RESP 16; O2SAT 98
--- NOTE | 2022-09-04 22:50 | W.ANESPROC ---
Lumbar Puncture Date Performed: 09/04/22 Procedure Time: 22:00 Requesting Provider: Mariama Stevenson Procedure Location: Emergency Department Standard Monitors Applied: See EMR for corresponding vital signs Patient Position: Right Lateral Decubitus Timeout Performed: Yes Sedation Given (Indicate Dose Given): Directed by Requesting Provider Patient Mental Status: Awake Sterility: Hand Hygiene, Surgical Cap, Surgical Mask, Sterile Gloves, Sterile Drape/Sheet and Chlorhexidine Placement Site: L3-L4 Interspace Spinal Needle Type: Quincke 22 Gauge Needle Length: 3.5 Inch Lumbar Puncture Procedure: Site Prepped, Sterile Drape Placed, 1% Lidocaine to skin and subcutaneous tissue with 25G needle, Spinal Needle Placed, Negative Heme, Positive CSF Flow, CSF Specimen placed into Tubes in Sequential Order and Specimen Labeled, Sent to Lab Ultrasound: Not Used Opening CSF Pressure (cmH2O): 14 Paresthesia: None Number of Previous Attempts by Other Providers: 4 Number of Attempts (See previous attempts in note section): 1 Procedure Tolerated: No Complications Procedure Outcome: Successful Performed By: Oralia Toure
[2022-09-04 22:56] LABS: Tube # 3
[2022-09-04 22:57] LABS: Clarity Clear; Differential CSF: Performed; Lymphocytes CSF 0 % (40-80); Monocyte/Macrophage CSF 0 % (15-45); Neutrophils CSF 0 % (0-6); Other Cells CSF 0 % (0); RBC 0 /mm3 (0-5); WBC 0 /uL (0-5); Xanthochromia Absent
[2022-09-04 23:30] VITALS: BP 122/74; PULSE 78; RESP 16; O2SAT 98
[2022-09-05] MEDS: predniSONE 20 MG TAB 60 MG PO (01:00)
[2022-09-05 01:05] VITALS: BP 123/75; PULSE 76; RESP 15; O2SAT 98
--- NOTE | 2022-09-09 08:41 | NUR.NOTE ---
Nursing Note: Accessed chart to look up whether or not on antibiotic.
== END 2022-09-05 06:17 | disposition home or self-care (01) ==
PROVIDERS: Emergency Provider Physician Assistant; PCP Family Medicine
DX: R51.9 Headache, unspecified (principal)
CPT/HCPCS: 62270; 80053; 82945; 86803; 87340; 89050; 89051; 96361; 96374; 96376; 99284; 70450; 84157; 85025; 87070; 87205; J2060; J3010; J7512

== ENCOUNTER 2022-10-05 16:32 | Outpatient (REF) | payer MEDICAID, SELFPAY ==
[2022-10-12 09:59] LABS: Amphetamine 218 ng/mL (Cutoff: 25); Amphetamines Interpretation Positive.; MDA (Ecstasy Metabolite) Negative ng/mL (Cutoff: 25); MDMA (Ecstasy) Negative ng/mL (Cutoff: 25); Methamphetamine Negative ng/mL (Cutoff: 25); Phentermine Negative ng/mL (Cutoff: 25); Pseudoephedrine/Ephedrine Negative ng/mL (Cutoff: 25)
== END 2022-10-05 16:33 | disposition home or self-care (01) ==
LOC: LBN 16:32
PROVIDERS: PCP Family Medicine; Visit Provider Family Medicine
DX: F90.0 Attention-deficit hyperactivity disorder, predominantly inattentive type (principal); F11.10 Opioid abuse, uncomplicated
CPT/HCPCS: 80324

== ENCOUNTER 2023-04-10 14:44 | Outpatient (CLI) | payer MEDICAID, SELFPAY ==
--- NOTE | 2023-04-10 14:15 | DI.RAD_ITS ---
Exam(s) XR KNEE RT 3V AP,LAT,BRICE EXAM: XR KNEE RT 3V AP,LAT,BRICE CLINICAL HISTORY: RIGHT KNEE PAIN. TECHNIQUE: 2D digital imaging was performed of the right knee. Three views obtained. Merchant, AP an d lateral views were obtained. COMPARISON: CR RIGHT KNEE 3 VIEWS from 03/13/2012 CR CHEST 2 VIEWS PA,LAT from 04/17/2016 FINDINGS: BONES: No acute fracture is present. No bony destructive lesion is seen. JOINTS: The knee is normally aligned. There are degenerative changes seen in the knee characterized b y joint space narrowing and periarticular spurring. The findings are most marked in the patellofemor al joint. No joint effusion. SOFT TISSUE: Normal. IMPRESSION: Mild degenerative changes of the knee. DATA REPOSITORY: RADIATION DOSE DELIVERED:
== END 2023-04-10 14:45 | disposition home or self-care (01) ==
LOC: DIORS 14:44
PROVIDERS: PCP Family Medicine; Visit Provider Student in an Organized Health Care Education/Training Program
DX: M17.11 Unilateral primary osteoarthritis, right knee (principal)
CPT/HCPCS: 73562

== ENCOUNTER → 2023-05-07 02:11 | Outpatient (CLI) | payer MEDICAID, SELFPAY ==
--- NOTE | 2023-05-07 10:45 | DI.MRI_ITS ---
Exam(s) MR LOWER JOINT RT WO EXAM: MR LOWER JOINT RT WO CLINICAL HISTORY: r knee pain,internal derangement, m23.91,m25.561 TECHNIQUE: Multiplanar multisequence MRI of the knee was performed. COMPARISON: MR MRI R LOWER JOINT WO CONT from 04/01/2012 CR XR KNEE RT 3V AP,LAT,BRICE from 04/10/2023 FINDINGS: EFFUSION: There is a moderate size knee joint effusion. No obvious loose intra-articular bodies. Th ere is no Costa cyst in the popliteal fossa. MARROW:There is no evidence of fracture, bone contusion, nor osteochondral defects.. There are no si gnificant osseous lesions. PATELLOFEMORAL COMPARTMENT: The quadriceps tendon is intact. The patellar ligament is intact. Mild increased signal noted in the superior lateral aspect of the anterior intra-articular Hoffa fat pad. There is significant thinning of the retropatellar cartilage over the lateral facet and mild subartic ular bone edema in the posterior aspect of the patella at this level. There is also slight lateral d eviation of the patella within the intercondylar notch. There is preservation of retropatellar carti luke thickness over the medial facet. There is no intraosseous signal to suggest recent patellar dis location and there are no patellar retinacular tears. CRUCIATE LIGAMENTS: The anterior cruciate ligament is intact.The posterior cruciate ligament is intac t. MEDIAL COMPARTMENT/MEDIAL MENISCUS: There are no tears of the medial meniscus evident.. There is no significant cartilage thinning over the main weight-bearing surface of the medial femoral condyle. Also no osteochondral defects. No subarticular marrow edema. MEDIAL COLLATERAL LIGAMENT: Intact LATERAL COMPARTMENT/LATERAL MENISCUS: There is no evidence of lateral meniscal tear.Although there ar e no prominent chondral defects over the main weight-bearing surface of the lateral condyle, there is significant focal cartilage and subchondral intraosseous signal abnormalityin the anterior aspect of the lateral femoral condyle, this immediately adjacent to the lateral aspect of the patella. ILIOTIBIAL BAND: Intact LATERAL COLLATERAL LIGAMENT COMPLEX: The fibular collateral ligament is intact. The biceps femoris t endon is intact.Popliteus muscle and tendon are intact. IMPRESSION: 1. The main findings here are in the lateral aspect of the patellofemoral compartment where there is significant advanced thinning of the retropatellar cartilage over the lateral facet with mild subarti cular edema in the patella as well as some signal abnormality and intraosseous edema in the correspon ding anterior aspect of the lateral femoral condyle. There is also an element of lateral tracking of the patella within the intercondylar notch. There is no intraosseous signal to suggest recent mcdonald lar dislocation. Also noted is some mild increased signal within the anterosuperior aspect of the Ho ffa fat pad. 2. There are no meniscal tears nor cruciate ligament tears. 3. There are no collateral ligament tears. 4. There is a moderate size joint effusion. There are no loose intra-articular bodies evident. No o steochondral defects evident. DATA REPOSITORY:
== END ==
PROVIDERS: PCP Family Medicine; Visit Provider Student in an Organized Health Care Education/Training Program
DX: M24.19 Other articular cartilage disorders, other specified site (principal); M25.461 Effusion, right knee
CPT/HCPCS: 73721

== ENCOUNTER 2023-07-03 11:31 | Emergency (ER) | payer MEDICAID, SELFPAY ==
[2023-07-03 11:38] VITALS: BP 121/83; PULSE 113; RESP 15; TEMP 36.8; O2SAT 97
--- NOTE | 2023-07-03 11:46 | ED.GENADUL_ITS ---
Discharge Plan Disposition Patient Disposition: Home Discharge Details Clinical Impression: Cellulitis Primary Care Provider: West Ocampo ED Provider: Rodger Adames Home Meds and New Rx's Prescriptions: New doxycycline hyclate 100 mg tablet,delayed release (DR/EC) 100 mg PO BID 14 Days Qty: 28 0RF mupirocin 2 % ointment 1 applic topical TID Qty: 15 0RF Continued topiramate [Topamax] 50 mg tablet 50 mg PO DAILY Qty: 30 2RF sumatriptan succinate 100 mg tablet See Rx Instructions PO .COMPLEX Qty: 14 3RF Rx Instructions: take 1 tab at onset of headache; if no relief, may repeat 1 tab after at least 2 hrs; max = 2 tabs/24 hrs PO albuterol sulfate [Ventolin HFA] 90 mcg/actuation HFA aerosol inhaler 2 puff inhalation QID PRN (Reason: shortness of breath or wheezing) Qty: 6.7 3RF lisdexamfetamine [Vyvanse] 70 mg capsule 70 mg PO DAILY MDD 1 Qty: 28 0RF Hold Instructions: not available lisdexamfetamine [Vyvanse] 30 mg capsule 30 mg PO DAILY MDD 1 cap Qty: 28 0RF lisdexamfetamine [Vyvanse] 40 mg capsule 40 mg PO DAILY MDD 1 Qty: 28 0RF Rx Instructions: take with a 30 mg to equal 70mg/day Discharge Instructions Instructions: Mupirocin (On the skin), Doxycycline (By mouth), Cellulitis (ED) Additional Instructions: You were seen in the emergency department for your cellulitis or soft tissue infections around your injection sites of IV drug use. It is likely your substance xylazine, we discussed warning signs that you need to look out for though your redness is mild and not spreading at this time and has been significant amount of time since her injection. As we discussed please perform hot compresses to the area with a clean soapy washcloth daily, apply the topical mupirocin I have prescribed sent to [facility] in [place] 3 times per day, let the wound air out in the evening. Take the prescribed doxycycline twice per day for 14 days. Take Tylenol and ibuprofen for pain. If you have any worsening with justice redness, feelings of crunchiness under the skin please follow-up immediately with wound care or return to ED, especially for fever/nausea/vomiting. Referrals: West Ocampo MD [Primary Care Provider] - Discharge Data Discharge Date/Time-TO BE ENTERED AT DEPARTURE: 07/03/23 12:15 Medical Decision Making This dictation utilizes [id number] dictation software and may contain unedited grammatical errors. 27 y/o M presents to ED today with a chief complaint of IVDU with soft tissue infection of the left wrist, resolving scabbed over lesions to the left thigh, injection 2 weeks ago. Onset and characteristics include throbbing, denies fever/nausea/vomiting, no purulent drainage or large erythematous swellings. Patients' medical history: Opioid abuse. Family and social history: IV drug use, tobacco use. Pertinent exam findings / vital signs include mild erythema to the left wrist at injection sites without purulent drainage, no fluctuance or justice induration, consistent with cellulitis, scabbed over lesions without erythema to the left thigh, no subcutaneous emphysema. Differential / pathologies of concern include cellulitis, abscess, IVDU. Diagnostic studies of: -none, patient prefers antibiotic trial. Interventions of: -Rx of PO doxy, Rx of topical mupirocin. ED Course: Patient presents with a mild cellulitis to his left wrist and well-healed scabbed over lesions to his left thigh, I am starting empiric MRSA coverage with doxycycline as well as topical mupirocin and recommend he follow-up with urgent care for any progression of his wounds. Strict return criteria for any multisystem complaints or fever or spreading redness despite treatment. Findings not consistent with necrotizing fasciitis, no subcutaneous emphysema, not consistent with abscess. Disposition of Cellulitis. Patient verbalized understanding of the plan and return to ED criteria and engaged in shared decision making. Medical Records Medical records reviewed: Yes I reviewed the patient's medical records. HPI General Date/Time Provider Initiated Documentation: 07/03/23 11:46 . HPI Narrative: 27 year-old male presents to ED today by POV/ambulating with a chief complaint of injection site infections from street drug use that likely contained Xylaxine, with onset 2 weeks ago, appears to be resolving with scabbing. Quality described as throbbing, burning, no radiation to fever, nausea/vomiting, purulent drainage. Localized to the L wrist and posterior L thigh (more mild to leg). Severity is described as mild. Palliating factors include nothing specific attempted. Provoking factors include IVDU. Events leading up to the incident/Associated Symptoms: Patient states he did not know that substance was in his drugs, states he will cessate. Patient not anticoagulated. Related Data Home Medications Medication Instructions Recorded Confirmed albuterol sulfate 90 mcg/actuation 2 puff inhalation QID PRN 11/16/21 07/03/23 aerosol inhaler (Ventolin HFA) shortness of breath or wheezing #6.7 grams lisdexamfetamine 70 mg capsule 70 mg PO DAILY #28 tab-caps 03/15/23 07/03/23 (Vyvanse) sumatriptan succinate 100 mg tablet See Rx Instructions PO .COMPLEX 03/28/23 07/03/23 #14 tabs topiramate 50 mg tablet (Topamax) 50 mg PO DAILY #30 tabs 03/28/23 07/03/23 lisdexamfetamine 30 mg capsule 30 mg PO DAILY #28 caps 05/01/23 07/03/23 (Vyvanse) lisdexamfetamine 40 mg capsule 40 mg PO DAILY #28 caps 05/01/23 07/03/23 (Vyvanse) doxycycline hyclate 100 mg 100 mg PO BID cellulitis 14 days 07/03/23 07/03/23 tablet,delayed release #28 tabs mupirocin 2 % topical ointment 1 applic topical TID wound 07/03/23 07/03/23 infection #15 grams Previous Rx's Medication Instructions Recorded albuterol sulfate 90 mcg/actuation 2 puff inhalation QID PRN 11/16/21 aerosol inhaler (Ventolin HFA) shortness of breath or wheezing #6.7 grams lisdexamfetamine 70 mg capsule 70 mg PO DAILY #28 tab-caps 03/15/23 (Vyvanse) sumatriptan succinate 100 mg tablet See Rx Instructions PO .COMPLEX 03/28/23 #14 tabs topiramate 50 mg tablet (Topamax) 50 mg PO DAILY #30 tabs 03/28/23 lisdexamfetamine 30 mg capsule 30 mg PO DAILY #28 caps 05/01/23 (Vyvanse) lisdexamfetamine 40 mg capsule 40 mg PO DAILY #28 caps 05/01/23 (Vyvanse) doxycycline hyclate 100 mg 100 mg PO BID cellulitis 14 days 07/03/23 tablet,delayed release #28 tabs mupirocin 2 % topical ointment 1 applic topical TID wound 07/03/23 infection #15 grams Allergies Allergy/AdvReac Type Severity Reaction Status Date / Time cephalexin [Cephalexin] Allergy Intermediate RASH Unverified 07/03/23 11:43 honey Allergy Mild Hives Unverified 07/03/23 11:43 General Stated Complaint: Cellulitis GABRIEL: 3 Review of Systems All systems reviewed & are unremarkable except as noted in HPI and below PFSH All Active Problems (Updated 07/03/23 @ 12:04 by HOMAR Dumont) Cellulitis (Acute) 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 Anxiety disorder (Acute) Knee pain, right anterior (Acute ~10/05/22) Migraine headache (Chronic) Opioid abuse (Acute) Pleuritic chest pain (Acute) Shortness of breath (Acute) Pneumonitis (Acute) Hypoxia (Acute) Alcohol abuse (Chronic) E-cigarette or vaping product use associated lung injury (EVALI) (Acute) Smoker (Acute) Restless leg syndrome (Acute) COVID (Acute) Neck pain, chronic (Acute) Medical History Attention deficit hyperactivity disorder, 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) Surgical History Arthroplasty of knee (04/16/12) RIGHT Excision of dorsal wrist ganglion cyst, right (05/10/16) History of arthroscopy of knee History of surgical removal of ganglion cyst (05/10/16) Social History Smoking/Tobacco Use Status: Current every day Tobacco Type: cigarettes Smoking risk assessment performed?: Yes Alcohol Intake: current Alcohol Intake frequency: 3 or more drinks per day Alcohol type: beer Drug use: Daily Substance use type: marijuana Details: 12 pack/day Housing: house Current gender identity: male Do you feel safe at home: Yes Do you feel safe in your relationship?: Yes Additional Social history: Pt reports recovering substance use, no longer using heroin, cocaine. Pt reports no therapy, participated at residential rehab 6 months ag0. Exam Narrative Exam Narrative: GENERAL APPEARANCE: Well-nourished, non-toxic, awake and alert, atraumatic, no acute distress. SKIN: Warm, pink, dry, intact, mild erythema to the left wrist at injection sites without purulent drainage, no subcutaneous emphysema, no fluctuance or justice induration, consistent with cellulitis, scabbed over lesions without erythema to the left thigh HEAD: Normocephalic, atraumatic, normal hair distribution for gender/age. EYES: Pupils PERRLA, EOMs intact without nystagmus, normal conjunctiva, no exudates on lids/lashes. ENT: Nares patent, no circumoral cyanosis, no facial swelling NECK: Supple, trachea midline, painless cervical ROM. LUNGS/CHEST: Non-labored respirations, normal A/P diameter, symmetrical expansion, no chest wall deformity HEART (CV/PV): Regular rate, L radial pulse 2+, no peripheral edema, no JVD. ABDOMEN: Soft, non-distended, no guarding. MSK: Normal ROM, no swelling/deformity to bilateral UEs or LEs, moving all extremities without weakness, no cyanosis, spine midline without tenderness, normal curvature. NEURO: Mental Status AAOx4 - alert to person, place, time, events No facial droop, no forehead involvement. Motor: No focal weakness - strength 5/5 in bilateral UEs and LEs, proximal and distal, symmetric. Sensory: sensation intact to light touch globally. Gait normal: patient ambulated without ataxia into ED room. PSYCH: euthymic, cooperative, pleasant, appropriate speech Course Vital Signs Vital signs: Vital Signs Pulse 113 H 07/03/23 11:38 Respiratory Rate 15 07/03/23 11:38 Blood Pressure 121/83 07/03/23 11:38 Pulse Oximetry 97 07/03/23 11:38 Pulse 113 H 07/03/23 11:38 Respiratory Rate 15 07/03/23 11:38 Respiratory Effort Normal 07/03/23 11:39 Blood Pressure 121/83 07/03/23 11:38 Blood Pressure Position Sitting 07/03/23 11:38 Pulse Oximetry 97 07/03/23 11:38 Oxygen Delivery Method Room Air 11/28/23 11:38 Oxygen Flow Rate 0 07/03/23 11:38 Pain Level 6 07/03/23 11:38 PAWSS Have you Been Recently Intoxicated or Drunk Within the Last 30 days?: No Have you Ever Experienced Previous Episodes of Alcohol Withdrawal?: No Have you ever Experienced Withdrawal Seizures?: No Have you ever Experienced Delirium Tremens(DT)s?: No Have you ever undergone Alcohol Rehabilitation Treatment (i.e, inpt ot outpatient treatment programs)?: No Have you ever Experienced Blackouts?: No Have you ever Combined Alcohol with other Downers within the last 90 days?: No Have you ever Combined Alcohol with any other Substance of Abuse during the last 90 days?: No Result: 0
== END 2023-07-03 12:15 | disposition home or self-care (01) ==
PROVIDERS: Emergency Provider Physician Assistant; PCP Family Medicine
DX: L03.114 Cellulitis of left upper limb (principal); L03.116 Cellulitis of left lower limb; F17.210 Nicotine dependence, cigarettes, uncomplicated
CPT/HCPCS: 99282

== ENCOUNTER 2023-09-20 10:26 | Emergency (ER) | payer MEDICAID, SELFPAY ==
[2023-09-20 10:30] VITALS: BP 128/68; PULSE 80; RESP 20; TEMP 36.4; O2SAT 100
--- NOTE | 2023-09-20 10:59 | ED.GENADUL_ITS ---
HPI General Mode of arrival: ambulatory . Date/Time Provider Initiated Documentation: 09/20/23 10:40 . Limitations to Documentation: no limitations . Information obtained by: patient . HPI Narrative: 28-year-old male with history of recent IV drug use, presents with chief complaint of low back pain. Patient notes he has chronic low back pain for years but significantly worse over the past 2 days. No inciting injury or event. No trauma. He has no associated numbness or tingling. No weakness. No bowel or bladder dysfunction. Denies fever. Patient states the pain is bilateral lower spine and radiates into his right posterior leg. Related Data Home Medications Medication Instructions Recorded Confirmed albuterol sulfate 90 mcg/actuation 2 puff inhalation QID PRN 11/16/21 09/24/23 aerosol inhaler (Ventolin HFA) shortness of breath or wheezing #6.7 grams sumatriptan succinate 100 mg tablet See Rx Instructions PO .COMPLEX 03/28/23 09/24/23 #14 tabs topiramate 50 mg tablet (Topamax) 50 mg PO DAILY #30 tabs 03/28/23 09/24/23 Previous Rx's Medication Instructions Recorded albuterol sulfate 90 mcg/actuation 2 puff inhalation QID PRN 11/16/21 aerosol inhaler (Ventolin HFA) shortness of breath or wheezing #6.7 grams sumatriptan succinate 100 mg tablet See Rx Instructions PO .COMPLEX 03/28/23 #14 tabs topiramate 50 mg tablet (Topamax) 50 mg PO DAILY #30 tabs 03/28/23 Allergies Allergy/AdvReac Type Severity Reaction Status Date / Time cephalexin [Cephalexin] Allergy Intermediate RASH Unverified 09/20/23 10:33 honey Allergy Mild Hives Unverified 09/20/23 10:33 General Stated Complaint: Nk/Back Pain GABRIEL: 3 Exam Const General: cooperative and no acute distress HENMT Mouth: moist mucous membranes Eyes Conjunctivae: normal conjunctivae Sclera: normal sclerae Resp Auscultation: clear to auscultation bilaterally, no rales, no rhonchi and no wheezes Cardio Rate: regular rate and not tachycardic Rhythm: regular rhythm GI Palpation: soft, not firm, no guarding, no masses, not rigid and nontender Back/Spine/Pelvis Thoracic/Lumbar Spine: paraspinal tenderness (rt and lt lower lumbar paraspinal ), No thoracic spinal tenderness and lumbar spinal tenderness (lower) Other: ? palpable noted left lumbar paraspinal Skin General skin exam: no rashes or lesions noted Neuro General: patient alert, patient awake, patient oriented x3, tone normal and oth er (fatigued) Motor: strength 5/5 throughout (b/l LEs) Sensory Exam: no sensory deficits noted (b/l LEs) Other: No saddle anesthesia Course Vital Signs Vital signs: Vital Signs Temperature 36.4 C L 09/20/23 10:30 Pulse 80 09/20/23 10:30 Respiratory Rate 20 09/20/23 10:30 Blood Pressure 128/68 09/20/23 10:30 Pulse Oximetry 100 09/20/23 10:30 Temperature 36.4 C L 09/20/23 10:30 Temperature Source Tympanic 09/20/23 10:30 Pulse 80 09/20/23 10:30 Respiratory Rate 20 09/20/23 10:30 Respiratory Effort Normal 09/20/23 10:32 Blood Pressure 128/68 09/20/23 10:30 Blood Pressure Position Sitting 09/20/23 10:30 Pulse Oximetry 100 09/20/23 10:30 Oxygen Delivery Method Room Air 09/20/23 10:30 Oxygen Flow Rate 0 09/20/23 10:30 Pain Level 7 09/20/23 10:32 Medical Decision Making 28-year-old male with history of IV drug use presents with 2 days of acute low back pain. Patient has tenderness of his lower lumbar spine with questionable palpable lymph node left lumbar paraspinal. Patient is afebrile and hemodynamically stable. Patient is neurologically intact. Given history of IV drug use and presentation today, I am concerned about osteomyelitis of the spine versus disc herniation versus lumbar sacral sprain strain. I discussed with patient diagnostic treatment plan including MRI of the spine. Patient declines this at this time. He understands he may have severe, life- threatening or lifestyle modifying disease and that an MRI is needed for evaluation. Patient wishes to arrange this as an outpatient. He understands that delay could result in worsening condition and is not recommended. He continues to refuse. I have called and spoke with the patient's primary care physician, Dr. Ocampo, discussed ED presentation and recommendation for MRI. He will help expedite outpatient follow-up. The patient's pain was treated with lidocaine patch. He requested medication for spasm and was given Valium 2 mg p.o. He was given Toradol intramuscularly. Patient agreeable to having blood drawn. Patient reassessed and notes significant improvement in pain after medication. Labs reviewed: New transaminitis noted, anemia noted, thrombocytopenia, hyponatremia, significantly elevated CRP. Results were discussed with the patient. Plan for additional diagnostic testing. I had a discussion with the patient about my diagnostic/treatment plan. Patient declines plan and wishes to leave against medical advise. I reiterated my concerns to the patient and explained the risks of leaving prior to completion of workup and treatment. I specifically emphasized the possibility of life- threatening or lifestyle modifying disease that would not be appropriately treated if they leave. Patient verbalized understanding of my concerns and the potential for life threatening or lifestyle modifying disease. Patient has capacity to make informed decision. I again explained my concerns and urged the patient to stay for treatment as outlined. Patient continued to refuse. I then discussed potential less ideal alternatives to diagnostic/treatment plan as outlines and patient refused. I recommended that the patient follow-up with primary care physician ESTHER or return to the Emergency Department at any time for further treatment. 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 Anxiety disorder (Acute) Knee pain, right anterior (Acute ~10/05/22) Migraine headache (Chronic) Opioid abuse (Acute) Pleuritic chest pain (Acute) Shortness of breath (Acute) Pneumonitis (Acute) Hypoxia (Acute) Alcohol abuse (Chronic) E-cigarette or vaping product use associated lung injury (EVALI) (Acute) Smoker (Acute) Restless leg syndrome (Acute) COVID (Acute) Neck pain, chronic (Acute) Medical History Attention deficit hyperactivity disorder, 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) Surgical History History of arthroscopy of knee History of surgical removal of ganglion cyst (05/10/16) Excision of dorsal wrist ganglion cyst, right (05/10/16) Arthroplasty of knee (04/16/12) RIGHT Social History Smoking/Tobacco Use Status: Current every day Tobacco Type: cigarettes Smoking risk assessment performed?: Yes Alcohol Intake: current Alcohol Intake frequency: 3 or more drinks per day Alcohol type: beer Drug use: Daily Substance use type: marijuana Details: 12 pack/day Housing: house Current gender identity: male Do you feel safe at home: Yes Do you feel safe in your relationship?: Yes Additional Social history: Pt reports recovering substance use, no longer using heroin, cocaine. Pt reports no therapy, participated at residential rehab 6 months ag0. Discharge Plan Disposition Patient Disposition: Against Medical Advice Discharge Details Clinical Impression: History of intravenous drug abuse, Acute low back pain, CRP elevated, Transaminitis, Anemia, Hypernatremia, Thrombocytopenia Primary Care Provider: West Ocampo ED Provider: Ruslan Hicks Home Meds and New Rx's Prescriptions: Continued topiramate [Topamax] 50 mg tablet 50 mg PO DAILY Qty: 30 2RF sumatriptan succinate 100 mg tablet See Rx Instructions PO .COMPLEX Qty: 14 3RF Rx Instructions: take 1 tab at onset of headache; if no relief, may repeat 1 tab after at least 2 hrs; max = 2 tabs/24 hrs PO albuterol sulfate [Ventolin HFA] 90 mcg/actuation HFA aerosol inhaler 2 puff inhalation QID PRN (Reason: shortness of breath or wheezing) Qty: 6.7 3RF Discontinued lisdexamfetamine [Vyvanse] 70 mg capsule 70 mg PO DAILY MDD 1 Qty: 28 0RF Hold Instructions: Pt Stopped/Never Started lisdexamfetamine [Vyvanse] 30 mg capsule 30 mg PO DAILY MDD 1 cap Qty: 28 0RF Hold Instructions: Pt Stopped/Never Started lisdexamfetamine [Vyvanse] 40 mg capsule 40 mg PO DAILY MDD 1 Qty: 28 0RF Hold Instructions: Pt Stopped/Never Started Rx Instructions: take with a 30 mg to equal 70mg/day Discharge Instructions Instructions: Against Medical Advice (ED) Additional Instructions: You are leaving AGAINST MEDICAL ADVICE. You may have life-threatening or lifestyle modifying disease that will go undiagnosed and untreated. Please follow-up with your primary care physician as soon as possible to continue outpatient workup. There is concern you could have infection in your spine. Additional diagnostic testing is necessary. There is also concern that you have significant abnormalities of your diagnostic labs. Additional diagnostic testing is necessary. Avoid acetaminophen (Tylenol). Use lidocaine patches. Dose according to label. Return to the emergency ferment at any time for further workup and diagnostics a s recommended. Referrals: West Ocampo MD [Primary Care Provider] - Discharge Data Discharge Date/Time-TO BE ENTERED AT DEPARTURE: 09/20/23 12:23
[2023-09-20] MEDS: diazePAM 2 MG TAB PO (11:07)
[2023-09-20] MEDS: Lidocaine 5% Patch 1 PATCH TP (11:10)
[2023-09-20] MEDS: Ketorolac 30 MG/ML VIAL IM (11:10)
[2023-09-20 11:28] LABS: Absolute Basophil Count 0.01 10^3/uL (0.0-0.2); Absolute Eosinophil Count 0.13 10^3/uL (0.0-0.7); Absolute Lymphocyte Count 1.55 10^3/uL (1.2-3.4); Absolute Monocyte Count 0.56 10^3/uL (0.1-0.8); Absolute Neutrophil Count 2.73 10^3/uL (1.2-6.7); Basophils % 0.2; Eosinophils % 2.6; HCT 31.8 % (40.0-50.0); HGB 10.8 g/dL (13.5-17.5); Lymphocytes % 31.1; MCV 86 fL (80-95); MPV 9.9 fL (8.0-11.0); Monocytes % 11.2; Neutrophils % 54.9; Platelet Count 129 10^3/uL (130-400); RBC 3.72 10^6/uL (4.36-5.78); RDW 12.8 % (11.8-14.1); RDW-SD 39.4 fL; WBC 4.98 10^3/uL (4.4-10.8)
[2023-09-20 11:30] LABS: ESR 6 mm/hr (0-15)
[2023-09-20 11:44] LABS: ALT 338 U/L (16-63); AST 250 U/L (15-37); Albumin 3.1 g/dL (3.4-5.0); Alkaline Phosphatase 93 U/L (46-116); Anion Gap 6.5 mmol/L (3-11); BUN 16 mg/dL (7-18); Bilirubin, Total 0.3 mg/dL (0.2-1.0); C-Reactive Protein 3.54 mg/dL (<or=0.5); CO2 30.5 mmol/L (21.0-32.0); CREATININE 0.7 mg/dL (0.70-1.30); Calcium 8.8 mg/dL (8.5-10.1); Chloride 110 mmol/L (98-107); Estimated GFR 129.52 (mL/min/1.73m2); Glucose 111 mg/dL (74-106); Potassium 4.1 mmol/L (3.5-5.1); Sodium 147 mmol/L (136-145); Total Protein 6.3 g/dL (6.4-8.2)
[2023-09-20 12:52] VITALS: BP 128/68; PULSE 80; RESP 20; TEMP 36.4; O2SAT 100
[2023-09-20 19:46] LABS: Hepatitis A Antibody IgM Negative (Negative); Hepatitis B Core Antibody Negative (Negative); Hepatitis B surface Ag Negative (Negative); Hepatitis C Ab w Rflx HCV PCR Reactive (Negative)
[2023-09-21 10:07] LABS: HCV RNA Detection Quantitative 17000000 IU/mL (Undetected); HCV RNA Qualitative Detected (Undetected)
[2023-09-21 11:03] LABS: Lyme Ab w Rflx to Lyme Confirm Negative (Negative)
[2023-09-23 13:19] LABS: Anaplasma phagocytophilum Negative (Negative); B. miyamotoi PCR Negative (Negative); Babesia divergens/MO-1 Negative (Negative); Babesia duncani Negative (Negative); Babesia microti Negative (Negative); Ehrlichia chaffeensis Negative (Negative); Ehrlichia ewingii/canis Negative (Negative); Ehrlichia muris eauclairensis Negative (Negative)
== END 2023-09-20 12:23 | disposition left against medical advice (07) ==
PROVIDERS: Emergency Provider Student in an Organized Health Care Education/Training Program; PCP Family Medicine
DX: M54.50 Low back pain, unspecified (principal); R79.82 Elevated C-reactive protein (CRP); R74.01 Elevation of levels of liver transaminase levels; E87.0 Hyperosmolality and hypernatremia; D69.6 Thrombocytopenia, unspecified; F17.210 Nicotine dependence, cigarettes, uncomplicated; Z53.29 Procedure and treatment not carried out because of patient's decision for other reasons
CPT/HCPCS: 36415; 80053; 85652; 86704; 86709; 86803; 87340; 87522; 87798; 96372; 99283; 85025; 86140; 86618; J1885

== ENCOUNTER 2023-09-23 21:56 | Observation (INO) | payer MEDICAID, SELFPAY ==
[2023-09-23] VITALS (14 sets, daily range): BP systolic 124–154; BP diastolic 62–93; PULSE 95–124; RESP 7–27; TEMP 36.3; O2SAT 79–100
--- NOTE | 2023-09-23 21:45 | RT.EKG_ITS ---
APPROVED REPORT Exam: Resting ECG Reason for Exam: chest pain Patient Location: E HR:121 bpm ECG Measurements Heart Rate 121 AXIS GA 129 P 86 QRSd 89 QRS 78 QT 330 T [id number] QTc 469 Conclusion Sinus tachycardia...rate> 99 Nonspecific repol abnormality, diffuse leads...ST dep, T flat/neg, ant/lat/inf No ST segment or T wave abnormalities to suggest occlusive SD
--- NOTE | 2023-09-23 22:00 | DI.CT_ITS ---
Exam(s) CT THORACIC SPINE W EXAM: CT THORACIC SPINE W CLINICAL HISTORY: back pain, sepsis, IV drug use. TECHNIQUE: Imaging Protocol: Axial computed tomography images with coronal and sagittal reformatted images were created and reviewed. CONTRAST MATERIAL: Intravenous: Omnipaque 350. Contrast volume:100 mL COMPARISON: No exams were available for comparison FINDINGS: Bones: No fractures or dislocations are seen. The alignment of the spine is normal including the cerv icothoracic junction. There are mild degenerative changes seen in the thoracic spine. No endplate er osions are seen. Soft tissues: The soft tissues of the chest are unremarkable. No large disk herniations are identifie d. Degenerative changes are most prominent at T11-T12 where there is mild narrowing of the central s tess canal or neural foramen. No abnormal enhancement is seen. No paraspinal fluid collection is s een. IMPRESSION: 1. No findings of spondylo discitis. 2. Degenerative changes in the thoracic spine. RADIATION DOSE DELIVERED: 1,478.41mGy.cm Total DLP DATA REPOSITORY: All CT scans at this facility are submitted to the National Radiology Data Registry (NRDR) Dose Index Registry (DIR) with the [employer] (A[employer]). RADIATION OPTIMIZATION: All CT scans at this facility use at least one of these dose optimization te chniques: automated exposure control; mA and/or kV adjustment per patient size (includes targeted exa ms where dose is matched to clinical indication); or iterative reconstruction.
--- NOTE | 2023-09-23 22:00 | DI.CT_ITS ---
Exam(s) CT LUMBAR SPINE W EXAM: CT LUMBAR SPINE W CLINICAL HISTORY: back pain, sepsis, IV drug use. TECHNIQUE: Imaging Protocol: Axial computed tomography images with coronal and sagittal reformatted images were created and reviewed CONTRAST MATERIAL: Intravenous: Omnipaque 350 Contrast volume:100 mL COMPARISON: CT CT CHEST PE CTA from 10/21/[address] THORACIC SPINE W from 09/23/2023 FINDINGS: Bones: The last intervertebral disc space is designated the L5/S1 level for the numbering purpose of this examination. There is some irregularity of the inferior endplates at L5 and the superior endpla te of S1. There is a vacuum disc at L5-S1. No enhancing fluid collection is seen. Alignment is sat isfactory. No fracture is seen. T12-L1: No disc herniations or bulges are present. No significant neural foraminal or central spinal canal stenosis. L1-2: No disc herniations or bulges are present. No significant neural foraminal or central spinal c anal stenosis. L2-3: No disc herniations or bulges are present. No significant neural foraminal or central spinal c anal stenosis. L3-4: No disc herniations or bulges are present. No significant neural foraminal or central spinal c anal stenosis. L4-5: There is a mild diffuse disc bulge. The findings do result in mild bilateral neural foraminal narrowing. No significant central spinal canal stenosis. L5-S1: Mild diffuse disc bulge at L5-S1 resulting in mild bilateral neural foraminal narrowing. No significant central spinal canal stenosis. Soft Tissues: The visualized SI joints and sacrum are will maintained. The paraspinal soft tissues a re unremarkable. IMPRESSION: 1. There is irregularity of the cortex of the inferior endplate of L5 and the superior endplate of S1 . These may represent erosions. Spondylodiscitis should be considered. Degenerative changes should also be considered. 2. Degenerative changes at L4-5 and L5-S1 resulting in mild narrowing of the neural foramen bilateral ly. 3. No significant central spinal canal stenosis. 4. No definite enhancing fluid collections are seen to suggest an abscess at this time. RADIATION DOSE DELIVERED: 1,478.41mGy.cm Total DLP DATA REPOSITORY: All CT scans at this facility are submitted to the National Radiology Data Registry (NRDR) Dose Index Registry (DIR) with the [employer] (ACR). RADIATION OPTIMIZATION: All CT scans at this facility use at least one of these dose optimization te chniques: automated exposure control; mA and/or kV adjustment per patient size (includes targeted exa ms where dose is matched to clinical indication); or iterative reconstruction.
--- NOTE | 2023-09-23 22:00 | DI.RAD_ITS ---
Exam(s) XR PORTABLE CHEST AP EXAM: XR PORTABLE CHEST AP CLINICAL HISTORY: sepsis TECHNIQUE: 2D digital imaging was performed of the chest. One image was obtained. An AP view was ob tained. COMPARISON: No exams were available for comparison FINDINGS: MEDIASTINUM: Normal. HEART: Normal. PULMONARY VASCULATURE: Normal. LUNGS: Clear. PLEURAL SPACE: No pleural effusion or pneumothorax. BONE:Within normal limits for the patient's age. OTHER FINDINGS:Normal. IMPRESSION: No acute pulmonary findings. DATA REPOSITORY: RADIATION DOSE DELIVERED:
[2023-09-23 22:16] LABS: BE (Venous) 4 mmol/L (-2-3); HCO3 (Venous) 25 mmol/L (23-28); O2 Sat (Venous) 67 %; TCO2 (Venous) 22 mmol/L (24-29); pCO2 (Venous) 24 mmHg (41-51); pO2 (Venous) 26 mmHg
[2023-09-23 22:19] LABS: pH (Venous) 7.63 (7.31-7.41)
--- NOTE | 2023-09-23 22:19 | DI.CT_ITS ---
Exam(s) CT HEAD NECK W EXAM: CT HEAD NECK W CLINICAL HISTORY: sepsis, IV drug use, back pain, vomiting. TECHNIQUE: Imaging Protocol: Axial computed tomography images with coronal and sagittal reformatted images were created and reviewed. CONTRAST MATERIAL: Intravenous: Omnipaque 350 contrast volume:115 mL COMPARISON: CT CT HEAD WO from 08/29/[address] BRAIN NECK CTA from 09/01/[address] HEAD WO from 09/04/2022 FINDINGS: Ventricles and Extra axial spaces: Normal in size and morphology for the patient's age. Hemorrhage: None. Cerebral parenchyma: Normal. Enhancement: No suspicious enhancement. [place]: Unremarkable. Midline shift: None. Brainstem/Cerebellum: Normal. Calvarium: Normal. Visualized Paranasal sinuses/Mastoids: Clear. Vasculature: No evidence of a dural venous sinus thrombosis. Orbits and orbital soft tissues: Within normal limits. Visualized paranasal sinuses: Within normal limits. Nasopharynx: The adenoids are enlarged. Oropharynx: Within normal limits. Hypopharynx: Within normal limits. Larynx: Within normal limits. Retropharyngeal space: Within normal limits. Parotids/submandibular: Within normal limits. Thyroid gland: Within normal limits. Lymphadenopathy: Mildly enlarged lymph nodes in the neck particularly at the level 2. These are lik ioana reactive. Trachea: Within normal limits. Lung apices: Within normal limits. Bones: Within normal limits for the patient's age. Carotids/Jugular: Within normal limits. Soft tissues: Within normal limits. IMPRESSION: 1. No acute intracranial process. 2. No findings to suggest spondylo discitis in the cervical spine. No focal fluid collection to sugg est an abscess. 3. Hypertrophy of the adenoids. RADIATION DOSE DELIVERED: 1,894.31mGy.cm Total DLP DATA REPOSITORY: All CT scans at this facility are submitted to the National Radiology Data Registry (NRDR) Dose Index Registry (DIR) with the [employer] (ACR). RADIATION OPTIMIZATION: All CT scans at this facility use at least one of these dose optimization te chniques: automated exposure control; mA and/or kV adjustment per patient size (includes targeted exa ms where dose is matched to clinical indication); or iterative reconstruction.
[2023-09-23 22:23] LABS: Abs Immature Grans 0.02 10^3/uL (0.0-0.06); Absolute Basophil Count 0.02 10^3/uL (0.0-0.2); Absolute Eosinophil Count 0.08 10^3/uL (0.0-0.7); Absolute Monocyte Count 0.63 10^3/uL (0.1-0.8); Absolute Neutrophil Count 5.85 10^3/uL (1.2-6.7); Basophils % 0.2; HCT 36.2 % (40.0-50.0); HGB 12.6 g/dL (13.5-17.5); Immature Grans % 0.2; Lymphocytes % 20.5; MCH 28.5 pg (27.0-33.0); MCHC 34.8 % (32.0-36.0); MCV 82 fL (80-95); MPV 9.9 fL (8.0-11.0); Monocytes % 7.6; Neutrophils % 70.5; Platelet Count 176 10^3/uL (130-400); RBC 4.42 10^6/uL (4.36-5.78); RDW 12.5 % (11.8-14.1); RDW-SD 37.6 fL
[2023-09-23] MEDS: Normal Saline 1,000 ML 2000 ML IV (22:23)
[2023-09-23 22:24] LABS: ESR 6 mm/hr (0-15)
--- NOTE | 2023-09-23 22:33 | W.ED.GENAD ---
HPI General Mode of arrival: EMS. Date/Time Provider Initiated Documentation: 09/23/23 21:58. Limitations to Documentation: no limitations. Information obtained by: patient, EMS and old records reviewed. HPI Narrative: 28yo M with hx IVDU, ETOH abuse, hep C, migraines, presenting malaise, chills, and vomiting. Seen in this ED on 09/20 for back pain, there was concern for vertebral osteomyelitis at that time however he left AMA prior to imaging. Today has had diffuse body aches, chills, nausea, vomited x 4-5, shortness of breath. I feel like I'm going to . No numbness or focal weakness. No dysuria or hematuria. No diarrhea. No abdominal pain. No known sick contacts. Related Data Home Medications Medication Instructions Recorded Confirmed albuterol sulfate 90 mcg/actuation 2 puff inhalation QID PRN 11/16/21 09/24/23 aerosol inhaler (Ventolin HFA) shortness of breath or wheezing #6.7 grams sumatriptan succinate 100 mg tablet See Rx Instructions PO .COMPLEX 03/28/23 09/24/23 #14 tabs topiramate 50 mg tablet (Topamax) 50 mg PO DAILY #30 tabs 03/28/23 09/24/23 Previous Rx's Medication Instructions Recorded albuterol sulfate 90 mcg/actuation 2 puff inhalation QID PRN 11/16/21 aerosol inhaler (Ventolin HFA) shortness of breath or wheezing #6.7 grams sumatriptan succinate 100 mg tablet See Rx Instructions PO .COMPLEX 03/28/23 #14 tabs topiramate 50 mg tablet (Topamax) 50 mg PO DAILY #30 tabs 03/28/23 Allergies Allergy/AdvReac Type Severity Reaction Status Date / Time cephalexin [Cephalexin] Allergy Intermediate RASH Unverified 09/20/23 10:33 honey Allergy Mild Hives Unverified 09/20/23 10:33 General Stated Complaint: GenMedical GABRIEL: 2 Review of Systems Narrative: see HPI Exam Narrative Exam Narrative: General: Alert, anxious, breathing rapidly Head: Normocephalic, atraumatic Neck: Trachea midline, ?Neck supple. ENT: ?MMM.? Cardiac: ?Tachycardic, regular, no murmurs appreciated Resp: Tachypneic, shallow breathing, CTAB. Abd: ?Soft, non-distended, nontender : ?No suprapubic tenderness. Back: Low lumbar midline TTP Extremities: ?No deformities.? No peripheral edema. Neuro: ? GCS 15.? PERRL - Kernig's -Brudsinskis.? Fluent speech, no dysarthria. Motor- 5/5 strength symmetric bilateral upper and lower extremities Sensation- ?Intact to light touch and symmetric multiple dermatomes including upper and lower extremities. No saddle anesthesia. Coordination- No dysmetria on finger to nose CRANIAL NERVES: II: Pupils equal and reactive, III, IV, : EOM intact, no gaze preference or deviation, no nystagmus. V: normal sensation in V1, V2, and V3 segments bilaterally VII: no asymmetry, no nasolabial fold flattening VIII: normal hearing to speech IX, X: normal palatal elevation, no uvular deviation XI: 5/5 head turn and 5/5 shoulder shrug bilaterally XII: midline tongue protrusion Course Vital Signs Vital signs: Vital Signs Temperature 36.3 C L 09/23/23 21:55 Pulse 124 H 09/23/23 21:55 Respiratory Rate 20 09/23/23 21:55 Blood Pressure 154/62 H 09/23/23 21:55 Pulse Oximetry 100 09/23/23 21:55 Temperature 36.3 C L 09/23/23 21:55 Temperature Source Temporal Artery Scan 09/23/23 21:55 Pulse 106 H 09/23/23 22:17 Pulse 107 H 09/23/23 22:20 Respiratory Rate 18 09/23/23 22:20 Respiratory Effort Normal, Non-Labored 09/23/23 22:07 Respiratory Depth Deep 09/23/23 22:07 Respiratory Pattern Tachypnea 09/23/23 22:07 Blood Pressure 152/90 H 09/23/23 22:17 Blood Pressure Mean 106 09/23/23 22:17 Blood Pressure Position Supine 09/23/23 21:55 Pulse Oximetry 100 09/23/23 22:10 Oxygen Delivery Method Room Air 09/23/23 21:55 Oxygen Flow Rate 0 09/23/23 21:55 Pain Level 10 09/23/23 21:55 Lab/Test Results Lab/Test Results: 09/23/23 22:05 Blood Blood Culture - Pending 09/23/23 22:05 Blood Blood Culture - Pending Laboratory Tests Range/Units 09/23/23 22:00 WBC (4.4-10.8) 10^3/uL 8.30 RBC (4.36-5.78) 10^6/uL 4.42 Hgb (13.5-17.5) g/dL 12.6 L Hct (40.0-50.0) % 36.2 L MCV (80-95) fL 82 D MCH (27.0-33.0) pg 28.5 MCHC (32.0-36.0) % 34.8 RDW (11.8-14.1) % 12.5 Plt Count (130-400) 10^3/uL 176 MPV (8.0-11.0) fL 9.9 Immature Gran % 0.2 Neutrophils % 70.5 Lymphocytes % 20.5 Monocytes % 7.6 Eosinophils % 1.0 Basophils % 0.2 Nucleated RBC % (0.0-0.3) % 0.0 Absolute Neutrophils (1.2-6.7) 10^3/uL 5.85 Absolute Lymphocytes (1.2-3.4) 10^3/uL 1.70 Absolute Monocytes (0.1-0.8) 10^3/uL 0.63 Absolute Eosinophils (0.0-0.7) 10^3/uL 0.08 Absolute Basophils (0.0-0.2) 10^3/uL 0.02 ESR (0-15) mm/hr 6 VBG pH (7.31-7.41) 7.63 H* VBG pCO2 (41-51) mmHg 24 L VBG pO2 mmHg 26 VBG HCO3 (23-28) mmol/L 25 VBG Total CO2 (24-29) mmol/L 22 L VBG O2 Saturation % 67 VBG Base Excess (-2-3) mmol/L 4 H Medical Decision Making 28yo M with hx IVDU, ETOH abuse, hep C, migraines, presenting malaise, chills, and vomiting. History from patient, EMS, [facility] record review. Seen in this ED on 09/20 for back pain, there was concern for vertebral osteomyelitis at that time however he left AMA prior to imaging. Today has had diffuse body aches, chills, nausea, vomited x 4-5, shortness of breath, I feel like I'm going to , reports fevers at home. Tachycardiac to 120's-130's on arrival, breathing rapidly and shallowly, tactile fever though orall temp WNL. Abdomen non-tender, no meningeal signs, does have midline low lumbar tenderness. Normal neurologic exam. Will treat empirically for sepsis while awaiting results ; 2L IVFB, zosyn, zyvox. Blood cultures sent. -EKG sinus tachycardia, no ST segment or T wave abnormalities to suggest occlusive DC. CXR independently reviewed; no focal pneumonia or pneumothorax on my view, agree with radiology read below. -Labs reviewed as below, CBC reassuring with no leukocytosis (though WBC increased to 8 from 4 on 09/20/23), mild anemia at 12.6, CMP with elevated gap at 16, no acidosis, transaminitis worsening from 09/20/23, VBG with respiratory alkalosis ph 7.6 pCO2 24, lactate normal, procal borderline at 1.0, ESR normal, CRP elevated at 2.64 (down from prior 3.5), trop negative, coags with INR elevated at 1.3, dimer elevated (CT PE ordered). UA not infected. -CTs head and spine independently reviewed; no large intracranial bleed or mass on my view. Discussed with radiologist who is concerned for discitis or osteomyelitits at L5/S1 and clinically this is in where the patient is TTP; agree with radiology read below. -CT PE independently reviewed; no large saddle embolus on my view, agree with radiology read below Patient updated regarding findings and states he is amenable to admission or transfer if required. [facility] spine consulted; no capacity at this time. Agree with urgent (rather than emergent) MRI this morning and would not transfer for such. Pending MRI results, might benefit from interventional radiology for biopsy. Discussed with [facility] spine Dr. George, would not take patient at this time but advised proceeding with MRI, potential for transfer to medicine service for IR biopsy should MRI be positive. Discussed with [facility] hospitalist and accepted to medicine service; awaiting admission orders and transfer to the floor. Medical Records Medical records reviewed: Yes I reviewed the patient's medical records. Medical records narrative: ED visit note 09/20/23 Imaging Data Radiologic Study: Imaging: CT Scan Radiologist's impression: CT L spine IMPRESSION: 1. Degenerative changes are present in the spine, advanced for age. 2. Endplate erosions are noted at L5-S1. This may reflect advanced degenerative change. Early discitis-osteomyelitis at L5-S1 is not excluded. 3. No paraspinal abscess. 4. No significant spinal canal stenosis. 5. Neural foraminal narrowing at L5-S1 bilaterally. Radiologic Study #2: Imaging: CT Scan Radiologist's impression: CT T spine IMPRESSION: 1. No acute findings. Negative for discitis-osteomyelitis. 2. Degenerative changes are present, advanced for age. 3. Narrowing of the spinal canal and neural foraminal narrowing are particularly noted at T11-T12. Radiologic Study #3: Imaging: CT Scan Radiologist's impression: CT head CT neck IMPRESSION: No acute findings. IMPRESSION: 1. No soft tissue abscess. 2. No evidence of discitis-osteomyelitis in the cervical spine. 3. Hypertrophy tonsillar tissues Radiologic Study #4: Imaging: X-Ray Radiologist's impression: IMPRESSION: No acute cardiopulmonary abnormality. Radiologic Study #5: Imaging: CT Scan Radiologist's impression: CT PE IMPRESSION: 1. Negative for pulmonary embolism. 2. Negative for aortic dissection. 3. No significant pneumonia. Lab Data Lab results reviewed: Yes I reviewed the patient's lab results. Labs: 09/24/23 00:40 Urine - Voided Urine Culture - Pending 09/23/23 22:53 Blood Blood Culture - Pending 09/23/23 22:39 Blood Blood Culture - Pending Laboratory Tests Range/Units 09/23/23 09/23/23 09/24/23 22:00 23:00 00:40 WBC (4.4-10.8) 10^3/uL 8.30 RBC (4.36-5.78) 10^6/uL 4.42 Hgb (13.5-17.5) g/dL 12.6 L Hct (40.0-50.0) % 36.2 L MCV (80-95) fL 82 D MCH (27.0-33.0) pg 28.5 MCHC (32.0-36.0) % 34.8 RDW (11.8-14.1) % 12.5 Plt Count (130-400) 10^3/uL 176 MPV (8.0-11.0) fL 9.9 Immature Gran % 0.2 Neutrophils % 70.5 Lymphocytes % 20.5 Monocytes % 7.6 Eosinophils % 1.0 Basophils % 0.2 Nucleated RBC % (0.0-0.3) % 0.0 Absolute Neutrophils (1.2-6.7) 10^3/uL 5.85 Absolute Lymphocytes (1.2-3.4) 10^3/uL 1.70 Absolute Monocytes (0.1-0.8) 10^3/uL 0.63 Absolute Eosinophils (0.0-0.7) 10^3/uL 0.08 Absolute Basophils (0.0-0.2) 10^3/uL 0.02 ESR (0-15) mm/hr 6 PT (9.1-11.1) sec 12.4 H INR (0.9-1.1) 1.3 H APTT (23.6-32.8) sec 32.5 D-Dimer (<500) ng/mlFEU 885 H VBG pH (7.31-7.41) 7.63 H* VBG pCO2 (41-51) mmHg 24 L VBG pO2 mmHg 26 VBG HCO3 (23-28) mmol/L 25 VBG Total CO2 (24-29) mmol/L 22 L VBG O2 Saturation % 67 VBG Base Excess (-2-3) mmol/L 4 H VBG Lactate (0.6-1.4) mmol/L Sodium (136-145) mmol/L 138 Potassium (3.5-5.1) mmol/L 3.4 L Chloride (98-107) mmol/L 98 Carbon Dioxide (21.0-32.0) mmol/L 24.1 Anion Gap (3-11) mmol/L 15.9 H BUN (7-18) mg/dL 13 Creatinine (0.70-1.30) mg/dL 1.0 Est GFR (CKD-EPI 2020) (mL/min/1.73m2) 105.79 Glucose (74-106) mg/dL 117 H Calcium (8.5-10.1) mg/dL 10.2 H Total Bilirubin (0.2-1.0) mg/dL 0.9 AST (15-37) U/L 403 H ALT (16-63) U/L 594 H Alkaline Phosphatase (46-116) U/L 146 H Troponin I (< or =60) ng/L < 50 C-Reactive Protein (<or=0.5) mg/dL 2.64 H Total Protein (6.4-8.2) g/dL 7.6 Albumin (3.4-5.0) g/dL 4.0 Procalcitonin ng/mL 1.0 Urine Color (Yellow) Yellow Urine Clarity (Clear) Clear Urine pH (5-8) 8.5 H Ur Specific [place] (1.005-1.025) 1.015 Urine Protein (Neg-Trace) mg/dL Trace Urine Ketones (Negative) mg/dL 15 H Urine Blood (Negative) Negative Urine Nitrite (Negative) Negative Urine Bilirubin (Negative) Negative Urine Urobilinogen (Up to 0.2) mg/dL 1.0 H Ur Leukocyte Esterase (Negative) Negative Urine Glucose (Negative) mg/dL Negative COVID-19 Source Nasopharynx SARS-CoV-2 (PCR) (Negative) Negative Range/Units 09/24/23 01:40 WBC (4.4-10.8) 10^3/uL RBC (4.36-5.78) 10^6/uL Hgb (13.5-17.5) g/dL Hct (40.0-50.0) % MCV (80-95) fL MCH (27.0-33.0) pg MCHC (32.0-36.0) % RDW (11.8-14.1) % Plt Count (130-400) 10^3/uL MPV (8.0-11.0) fL Immature Gran % Neutrophils % Lymphocytes % Monocytes % Eosinophils % Basophils % Nucleated RBC % (0.0-0.3) % Absolute Neutrophils (1.2-6.7) 10^3/uL Absolute Lymphocytes (1.2-3.4) 10^3/uL Absolute Monocytes (0.1-0.8) 10^3/uL Absolute Eosinophils (0.0-0.7) 10^3/uL Absolute Basophils (0.0-0.2) 10^3/uL ESR (0-15) mm/hr PT (9.1-11.1) sec INR (0.9-1.1) APTT (23.6-32.8) sec D-Dimer (<500) ng/mlFEU VBG pH (7.31-7.41) VBG pCO2 (41-51) mmHg VBG pO2 mmHg VBG HCO3 (23-28) mmol/L VBG Total CO2 (24-29) mmol/L VBG O2 Saturation % VBG Base Excess (-2-3) mmol/L VBG Lactate (0.6-1.4) mmol/L 0.4 L Sodium (136-145) mmol/L Potassium (3.5-5.1) mmol/L Chloride (98-107) mmol/L Carbon Dioxide (21.0-32.0) mmol/L Anion Gap (3-11) mmol/L BUN (7-18) mg/dL Creatinine (0.70-1.30) mg/dL Est GFR (CKD-EPI 2020) (mL/min/1.73m2) Glucose (74-106) mg/dL Calcium (8.5-10.1) mg/dL Total Bilirubin (0.2-1.0) mg/dL AST (15-37) U/L ALT (16-63) U/L Alkaline Phosphatase (46-116) U/L Troponin I (< or =60) ng/L < 50 C-Reactive Protein (<or=0.5) mg/dL Total Protein (6.4-8.2) g/dL Albumin (3.4-5.0) g/dL Procalcitonin ng/mL Urine Color (Yellow) Urine Clarity (Clear) Urine pH (5-8) Ur Specific [place] (1.005-1.025) Urine Protein (Neg-Trace) mg/dL Urine Ketones (Negative) mg/dL Urine Blood (Negative) Urine Nitrite (Negative) Urine Bilirubin (Negative) Urine Urobilinogen (Up to 0.2) mg/dL Ur Leukocyte Esterase (Negative) Urine Glucose (Negative) mg/dL COVID-19 Source SARS-CoV-2 (PCR) (Negative) Quality:SDOH Health Related Social Needs: No Data to Display Critical Care Time Critical Care Time Critical Care Time: Yes Total Critical Care Time: 32 Attestation: Due to a high probability of clinically significant, life threatening deterioration, the patient required my highest level of preparedness to intervene emergently and I personally spent this critical care time directly and personally managing the patient. This critical care time included obtaining a history; examining the patient; pulse oximetry; ordering and review of studies; arranging urgent treatment with development of a management plan; evaluation of patient's response to treatment; frequent reassessment; and, discussions with other providers. This critical care time was performed to assess and manage the high probability of imminent, life-threatening deterioration that could result in multi-organ failure. It was exclusive of separately billable procedures? 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 Anxiety disorder (Acute) Knee pain, right anterior (Acute ~10/05/22) Migraine headache (Chronic) Opioid abuse (Acute) Pleuritic chest pain (Acute) Shortness of breath (Acute) Pneumonitis (Acute) Hypoxia (Acute) Alcohol abuse (Chronic) E-cigarette or vaping product use associated lung injury (EVALI) (Acute) Smoker (Acute) Restless leg syndrome (Acute) COVID (Acute) Neck pain, chronic (Acute) Medical History Attention deficit hyperactivity disorder, 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) Surgical History History of arthroscopy of knee History of surgical removal of ganglion cyst (05/10/16) Excision of dorsal wrist ganglion cyst, right (05/10/16) Arthroplasty of knee (04/16/12) RIGHT Social History Smoking/Tobacco Use Status: Current every day Tobacco Type: cigarettes Smoking risk assessment performed?: Yes Alcohol Intake: current Alcohol Intake frequency: 3 or more drinks per day Alcohol type: beer Drug use: Daily Substance use type: marijuana Details: 12 pack/day Housing: house Current gender identity: male Do you feel safe at home: Yes Do you feel safe in your relationship?: Yes Additional Social history: Pt reports recovering substance use, no longer using heroin, cocaine. Pt reports no therapy, participated at residential rehab 6 months ag0. Discharge Plan Disposition Patient Disposition: Admit to [facility] Condition: Serious Discharge Details Clinical Impression: Back pain, Sepsis Primary Care Provider: [place] ED Provider: Olena Sterling Home Meds and New Rx's Prescriptions: No Action topiramate [Topamax] 50 mg tablet 50 mg PO DAILY Qty: 30 2RF sumatriptan succinate 100 mg tablet See Rx Instructions PO .COMPLEX Qty: 14 3RF Rx Instructions: take 1 tab at onset of headache; if no relief, may repeat 1 tab after at least 2 hrs; max = 2 tabs/24 hrs PO albuterol sulfate [Ventolin HFA] 90 mcg/actuation HFA aerosol inhaler 2 puff inhalation QID PRN (Reason: shortness of breath or wheezing) Qty: 6.7 3RF
[2023-09-23 22:36] LABS: C-Reactive Protein 2.64 mg/dL (<or=0.5)
[2023-09-23 22:43] LABS: Troponin I < 50 ng/L (< or =60)
[2023-09-23 22:47] LABS: ALT 594 U/L (16-63); AST 403 U/L (15-37); Alkaline Phosphatase 146 U/L (46-116); Anion Gap 15.9 mmol/L (3-11); BUN 13 mg/dL (7-18); Bilirubin, Total 0.9 mg/dL (0.2-1.0); CO2 24.1 mmol/L (21.0-32.0); Calcium 10.2 mg/dL (8.5-10.1); Chloride 98 mmol/L (98-107); Estimated GFR 105.79 (mL/min/1.73m2); Glucose 117 mg/dL (74-106); Potassium 3.4 mmol/L (3.5-5.1); Sodium 138 mmol/L (136-145); Total Protein 7.6 g/dL (6.4-8.2)
[2023-09-23] MEDS: Normal Saline - Diluent 50 ML VIAL IJ ×2 (22:52→22:53)
[2023-09-23] MEDS: Omnipaque 350 MG/ML 100 ML BTL IJ (22:53)
[2023-09-23 23:03] LABS: Source Nasopharynx
[2023-09-23] MEDS: PIPERACILLIN/TAZO 4.5 GM in Normal Saline 100 ML IVPB (23:06)
[2023-09-23] MEDS: LORazepam 2 MG/ML VIAL 1 MG IVP (23:06)
[2023-09-23 23:22] LABS: INR 1.3 (0.9-1.1); PTT Activated 32.5 sec (23.6-32.8); Prothrombin Time 12.4 sec (9.1-11.1)
[2023-09-23 23:36] LABS: COVID-19 PCR Negative (Negative)
[2023-09-23 23:40] LABS: D-Dimer 885 ng/mlFEU (<500)
[2023-09-24] VITALS (48 sets, daily range): BP systolic 107–136; BP diastolic 63–84; PULSE 69–112; RESP 13–31; TEMP 36.1–36.9; O2SAT 92–100
--- NOTE | 2023-09-24 | DI.CT_ITS ---
Exam(s) CT CHEST PE CTA EXAM: CT CHEST PE CTA CLINICAL HISTORY: short of breath, tachycardiac, + dimer. TECHNIQUE: Imaging Protocol: Axial CT angiography was performed with multi-slice acquisition and mu lti-planar and/or 3D reconstructions. CONTRAST MATERIAL: Intravenous: Omnipaque 350 contrast volume:85 mL COMPARISON: CT CT CHEST PE CTA from 10/21/[address] BRAIN NECK CTA from 09/01/2022 FINDINGS: The examination is limited due to patient motion artifact. Tracheobronchial tree: Patent where visualized. Pulmonary parenchyma: No consolidation or dominant measurable mass. No architectural distortion. Pulmonary Arteries: Evaluation is limited due to patient motion artifact particularly involving the p eripheral pulmonary arteries. No central pulmonary embolus is seen. Mediastinum and [place]: No dominant adenopathy or fluid collection. The esophagus is unremarkable. Th ere is triangular shaped soft tissue in the anterior mediastinum most consistent with residual thymic tissue. Visualized thyroid gland: Unremarkable. Pleura: No effusion or pneumothorax. Heart: The heart is not dilated. No coronary artery calcifications are seen. No pericardial effusion. Aorta: Thoracic aorta non-dilated. No evidence of dissection. Upper abdomen: Unremarkable. Soft tissues: Unremarkable. Bones: Within normal limits for the patient's age. IMPRESSION: No evidence of pulmonary embolism, thoracic aortic dissection or aneurysm. RADIATION DOSE DELIVERED: 410.7mGy.cm Total DLP DATA REPOSITORY: All CT scans at this facility are submitted to the National Radiology Data Registry (NRDR) Dose Index Registry (DIR) with the [employer] ([employer]). RADIATION OPTIMIZATION: All CT scans at this facility use at least one of these dose optimization te chniques: automated exposure control; mA and/or kV adjustment per patient size (includes targeted exa ms where dose is matched to clinical indication); or iterative reconstruction.
--- NOTE | 2023-09-24 | DI.US_ITS ---
Exam(s) US ABDOMEN LIMITED EXAM: US ABDOMEN LIMITED CLINICAL HISTORY: hepatitis C TECHNIQUE: Ultrasound abdomen performed using standard protocol. COMPARISON: CT CT CHEST PE CTA from 09/24/2023 FINDINGS: PANCREAS: Normal where visualized. LIVER: Normal. Hepatopetal flow in the Portal Vein. The liver measures in 18.7 cm length. GALLBLADDER: No evidence of cholelithiasis. No evidence of wall thickening. No pericholecystic fluid identified. There are 2 4 mm nodules which are MLO bile along the wall of the gallbladder likely refl ect small polyps. BILIARY SYSTEM: Common bile duct measures < 7 mm. No intrahepatic biliary ductal dilation. SORIANO'S SIGN: Negative. RIGHT KIDNEY: Kidney is normal in size. No evidence of renal calculi. No evidence of hydronephrosis. No renal mass or cyst identified. ASCITES: None seen. IMPRESSION: 1. Small 4 mm gallbladder polyps. 2. Mildly enlarged liver. 3. Otherwise unremarkable examination. DATA REPOSITORY:
[2023-09-24] MEDS: Omnipaque 350 MG/ML 100 ML BTL IJ ×2 (00:17→02:00)
--- NOTE | 2023-09-24 00:18 | DI.VRAD_ITS ---
PROCEDURE INFORMATION: Exam: CT Head Without And With Contrast Exam date and time: 09/23/2023 10:47 PM Age: 28 years old Clinical indication: Other: Sepsis, iv drug use, back pain, vomiting TECHNIQUE: Imaging protocol: Computed tomography of the head without and with contrast. Radiation optimization: All CT scans at this facility use at least one of these dose optimization techniques: automated exposure control; mA and/or kV adjustment per patient size (includes targeted exams where dose is matched to clinical indication); or iterative reconstruction. Contrast material: OMNIPAQUE 350; Contrast volume: 115 ml; Contrast route: INTRAVENOUS (IV); COMPARISON: CT HEAD WO 09/04/2022 7:07 PM FINDINGS: Brain: No intracranial hemorrhage. No midline shift. No enhancing masses. No significant atrophy. Cerebral ventricles: No hydrocephalus. No gross intraventricular mass. No intracranial hemorrhage. Paranasal sinuses: Mild ethmoid mucosal thickening. No layering fluid in the paranasal sinuses. Mastoid air cells: No significant fluid is observed in the mastoid air cells. Orbital cavities: Unremarkable. Bones/joints: No acute skull fracture. No erosive or destructive bony lesions. Soft tissues: Unremarkable. Vasculature: Negative for dural sinus thrombosis. IMPRESSION: No acute findings. PROCEDURE INFORMATION: Exam: CT Neck With Contrast Exam date and time: 09/23/2023 10:47 PM Age: 28 years old Clinical indication: Other: Sepsis, iv drug use, back pain, vomiting TECHNIQUE: Imaging protocol: Computed tomography of the neck with contrast. Radiation optimization: All CT scans at this facility use at least one of these dose optimization techniques: automated exposure control; mA and/or kV adjustment per patient size (includes targeted exams where dose is matched to clinical indication); or iterative reconstruction. Contrast material: OMNIPAQUE 350; Contrast volume: 115 ml; Contrast route: INTRAVENOUS (IV); COMPARISON: CT BRAIN NECK CTA 09/01/2022 10:37 AM FINDINGS: Oral cavity: Floor of the mouth structures are symmetric and unremarkable. Pharynx: Large palatine tonsils. Adenoid tonsillar tissues are thickened. Normal parapharyngeal fat spaces. Prominent lingular tonsillar tissues are also noted at the base of the tongue. Larynx: Normal epiglottis. Unremarkable larynx. Prevertebral and retropharyngeal spaces: Unremarkable. Salivary glands: Normal. Glands are normal in size. Thyroid: Normal thyroid. No nodules. Lymph nodes: Unremarkable. No lymphadenopathy. Trachea: Normal trachea, as visualized. Lungs: Lung apices are clear. Pleural spaces: No apical pneumothorax. Bones/joints: No significant degenerative changes are observed in the cervical spine. Soft tissues: No abnormal soft tissue fluid collections. IMPRESSION: 1. No soft tissue abscess. 2. No evidence of discitis-osteomyelitis in the cervical spine. 3. Hypertrophy tonsillar tissues. Dictated and Authenticated by: Josiah Corea MD. Ordering:BALDEMAR Hyatt MD
--- NOTE | 2023-09-24 00:19 | DI.VRAD_ITS ---
PROCEDURE INFORMATION: Exam: XR Chest Exam date and time: 09/23/2023 11:46 PM Age: 28 years old Clinical indication: Other: Sepsis TECHNIQUE: Imaging protocol: Radiologic exam of the chest. Views: 1 view. COMPARISON: CT CHEST PE CTA 10/21/2021 6:50 AM FINDINGS: Tubes, catheters and devices: Monitoring wires noted. Lungs: Unremarkable. No consolidation. Pleural spaces: Unremarkable. No pleural effusion. No pneumothorax. Heart/Mediastinum: Unremarkable. No cardiomegaly. Bones/joints: Unremarkable. IMPRESSION: No acute cardiopulmonary abnormality. Dictated and Authenticated by: Josiah Corea MD. Ordering:BALDEMAR Hyatt MD
--- NOTE | 2023-09-24 00:25 | DI.VRAD_ITS ---
PROCEDURE INFORMATION: Exam: CT Thoracic Spine With Contrast Exam date and time: 09/23/2023 11:29 PM Age: 28 years old Clinical indication: Other: Back pain, sepsis, iv drug use TECHNIQUE: Imaging protocol: Computed tomography of the thoracic spine with contrast. Radiation optimization: All CT scans at this facility use at least one of these dose optimization techniques: automated exposure control; mA and/or kV adjustment per patient size (includes targeted exams where dose is matched to clinical indication); or iterative reconstruction. Contrast material: OMNIPAQUE 350; Contrast volume: 100 ml; Contrast route: INTRAVENOUS (IV); COMPARISON: CT LUMBAR SPINE W 09/23/2023 11:29 PM FINDINGS: Bones/joints: No acute fracture. No anterolisthesis or retrolisthesis. Mild disc space narrowing, anterior enthesophytes, and disc bulges are present in the thoracic spine. Narrowing of the spinal canal is observed at T11-T12. Neural foraminal narrowing is also present at T11-T12. There are no endplate erosions. No erosive changes are observed in the facet articular processes. Visualized posterior ribs are unremarkable. Soft tissues: Negative for paraspinal soft tissue fluid collections. Vasculature: The descending thoracic aorta appears normal, without aneurysm, stenosis, or wall thickening. Lungs: Visualized lungs are clear. Pleural spaces: No significant pleural effusion. IMPRESSION: 1. No acute findings. Negative for discitis-osteomyelitis. 2. Degenerative changes are present, advanced for age. 3. Narrowing of the spinal canal and neural foraminal narrowing are particularly noted at T11-T12. Dictated and Authenticated by: Josiah Corea MD. Ordering:BALDEMAR Hyatt MD
[2023-09-24] MEDS: LINEZOLID 600 MG/300 ML BAG 300 MG IVPB ×3 (00:28→23:51)
--- NOTE | 2023-09-24 00:32 | DI.VRAD_ITS ---
Addendum created by Josiah Corea MD on 09/24/2023 12:34:04 AM EST: Findings were discussed with JAM SAUNDERS at 09/24/2023 12:33 AM EST. Initial report created on 09/24/2023 12:32:32 AM EST: PROCEDURE INFORMATION: Exam: CT Lumbar Spine With Contrast Exam date and time: 09/23/2023 11:29 PM Age: 28 years old Clinical indication: Other: Back pain, sepsis, iv drug use TECHNIQUE: Imaging protocol: Computed tomography of the lumbar spine with contrast. Radiation optimization: All CT scans at this facility use at least one of these dose optimization techniques: automated exposure control; mA and/or kV adjustment per patient size (includes targeted exams where dose is matched to clinical indication); or iterative reconstruction. Contrast material: OMNIPAQUE 350; Contrast volume: 100 ml; Contrast route: INTRAVENOUS (IV); COMPARISON: CT THORACIC SPINE W 09/23/2023 11:29 PM FINDINGS: Bones/joints: No acute fracture. No anterolisthesis. Mild degenerative retrolisthesis is noted at L5-S1, 4 mm. Erosions are noted at the L5 inferior endplate, involving the anterior half of the endplate. Foci of gas are present at the L5-S1 disc space. A small depression or erosion is noted at the S1 superior endplate. Please see medical sales representative sagittal image 36 series 15. Disc bulges are present at L2-L3, L3-L4, and L4-L5. No significant facet arthropathy is observed. No erosions are observed in the facet articular processes. Imaging of the spinal canal is limited on CT. Epidural fat spaces remain visible, particularly in sacral canal, normal. No significant spinal canal stenosis is observed, as visualized. Moderate bilateral neural foraminal narrowing is observed at L5-S1. Additional areas of neural foraminal narrowing are likely. The sacroiliac joints are normal. Kidneys and ureters: Normal kidney enhancement. Nondilated ureters. Appendix: A normal appendix is partially visualized. Vasculature: The abdominal aorta appears normal, without aneurysm or dissection. Normal inferior vena cava. Soft tissues: No paraspinal soft tissue fluid collections. Normal symmetric psoas muscles. IMPRESSION: 1. Degenerative changes are present in the spine, advanced for age. 2. Endplate erosions are noted at L5-S1. This may reflect advanced degenerative change. Early discitis-osteomyelitis at L5-S1 is not excluded. 3. No paraspinal abscess. 4. No significant spinal canal stenosis. 5. Neural foraminal narrowing at L5-S1 bilaterally. Dictated and Authenticated by: Josiah Corea MD. Ordering:BALDEMAR Hyatt MD
[2023-09-24 01:08] LABS: Bilirubin Negative (Negative); Blood Negative (Negative); Clarity Clear (Clear); Glucose Negative (Negative); Ketones 15 mg/dL (Negative); Leukocyte Esterase Negative (Negative); Nitrite Negative (Negative); Specific Gravity 1.015 (1.005-1.025); pH 8.5 (5-8)
[2023-09-24 01:48] LABS: Lactate 0.4 mmol/L (0.6-1.4)
[2023-09-24] MEDS: Normal Saline Flush 10 ML SYR IVP ×5 (02:12→21:18)
[2023-09-24] MEDS: Normal Saline - Diluent 50 ML VIAL IJ (02:12)
[2023-09-24 02:20] LABS: Troponin I < 50 ng/L (< or =60)
--- NOTE | 2023-09-24 02:36 | DI.VRAD_ITS ---
PROCEDURE INFORMATION: Exam: CTA Chest With Contrast Exam date and time: 09/24/2023 1:53 AM Age: 28 years old Clinical indication: Abnormal findings; Abnormal diagnostic tests; Elevated d-dimer; Shortness of breath and other: Tachycardic; Patient HX: Short of breath, tachycardiac, + dimer TECHNIQUE: Imaging protocol: Computed tomographic angiography of the chest with contrast. Exam focused on the arteries. 3D rendering (Not supervised by radiologist): MIP and/or 3D reconstructed images were created by the technologist. Radiation optimization: All CT scans at this facility use at least one of these dose optimization techniques: automated exposure control; mA and/or kV adjustment per patient size (includes targeted exams where dose is matched to clinical indication); or iterative reconstruction. Contrast material: OMNIPAQUE 350; Contrast volume: 85 ml; Contrast route: INTRAVENOUS (IV); COMPARISON: CT CHEST PE CTA 10/21/2021 6:50 AM FINDINGS: Pulmonary arteries: No central pulmonary embolism. Evaluation of subsegmental pulmonary arteries is limited by motion artifact. Aorta: Unremarkable. No aortic aneurysm. No aortic dissection. Lungs: No consolidation. No ground-glass opacity. No significant endobronchial mucus. Pleural spaces: Unremarkable. No pneumothorax. No pleural effusion. Heart: No cardiomegaly. No pericardial effusion. No coronary artery calcifications. Lymph nodes: Unremarkable. No enlarged lymph nodes. Bones/joints: Unremarkable. No acute fracture. Soft tissues: Unremarkable. IMPRESSION: 1. Negative for pulmonary embolism. 2. Negative for aortic dissection. 3. No significant pneumonia. Dictated and Authenticated by: Josiah Corea MD. Ordering:BALDEMAR Hyatt MD
--- NOTE | 2023-09-24 04:15 | DI.MRI_ITS ---
Exam(s) MR LUMBAR SPINE WO/W EXAM: MR LUMBAR SPINE WO/W CLINICAL HISTORY: back pain, fever, IVDU. TECHNIQUE: Multiplanar multisequence MRI of the Lumbar spine was performed. COMPARISON: No exams were available for comparison FINDINGS: Conus medullaris is at normal level. There is no evidence of conus mass nor subjacent clumping of in trathecal nerve roots to suggest arachnoiditis. The distal thecal sac is at the upper S1 level.There is no evidence of Tarlov intrasacral cysts nor other significant findings within the sacral canal Bones:There are no fractures nor ominous osseous lesions in the lumbar vertebral bodies and visualize d sacrum. No abnormal intraosseous enhancement. No abnormal disc enhancement. No epidural nor para spinal fluid collections. With respect to the individual levels... T12-L1: Unremarkable L1-2: Normal disc height and signal. No disc herniation nor central canal stenosis.No foraminal steno sis L2-3: Normal disc height. No disc herniation nor central canal stenosis.No foraminal stenosis.No face t arthropathy. L3-4: Normal disc height. Mild central subligamentous disc bulging without a prominent disc herniati on.No central canal stenosis. No foraminal stenosis.No facet arthropathy. L4-5: Normal disc height and signal. Posteriorly there is a central subligamentous disc bulge which indents the anterior thecal sac. Central canal dimensions are lower normal at this level. No forami nal stenosis. No facet arthropathy. L5-S1: This level exhibits mild disc space narrowing and Modic type 2 sub endplate fatty marrow higgins es. There is an anterior disc protrusion at this level subligamentous. Posteriorly there is mild an nular bulging without a significant disc herniation or central canal stenosis. No foraminal stenosis . No significant facet arthropathy. Soft tissues: There is posterior paraspinal signal abnormality and enhancement at L3-S1 levels which is most probably related to inter spinous ligament strain/inflammation. There is no distinct fluid collection at these levels. Clinical correlation recommended. IMPRESSION: 1. No evidence of discitis/osteomyelitis. No evidence of abnormal epidural fluid collection. 2. There is some posterior paraspinal signal abnormality and enhancement in the interspinous ligament level at L3-4-5-S1 which is probably related to inter sub spinous ligament strain or inflammation. DATA REPOSITORY:
--- NOTE | 2023-09-24 04:15 | DI.MRI_ITS ---
Exam(s) MR CERVICAL SPINE WO/W EXAM: MR CERVICAL SPINE WO/W CLINICAL HISTORY: back pain, fever, IVDU TECHNIQUE: Multiplanar multisequence MRI of the cervical spine was performed with both pre and post contrast injected sequences. CONTRAST INJECTED: DOTAREM 18 ML COMPARISON: CT CT CHEST PE CTA from 09/24/2023 FINDINGS: CERVICOMEDULLARY JUNCTION: Intact with no evidence of cerebellar tonsillar ectopia. No obvious abnor mality of the odontoid process. No evidence of Chiari 1 malformation. CERVICAL SPINAL CORD: There is no abnormal signal in nor around the cervical spinal cord and no evide nce of abnormal collection nor enhancement within or around the cervical spinal cord. Also no eviden ce of focal cord atrophy nor focal cord swelling. OSSEOUS:There are no cervical fractures evident. No significant osseous lesions in the cervical vert ebrae. No abnormal intraosseous enhancement. INDIVIDUAL LEVELS: C2-3: No disc herniation nor central canal stenosis. No foraminal stenosis. No facet arthropathy. C3-4: No disc herniation nor central canal stenosis.No facet arthropathy. No foraminal stenosis. C4-5: No disc herniation nor central canal stenosis.No facet arthropathy. No foraminal stenosis C5-6: Normal disc height and signal. No disc herniation or canal stenosis. No foraminal stenosis. No facet arthropathy. C6-7: Normal disc height and signal. No disc herniation or canal stenosis. No foraminal stenosis. No face t arthropathy. C7-T1: No disc herniation nor central canal stenosis. No facet arthropathy.No foraminal stenosis. IMPRESSION: 1. No significant findings on this contrast fused MRI scan of the cervical spine. No evidence of dis c herniation nor canal stenosis and no evidence of infectious process. DATA REPOSITORY:
--- NOTE | 2023-09-24 04:15 | DI.MRI_ITS ---
Exam(s) MR THORACIC SPINE WO/W EXAM: MR THORACIC SPINE WO/W CLINICAL HISTORY: back pain, fever, IVDU TECHNIQUE: Multiplanar multisequence MRI of the thoracic spine was performed both pre and post contr ast infused sequences. Contrast injected was Dotarem 18 mL. COMPARISON: No exams were available for comparison FINDINGS: OSSEOUS: There are no acute appearing thoracic vertebral fractures. There are no ominous osseous les ions in the thoracic vertebrae. THORACIC SPINAL CORD: There is no abnormal signal in the cervical spinal cord and no evidence of foca l cord atrophy nor focal cord swelling. There is no evidence of syringomyelia nor significant spinal cord dysraphism. There is no evidence of mass at the conus medullaris. SIGNIFICANT INDIVIDUAL LEVEL FINDINGS: T9-10: There is a focal left paracentral disc protrusion which indents the thecal sac and contacts th e anterior aspect of the thoracic cord at this level. There is no abnormal signal in the cord at thi s level. No significant central canal stenosis. No significant foraminal stenosis. No abnormal enh ancement at this level. T11-12: There is the posterolateral right disc protrusion at this level which extends posteriorly 5 m m and is 6 mm wide. This indents the lateral right side of the thecal sac at this level but not the spinal cord. Extends into the floor of the exiting right neural foramen but without prominent right- sided foraminal stenosis. The opposite-left neural foramen is widely patent. There is no abnormal e nhancement at this level. EPIDURAL SPACE: No abnormal fluid collections PARASPINAL TISSUES: No significant masses nor fluid collections evident. IMPRESSION: 1. No evidence of discitis, osteomyelitis, nor abnormal paraspinal nor epidural collection. 2. There are disc herniations at T9-T10 and T11-T12 levels as described above. There is no abnormal enhancement at these levels. 3. No abnormality of the thoracic spinal cord evident. DATA REPOSITORY:
--- NOTE | 2023-09-24 06:22 | HPE_ITS ---
Date of service: 09/24/23 Time of Service: 06:23 Assessment and Plan Assessment and plan (1) Discitis of lumbosacral region: Status: Suspected Assessment and plan: high suspicion for lumbosacral osteomyelitis based on hx of IVDA and abnormal CT of LS spine showing endplate erosion of L5-S1 and he is symptomatic for pain in this region along w/ paresthesias in his feet. Blood cultures pending and MRI of his entire spine was ordered by the E.D. provider, Dr. Sterling although CT of Cspine and T spine had no suspicious areas, just the LS spine. Zosyn and Zyvox were begun in the E.D. and I have continued them although usually antibiotics are usually initially witheld pending disc biopsy in order to get a virgin sample to identify the organisms causing discitis. Patient did not meet criteria for sepsis even though this was the E.D. working diagnosis. (both SOFA and qSOFA were scored as zero, he has no endorgan dysfunction from infection other than his HCV and transaminitis (2) Acute low back pain: Status: Acute Assessment and plan: will treat w/ Toradol and low dose Tylenol but need to limit Tyelenol given his hepatitis Qualifiers: Back pain laterality: bilateral Sciatica laterality: bilateral sciatica Sciatica presence: with sciatica Qualified Code(s): M54.42 - Lumbago with sciatica, left side; M54.41 - Lumbago with sciatica, right side (3) Transaminitis: Status: Acute Assessment and plan: heptatis studies were drawn on 09/20 and his acute studies are consistent w/ HCV infection but negative for HBV and HAV. HCV RNA quantitative was very high at 17 million IU/mL. Patient was unaware that he has HCV infection. I have ordered fibrosure test and will get U.S. imaging of his liver. (4) History of intravenous drug abuse: Status: Acute Assessment and plan: history of fentanyl injection which he states he has been weaning himself. (5) Hepatitis C: Status: Acute Assessment and plan: as above Qualifiers: Hepatic coma status: without hepatic coma Viral hepatitis chronicity: c hronic Qualified Code(s): B18.2 - Chronic viral hepatitis C History of Present Illness History of Present Illness Chief Complaint: multiple complaints: martin, chest ache, back pain, vomiting Narrative: 28 yr old male IVDU, alcohol abuse, HCV infection, migraines, presented to ED last night about 10 pm after having been seen on 09/20 and leaving A.M.A. He complains of low back pain which is chronic but has become worse over past few days. At that time he denied any trauma to his spine and had no limb weakness or tingling and no bowel or bladder dysfunction and no fever. Pain was bilateral over lower spine w/ radiation into his right posterior leg. Suspicion was raised for disciitis vs disc herniation and MRI of spine was recommended but patient left against medical advice after he improved w/ toradol, valium for muscle spasms and lidocaine patch and indicated he would prefer to have workup as outpatient. Dr. Hicks conveyed his concerns to patient's PCP, Dr. West Ocampo who agreed to expedite workup as outpatient. Last night he presented to the E.D. w/ chills, vomiting and malaise and dyspnea and expressed feelings of impending doom. He still had no numbness or limb weakness. Workup in the E.D. included labs (CBC, CMP, UA, VBG, d-dimer, PT, aPTT, urine culture and blood culture and imaging including chest CTA, thoracic, cervical and lumbar CT. Labs were remarkable for low K 3.4, elevated A.G. 15.9, transaminitis AST 403, ALT 594, alkaline phosphatase 146 (all higher than on 09/20/23) but normal total biirubin 0.9, CRP 2.64, normal troponin I, procalcitonin 1.0, CBC w/ mild anemia Hb 12.6 w/ normocytic/normochromic values but no leukocytosis (8300 and w/out left shift), ESR 6. Notably no drug screen nor COVID screen were done. CT of head w/o contrast: no acute findings. CT c spine: IMPRESSION: 1. No soft tissue abscess. 2. No evidence of discitis-osteomyelitis in the cervical spine. 3. Hypertrophy tonsillar tissues CTA chest: no PE CT w/ contrast: lumbar spine: IMPRESSION: 1. Degenerative changes are present in the spine, advanced for age. 2. Endplate erosions are noted at L5-S1. This may reflect advanced degenerative change. Early discitis-osteomyelitis at L5-S1 is not excluded. 3. No paraspinal abscess. 4. No significant spinal canal stenosis. 5. Neural foraminal narrowing at L5-S1 bilaterally. CT w/ contrast of T spine: IMPRESSION: 1. No acute findings. Negative for discitis-osteomyelitis. 2. Degenerative changes are present, advanced for age. 3. Narrowing of the spinal canal and neural foraminal narrowing are particularly noted at T11-T12. Patient had blood culture drawn and was started on Zosyn and Zyvox while in the E.D. He is admitted for further evaluation w/ MRI and treatment of his low back pain. 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 Anxiety disorder (Acute) Knee pain, right anterior (Acute ~10/05/22) Migraine headache (Chronic) Opioid abuse (Acute) Pleuritic chest pain (Acute) Shortness of breath (Acute) Pneumonitis (Acute) Hypoxia (Acute) Alcohol abuse (Chronic) E-cigarette or vaping product use associated lung injury (EVALI) (Acute) Smoker (Acute) Restless leg syndrome (Acute) COVID (Acute) Neck pain, chronic (Acute) Medical History Attention deficit hyperactivity disorder, 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) Surgical History History of arthroscopy of knee History of surgical removal of ganglion cyst (05/10/16) Excision of dorsal wrist ganglion cyst, right (05/10/16) Arthroplasty of knee (04/16/12) RIGHT Social History Smoking/Tobacco Use Status: Current every day Tobacco Type: cigarettes Smoking risk assessment performed?: Yes Alcohol Intake: current Alcohol Intake frequency: 3 or more drinks per day Alcohol type: beer Drug use: Daily Substance use type: marijuana Details: 12 pack/day Housing: house Current gender identity: male Do you feel safe at home: Yes Do you feel safe in your relationship?: Yes Additional Social history: Pt reports recovering substance use, no longer using heroin, cocaine. Pt reports no therapy, participated at residential rehab 6 months ag0. Meds Allergies and Home Medications Allergies Allergy/AdvReac Type Severity Reaction Status Date / Time cephalexin [Cephalexin] Allergy Intermediate RASH Unverified 09/20/23 10:33 honey Allergy Mild Hives Unverified 09/20/23 10:33 Home Medications Medication Instructions Recorded Confirmed Type albuterol sulfate 90 mcg/actuation 2 puff inhalation QID PRN 11/16/21 09/24/23 Rx aerosol inhaler (Ventolin HFA) shortness of breath or wheezing #6.7 grams sumatriptan succinate 100 mg tablet See Rx Instructions PO .COMPLEX 03/28/23 09/24/23 Rx #14 tabs topiramate 50 mg tablet (Topamax) 50 mg PO DAILY #30 tabs 03/28/23 09/24/23 Rx Exam Narrative Exam Narrative: Alert and oriented x4 HEENT: Atraumatic normocephalic, pupils equally round reactive to light and accommodation, extraocular motion intact, TMs intact, nares moist and patent without exudate or bleeding, oropharynx noninjected without exudate, teeth in good repair Neck: Supple, nontender, without thyromegaly or lymphadenopathy or JVD. Normal carotid pulses Lungs: Clear to auscultation and percussion Heart: Regular rate and rhythm without murmur rub or gallop. Normal apical impulse Abdomen: Nondistended, normal bowel sounds, nontender to palpation or percussion, no organomegaly, no bruits, no palpable masses Extremities: Normal range of motion with normal strength. No peripheral cyanosis or edema. Normal pulses, both arms have evidence of needle track ortega but no erythema or induration Neurologic: Cranial nerves II through XII grossly within normal limits. Normal strength and sensation over the face trunk and extremities. Results Labs 09/23/23 22:00 09/23/23 22:00 Labs: Laboratory Results - last 24 hr 09/23/23 09/23/23 09/24/23 22:00 23:00 00:40 WBC 8.30 RBC 4.42 Hgb 12.6 L Hct 36.2 L MCV 82 D MCH 28.5 MCHC 34.8 RDW 12.5 Plt Count 176 MPV 9.9 Immature Gran % 0.2 Neutrophils % 70.5 Lymphocytes % 20.5 Monocytes % 7.6 Eosinophils % 1.0 Basophils % 0.2 Nucleated RBC % 0.0 Absolute Neutrophils 5.85 Absolute Lymphocytes 1.70 Absolute Monocytes 0.63 Absolute Eosinophils 0.08 Absolute Basophils 0.02 ESR 6 PT 12.4 H INR 1.3 H APTT 32.5 D-Dimer 885 H VBG pH 7.63 H* VBG pCO2 24 L VBG pO2 26 VBG HCO3 25 VBG Total CO2 22 L VBG O2 Saturation 67 VBG Base Excess 4 H VBG Lactate Sodium 138 Potassium 3.4 L Chloride 98 Carbon Dioxide 24.1 Anion Gap 15.9 H BUN 13 Creatinine 1.0 Est GFR (CKD-EPI 2020) 105.79 Glucose 117 H Calcium 10.2 H Total Bilirubin 0.9 AST 403 H ALT 594 H Alkaline Phosphatase 146 H Troponin I < 50 C-Reactive Protein 2.64 H Total Protein 7.6 Albumin 4.0 Procalcitonin 1.0 Urine Color Yellow Urine Clarity Clear Urine pH 8.5 H Ur Specific [place] 1.015 Urine Protein Trace Urine Ketones 15 H Urine Blood Negative Urine Nitrite Negative Urine Bilirubin Negative Urine Urobilinogen 1.0 H Ur Leukocyte Esterase Negative Urine Glucose Negative COVID-19 Source Nasopharynx SARS-CoV-2 (PCR) Negative 09/24/23 09/24/23 09/24/23 01:40 04:08 07:08 WBC RBC Hgb Hct MCV MCH MCHC RDW Plt Count MPV Immature Gran % Neutrophils % Lymphocytes % Monocytes % Eosinophils % Basophils % Nucleated RBC % Absolute Neutrophils Absolute Lymphocytes Absolute Monocytes Absolute Eosinophils Absolute Basophils ESR PT INR APTT D-Dimer VBG pH VBG pCO2 VBG pO2 VBG HCO3 VBG Total CO2 VBG O2 Saturation VBG Base Excess VBG Lactate 0.4 L Cancelled Cancelled Sodium Potassium Chloride Carbon Dioxide Anion Gap BUN Creatinine Est GFR (CKD-EPI 2020) Glucose Calcium Total Bilirubin AST ALT Alkaline Phosphatase Troponin I < 50 C-Reactive Protein Total Protein Albumin Procalcitonin Urine Color Urine Clarity Urine pH Ur Specific [place] Urine Protein Urine Ketones Urine Blood Urine Nitrite Urine Bilirubin Urine Urobilinogen Ur Leukocyte Esterase Urine Glucose COVID-19 Source SARS-CoV-2 (PCR) Last Vital Signs Temp 36.6 C 09/24/23 05:35 Pulse 71 09/24/23 05:35 Resp 14 09/24/23 05:35 BP 127/81 09/24/23 05:35 Pulse Ox 95 09/24/23 05:35 Time Spent Time spent with Patient: 55-74 minutes Time was spent: preparing to see the patient(eg.review tests), obtaining and/or reviewing separately otained hiistory, ordering medications,tests, procedures, referring, communicating with other health critical care nurse, indepentently interpreting results, counseling the patient and care coordination
[2023-09-24] MEDS: PIPERACILLIN/TAZO 4.5 GM in Normal Saline 100 ML IVPB ×3 (08:49→21:20)
[2023-09-24] MEDS: Topiramate 50 MG TAB PO (08:50)
--- NOTE | 2023-09-24 09:14 | PDOC.CMIN ---
Date of service: 09/24/23 Time of Service: 16:06 Care Management Initial Assmt Initial Assessment REASON FOR HOSPITALIZATION:: Low back pain r/o discitis PREVIOUS FUNCTIONAL STATUS/SOCIAL/FAMILY SUPPORTS:: Vin lives in [place] CURRENT FUNCTIONAL STATUS:: CM attempted 5 times and unable to as Pt was out of the room getting additional workups. ADVANCE DIRECTIVES:: None on file INSURANCE COVERAGE / FINANCIAL ISSUES:: Medicaid of [place] CURRENT HOME/COMMUNITY SERVICES/EQUIPMENT:: None PRIMARY CARE PHYSICIAN:: West Ocampo M.D PATIENT/FAMILY EDUCATION NEEDS:: Review discharge instructions instructions and limitations, Discussion of care needs including Ask Me Three ANTICIPATED BARRIERS TO DISCHARGE:: None identified at this time TRANSPORTATION:: TBD by disposition and mobility PLAN:: Vin will return home. 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 Anxiety disorder (Acute) Knee pain, right anterior (Acute ~10/05/22) Migraine headache (Chronic) Opioid abuse (Acute) Pleuritic chest pain (Acute) Shortness of breath (Acute) Pneumonitis (Acute) Hypoxia (Acute) Alcohol abuse (Chronic) E-cigarette or vaping product use associated lung injury (EVALI) (Acute) Smoker (Acute) Restless leg syndrome (Acute) COVID (Acute) Neck pain, chronic (Acute) Medical History Attention deficit hyperactivity disorder, 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) Surgical History History of arthroscopy of knee History of surgical removal of ganglion cyst (05/10/16) Excision of dorsal wrist ganglion cyst, right (05/10/16) Arthroplasty of knee (09/11/12) RIGHT Social History Smoking/Tobacco Use Status: Current every day Tobacco Type: cigarettes Smoking risk assessment performed?: Yes Alcohol Intake: current Alcohol Intake frequency: 3 or more drinks per day Alcohol type: beer Drug use: Daily Substance use type: marijuana Details: 12 pack/day Housing: house Current gender identity: male Do you feel safe at home: Yes Do you feel safe in your relationship?: Yes Additional Social history: Pt reports recovering substance use, no longer using heroin, cocaine. Pt reports no therapy, participated at residential rehab 6 months ag0. SDOH(Care Management) Screening Will the Patient Participate in the Screening?: Declined to provide
[2023-09-24] MEDS: LORazepam 2 MG/ML VIAL 1 MG IVP (10:57)
[2023-09-24 14:33] LABS: *AMPHETAMINES SCREEN URINE Positive (Negative); *BARBITURATES SCREEN URINE Negative (Negative); *BENZODIAZEPINES SCREEN URINE Negative (Negative); Cannabinoids THC Negative (Negative); Cocaine Screen,Urine Positive (Negative); METHADONE URINE SCREEN Negative (Negative); OPIATES URINE SCREEN Negative (Negative)
[2023-09-24 14:34] LABS: Tricyclic Antidepressants Negative (Negative)
[2023-09-24] MEDS: Gadoterate meglumine 20 ML SYRINGE 18 ML IVP (15:46)
--- NOTE | 2023-09-24 16:57 | PT.INNT ---
PT Notes Visit Reasons: low back pain r/o disciitis Patient unavailable. Per Nurse Johnson, patient is scheduled to have ultrasound and MRI this afternoon. Will attempt evaluation tomorrow morning, as ordered.
--- NOTE | 2023-09-24 18:45 | DI.VRAD_ITS ---
PROCEDURE INFORMATION: Exam: MR Thoracic Spine Without and With Contrast Exam date and time: 09/24/2023 3:24 PM Age: 28 years old Clinical indication: Back pain, fever, ivdu TECHNIQUE: Imaging protocol: Magnetic resonance imaging of the thoracic spine without and with contrast. Contrast material: DOTAREM; Contrast volume: 18 ml; Contrast route: INTRAVENOUS (IV); COMPARISON: CT THORACIC SPINE W 09/23/2023 11:29 PM FINDINGS: Bones/joints: No fracture. Normal alignment. Mild osseous edema noted at the anterior inferior corner of T1, which is nonspecific. There are mild disc osteophyte complexes and mild facet arthropathy seen at the left C6-C7, left T7-T8, left T8-T9 and right T10-T11 levels causing mild neural foraminal narrowing. No severe spinal canal stenosis. Spinal cord: Normal signal. No cord compression. Soft tissues: Unremarkable. IMPRESSION: 1. No evidence of discitis osteomyelitis. 2. Mild degenerative changes as described. Dictated and Authenticated by: Gunjan Dias MD. Ordering:BALDEMAR Hyatt MD
--- NOTE | 2023-09-24 18:51 | DI.VRAD_ITS ---
PROCEDURE INFORMATION: Exam: MR Cervical Spine Without and With Contrast Exam date and time: 09/24/2023 11:58 AM Age: 28 years old Clinical indication: Other: Back pain, fever, ivdu TECHNIQUE: Imaging protocol: Magnetic resonance imaging of the cervical spine without and with contrast. Contrast material: DOTAREM; Contrast volume: 18 ml; Contrast route: INTRAVENOUS (IV); COMPARISON: CT HEAD AND CSPINE W/O CONTRAST 09/25/2016 11:47 AM FINDINGS: Bones/joints: Unremarkable. No fracture. Normal alignment. No abnormal enhancement. Spinal cord: Normal signal. No cord compression. C2-C3: No significant disc bulge or herniation. No severe spinal canal stenosis. No significant neural foraminal narrowing. C3-C4: No significant disc bulge or herniation. No severe spinal canal stenosis. No significant neural foraminal narrowing. C4-C5: No significant disc bulge or herniation. No severe spinal canal stenosis. No significant neural foraminal narrowing. C5-C6: No significant disc bulge or herniation. No severe spinal canal stenosis. No significant neural foraminal narrowing. C6-C7: No significant disc bulge or herniation. No severe spinal canal stenosis. No significant neural foraminal narrowing. C7-T1: No significant disc bulge or herniation. No severe spinal canal stenosis. No significant neural foraminal narrowing. Soft tissues: Unremarkable. IMPRESSION: No evidence of infection in the cervical spine. Dictated and Authenticated by: Gunjan Dias MD. Ordering:BALDEMAR Hyatt MD
--- NOTE | 2023-09-24 19:01 | DI.VRAD_ITS ---
PROCEDURE INFORMATION: Exam: MR Lumbar Spine Without and With Contrast Exam date and time: 09/24/2023 11:25 AM Age: 28 years old Clinical indication: Other: Back pain, fever, ivdu TECHNIQUE: Imaging protocol: Magnetic resonance imaging of the lumbar spine without and with contrast. Contrast material: DOTAREM; Contrast volume: 18 ml; Contrast route: INTRAVENOUS (IV); COMPARISON: CT LUMBAR SPINE W 09/23/2023 11:29 PM FINDINGS: Bones/joints: No fracture. Normal alignment. Spinal cord: Visualized cord, conus medullaris and cauda equina are unremarkable without compression. L1-L2: No significant disc bulge or herniation. No severe spinal canal stenosis. No significant neural foraminal narrowing. L2-L3: There is mild disc bulging causing mild bilateral neural foraminal narrowing. No significant spinal canal stenosis. L3-L4: There is mild disc bulging and mild bilateral facet arthropathy noted causing mild left neural foraminal narrowing. No significant spinal canal stenosis. L4-L5: Is mild disc bulging and bilateral facet arthropathy causing mild to moderate bilateral neural foraminal narrowing. No significant spinal canal stenosis. L5-S1: There is prominent degenerative disc disease at this level with retrolisthesis of L5-S1 and endplate osseous changes. There is bilateral facet arthropathy noted. There is moderate bilateral neural foraminal narrowing. No significant spinal canal stenosis. Prominent epidural fat is noted at this level. Soft tissues: There is posterior paraspinal edema and enhancement noted at the L3-S1 levels likely secondary to facet arthropathy and interspinous ligament strain/inflammation. IMPRESSION: 1. Mild to moderate multilevel degenerative changes. 2. Posterior paraspinal enhancement and edema at L3-S1 likely secondary to facet arthropathy and interspinous ligament strain/inflammation. Clinical correlation recommended. 3. No evidence of discitis osteomyelitis. Dictated and Authenticated by: Gunjan Dias MD. Ordering:BALDEMAR Hyatt MD
[2023-09-24] MEDS: Ketorolac 15 MG/ML VIAL IVP (21:12)
[2023-09-24] MEDS: Acetaminophen 325 MG TAB PO (21:18)
[2023-09-25] MEDS: PIPERACILLIN/TAZO 4.5 GM in Normal Saline 100 ML IVPB ×2 (03:58→12:39)
[2023-09-25 07:56] VITALS: BP 134/82; PULSE 74; RESP 20; TEMP 36.2; O2SAT 100
[2023-09-25] MEDS: Normal Saline Flush 10 ML SYR IVP (08:05)
[2023-09-25] MEDS: Topiramate 50 MG TAB PO (08:05)
[2023-09-25 10:40] LABS: Abs Immature Grans 0.01 10^3/uL (0.0-0.06); Absolute Basophil Count 0.02 10^3/uL (0.0-0.2); Absolute Eosinophil Count 0.15 10^3/uL (0.0-0.7); Absolute Lymphocyte Count 1.23 10^3/uL (1.2-3.4); Absolute Monocyte Count 0.27 10^3/uL (0.1-0.8); Absolute Neutrophil Count 2.21 10^3/uL (1.2-6.7); Basophils % 0.5; Eosinophils % 3.9; HCT 40.7 % (40.0-50.0); HGB 13.6 g/dL (13.5-17.5); Immature Grans % 0.3; Lymphocytes % 31.6; MCH 28.1 pg (27.0-33.0); MCHC 33.4 % (32.0-36.0); MCV 84 fL (80-95); MPV 9.5 fL (8.0-11.0); Monocytes % 6.9; Neutrophils % 56.8; Platelet Count 177 10^3/uL (130-400); RBC 4.84 10^6/uL (4.36-5.78); RDW 13.2 % (11.8-14.1); RDW-SD 40.6 fL; WBC 3.89 10^3/uL (4.4-10.8)
--- NOTE | 2023-09-25 10:49 | IN_ITS ---
PT Notes Visit Reasons: low back pain r/o disciitis Physical Therapy Inpatient Initial Evaluation Date: 09/25/2023 Referring Doctor: John Snyder MD PT Orders: PT CONSULT: D/C Non PT Dependent Precautions: Fall. Standard. Activity as tolerated. Patient Profile/Admitting Diagnosis: Patient is a 28-year-old male patient recently with COVID who presented to the ED with low back pain, diffuse body aches, chills, nausea, vomitting, and SOB. Patient was admitted to [facility] for medical management of acute LBP, transaminitis, history of IV drug use, and hepatitis C. Further imaging was done to rule out discitis and osteomyelitis. Cervical Spine MRI 09/24/2022: 1. No significant findings on this contrast fused MRI scan of the cervical spine. No evidence of disc herniation nor canal stenosis and no evidence of infectious process. Thoracic Spine MRI: 1. No evidence of discitis, osteomyelitis, nor abnormal paraspinal nor epidural collection. 2. There are disc herniations at T9-T10 and T11-T12 levels as described above. There is no abnormal enhancement at these levels. 3. No abnormality of the thoracic spinal cord evident. Lumbar Spine MRI 09/24/2022: 1. No evidence of discitis/osteomyelitis. No evidence of abnormal epidural fluid collection. 2. There is some posterior paraspinal signal abnormality and enhancement in the interspinous ligament level at L3-4-5-S1 which is probably related to inter sub spinous ligament strain or inflammation. 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 Anxiety disorder (Acute) Knee pain, right anterior (Acute ~10/05/22) Migraine headache (Chronic) Opioid abuse (Acute) Pleuritic chest pain (Acute) Shortness of breath (Acute) Pneumonitis (Acute) Hypoxia (Acute) Alcohol abuse (Chronic) E-cigarette or vaping product use associated lung injury (EVALI) (Acute) Smoker (Acute) Restless leg syndrome (Acute) COVID (Acute) Neck pain, chronic (Acute) Medical History Attention deficit hyperactivity disorder, 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 Independent with all aspects of ADLs prior to admission. 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 Equipment Owned/DME: None Subjective: Reports 5-6/10 pain in the lower middle back area at rest and with weight bearing. Reported that on admission tingling in feet were worse with weight bearing, however did not report any during today's short walk. Objective: General Observation: Supine in bed. Mental Status: Alert and oriented as to person, place, time, and purpose. Able to pay attention, focus, and respond appropriately. Pain: As above Vital Signs: Closely monitored by nursing staff PALPATION: Lower thoracic through lumbar and sacral paraspinals tender to palpation, tenderness more pronounced at lower lumbar and upper sacral areas bilaterally. ROM: Right Upper Extremity: Shoulder Flexion WFL. Shoulder abduction WFL. Elbow flexion WFL. Wrist flexion WFL. Functional opening and closing of hand WFL. Left Upper Extremity: Shoulder Flexion WFL. Shoulder abduction WFL. Elbow flexion WFL. Wrist flexion WFL. Functional opening and closing of hand WFL. Right Lower Extremity: Hip flexion WFL. Hip abduction WFL. Knee flexion WFL. Ankle dorsiflexion WFL. Ankle plantarflexion WFL. Left Lower Extremity: Hip flexion WFL. Hip abduction WFL. Knee flexion WFL. Ankle dorsiflexion WFL. Ankle plantarflexion WFL. Strength: Right Upper Extremity: Shoulder flexors 5/5. Shoulder abductors 5/5. Elbow flexors 5/5. Elbow extensors 5/5. Chain Builder Loom Control strong. Left Upper Extremity: Shoulder flexors 5/5. Shoulder abductors 5/5. Elbow flexors 5/5. Elbow extensors 5/5. Chain Builder Loom Control strong. Right Lower Extremity: Hip flexors 4/5. Hip abductors 4/5. Knee flexors 4/5. Knee extensors 4/5. Ankle dorsiflexors 5/5. Ankle plantarflexors 5/5. Left Lower Extremity: Hip flexors 5/5. Hip abductors 5/5. Knee flexors 5/5. Knee extensors 5/5. Ankle dorsiflexors 5/5. Ankle plantarflexors 5/5. Bed Mobility/Transfers: Rolling independent Supine to sit independent Sit to supine independent Sit to stand independent Stand to sit independent Gait: Modified independent using no assistive device but with antalgic gait and with trunk in a flexed position. Report of 5-6/10 pain in low back. Needed to hol onto wall for support. Refused further walking as SO and sons arrived. Agreeable to walking later with trial of an assistive device. Balance: Static Sitting: Normal Dynamic Sitting: Good Static Standing: Fair Dynamic Standing: Fair Special Tests: Mobility Limitations Standardized Measure [facility] 6 clicks Basic Mobility Inpatient Short Form: Raw Score: 24 CMS Score: 0% deficit SLR: Negative on L, 4-5/10 pain in low back at end range only on the R FABERE Test: Negative on B sides Slump Test: Negative Informed Consent/Education: Patient was instructed in purpose of PT consult and plan of care. Agreeable to proceed with established PT POC to achieve personal goals. ASSESSMENT: Lumbar and sacral paraspinal muscle sprain and lumbar and sacral interspinous ligament sprain alongside ongoing degenerative joint changes through spine limit ability to safely and efficiently walk. Will look at providing and AD to assist with off-loading spine while inflammatroy process/arthritic process takes its course. Patient will benefit from outpatient PT for continued back rehab to facilitate return to ADLs/vocation. Patient presents with clinical signs and symptoms consistent with current/admitting diagnoses that have resulted to mobility limitations, gait instability, generalized weakness, and overall ADL decline as demonstrated by the following impairment level findings: 1. Decreased strength to lumbar paraspinals, erector spinae 2. Impaired sitting/standing balance 3. Impaired activity tolerance 4. Limitation of joint range of motion in low back 5. Acute pain in back Impairments are contributing to the following functional limitations: 1. Difficulty with ambulation without assistive device 2. Increased completion time for mobility ADL performance 3. Increased risk for falls 4. Difficulty with managing steps alone safely Patient is assessed as a 90128 low complexity based on the following: History: 28-year-old male with past medical history as indicated above Examination: Demonstrable impairment in strength, balance, and mobility level with underlying impairments and functional limitations as exhibited above Presentation: Stable Decision Makin low complexity Goals: 1. Independent gait on level surface with use of least restrictive device for at least 300 feet without report of pain nor dyspnea 2. Independent stair negotiation while holding onto B rails for at least 5 steps without report of pain nor dyspnea 3. Independent with home exercise program Plan of Care/Treatment Plan: Plan to see patient for one more session for AD use and HEP training. Plan of care has been reviewed with the [employer] providing the service under Physical Therapy direction. Initiate Physical Therapy intervention for pain management as needed, strengthening, bed mobility, transfers, gait, stairs, balance training, and use of assistive device. DISCHARGE RECOMMENDATIONS: [] Home with no services [] [] Home with services [specify] [X] Home with outpatient PT. [] SNF for continued rehabilitation [] [] [facility] Officer [facility] [] [] SNF versus LTC based on ability to participate and progress [] TREATMENT CODE/TIME: 16184 x 15 minutes for 1 unit, 00205 x 16 minutes for 1 unit (10:27-11:03). Thank you for the opportunity to participate in the care of this patient. Rita Sheridan PT, DPT, CLT [facility] [place], [place]
[2023-09-25 10:51] LABS: BUN 13 mg/dL (7-18); C-Reactive Protein 1.72 mg/dL (<or=0.5); Calcium 9.5 mg/dL (8.5-10.1); Chloride 104 mmol/L (98-107); Estimated GFR 105.79 (mL/min/1.73m2); Glucose 120 mg/dL (74-106); Magnesium 1.9 mg/dL (1.8-2.4); Potassium 3.4 mmol/L (3.5-5.1); Sodium 139 mmol/L (136-145)
[2023-09-25] MEDS: LINEZOLID 600 MG/300 ML BAG 300 MG IVPB (11:25)
[2023-09-25 11:34] LABS: Lab Add On Test DONE
[2023-09-25] MEDS: Potassium Chloride 20 MEQ TABCR 40 MEQ PO (11:46)
[2023-09-25 12:06] LABS: Procalcitonin 0.4 ng/mL
--- NOTE | 2023-09-25 12:09 | NUR.NOTE ---
cc was notified that patient stated they are detoxing.
--- NOTE | 2023-09-25 14:42 | PT.INTREAT ---
PT Notes Visit Reasons: low back pain r/o disciitis Physical Therapy Inpatient Treatment Note Date: 09/25/2023 Precautions: Fall. Standard. Activity as tolerated. Subjective: Reports 6-7/10 pain in the lower middle back area at rest and with walking. Reported lightheadedness at end of walk. Nurse Elizabeth aware. Objective: General Observation: Supine in bed. Mental Status: Alert and oriented as to person, place, time, and purpose. Able to pay attention, focus, and respond appropriately. Pain: As above Vital Signs: Closely monitored by nursing staff PALPATION: Lower thoracic through lumbar and sacral paraspinals tender to palpation, tenderness more pronounced at lower lumbar and upper sacral areas bilaterally. Bed Mobility/Transfers: Rolling independent Supine to sit independent Sit to supine independent Sit to stand independent Stand to sit independent Gait: Covered a distance of 150 feet + 150 feet using FWW with trunk in protected flexed position as he states that this is the position of comfort for him. 7/10 pain in the low back. Mildly lightheaded and short of breath at end of walk with HR at 125 bpm, BP 123/88 mmHg, and oxygen saturation at 100% on RA. Balance: Static Sitting: Normal Dynamic Sitting: Good Static Standing: Fair Dynamic Standing: Fair ASSESSMENT: Lumbar and sacral paraspinal muscle strain and lumbar and sacral interspinous ligament sprain alongside ongoing degenerative joint changes through spine limit ability to safely and efficiently walk. Patient performed safer and tolerated a longer distance of level surface walking using a FWW. Patient will benefit from outpatient PT for continued back rehab to facilitate return to ADLs/vocation. Plan of Care/Treatment Plan: Plan to see patient for 2-3 sessions more AD use and HEP training. Plan of care has been reviewed with the [employer] providing the service under Physical Therapy direction. Initiate Physical Therapy intervention for pain management as needed, strengthening, bed mobility, transfers, gait, stairs, balance training, and use of assistive device. DISCHARGE RECOMMENDATIONS: [] Home with no services [] [] Home with services [specify] [X] Home with outpatient PT. [] SNF for continued rehabilitation [] [] Correction Care [] [] SNF versus LTC based on ability to participate and progress [] TREATMENT CODE/TIME: 75076 x 27 minutes for 2 units (14:42-15:09).
[2023-09-25 15:10] VITALS: BP 126/83; PULSE 108; RESP 20; TEMP 35.9; O2SAT 100
[2023-09-25] MEDS: LORazepam 2 MG/ML VIAL 1 MG IVP (16:07)
--- NOTE | 2023-09-25 16:47 | PDOC.CMIN ---
Date of service: 09/25/23 Time of Service: 16:47 Care Management Initial Assmt Initial Assessment REASON FOR HOSPITALIZATION:: low back pain, r/o discitis PREVIOUS FUNCTIONAL STATUS/SOCIAL/FAMILY SUPPORTS:: Vin lives in [facility], with a friend. 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 CURRENT FUNCTIONAL STATUS:: Vin was lying in bed when CM met with him. He reported that he is not doing great at the moment, due to back pain. 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 He stated that he is looking forward to returning home. reported that [facility] spine surgery and ID will be consulted to determine the next step in his plan, and stated that he may require IV antibiotics for a prolonged period of time. CM emailed the court today, at Vin's request, as he missed a hearing while in the hospital. CM will continue to follow. ADVANCE DIRECTIVES:: Not on file. Has patient been provided with info about the portal/API?: Yes Did the patient sign up for the portal?: Yes CODE STATUS:: Full Code INSURANCE COVERAGE / FINANCIAL ISSUES:: [employer] CURRENT HOME/COMMUNITY SERVICES/EQUIPMENT:: None PRIMARY CARE PHYSICIAN:: [place] POTENTIAL DISCHARGE NEEDS:: Follow up appointments. PATIENT/FAMILY EDUCATION NEEDS:: Review discharge instructions and limitations, discussion of self care needs including ask me three. ANTICIPATED BARRIERS TO DISCHARGE:: None identified. TRANSPORTATION:: Via private vehicle PLAN:: Anticipate Vin will return home once medically cleared. If he requires long-term IV antibiotic therapy, his plan of care may change. He will be driven home via private vehicle by family. He will follow up with his PCP and discharge plan of care. CM will continue to follow. 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 Anxiety disorder (Acute) Knee pain, right anterior (Acute ~10/05/22) Migraine headache (Chronic) Opioid abuse (Acute) Pleuritic chest pain (Acute) Shortness of breath (Acute) Pneumonitis (Acute) Hypoxia (Acute) Alcohol abuse (Chronic) E-cigarette or vaping product use associated lung injury (EVALI) (Acute) Smoker (Acute) Restless leg syndrome (Acute) COVID (Acute) Neck pain, chronic (Acute) Medical History Attention deficit hyperactivity disorder, 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) Surgical History History of arthroscopy of knee History of surgical removal of ganglion cyst (05/10/16) Excision of dorsal wrist ganglion cyst, right (05/10/16) Arthroplasty of knee (04/16/12) RIGHT Social History Smoking/Tobacco Use Status: Current every day Tobacco Type: cigarettes Smoking risk assessment performed?: Yes Alcohol Intake: current Alcohol Intake frequency: 3 or more drinks per day Alcohol type: beer Drug use: Daily Substance use type: marijuana Details: 12 pack/day Housing: house Current gender identity: male Do you feel safe at home: Yes Do you feel safe in your relationship?: Yes Additional Social history: Pt reports recovering substance use, no longer using heroin, cocaine. Pt reports no therapy, participated at residential rehab 6 months ag0. SDOH(Care Management) Screening Will the Patient Participate in the Screening?: Declined to provide
--- NOTE | 2023-09-25 16:52 | W.PM.DS.N ---
Date of service: 09/25/23 Time of Service: 16:52 DS: Diagnosis Discharge Diagnosis (1) Osteomyelitis of lumbar vertebra: Status: Acute (2) Acute low back pain: Status: Acute (3) Thoracic disc herniation: Status: Acute Asessment and Plan: T9-T10, T10-T11 (4) Transaminitis: Status: Acute (5) History of intravenous drug abuse: Status: Acute (6) Hepatitis C: Status: Acute (7) Hypokalemia: Status: Acute (8) Gallbladder polyp: Status: Acute Asessment and Plan: Will need outpatient follow up Discharge Plan Disposition Patient Disposition: Against Medical Advice Condition: Fair Discharge Details Reason For Visit: low back pain r/o disciitis Admit Date/Time: 09/24/23 04:14 Admit Provider: John Snyder Attending Provider: John Snyder Primary Care Provider: [facility] Ocampo Hospital Course Hospital Course: Mr Admae is a 28 year old male with PMHx of IVD use/polysubstance abuse, Hepatitis C, migraine headaches, RLS, who was a patient on [facility] hospitalist service from 09/24/23 until 09/25/23, when he is leaving [facility], having presented with back pain. His workup in the ED included a markedly elevated procalcitonin (1.0), a CT of lumbar spine which showed an irregularity of the cortex of the inferior endplate of L4 and superior endplate of S1, possibly representing erosions vs spondylodiscitis vs degenerative changes. There were no fluid collections seen and no central canal stenosis. Given h/o IVD, the patient was started on zosyn + linezolid. With this therapy, he markedly improved, as did his procalcitonin and CRP. MRI of cervical, thoracic, and lumbar spine was performed. MRI thoracic spine revealed disc herniations at T9-T10 and T11-12. MRI lumbar spine revealed no epidural collections, but there was some posterior paraspinal signal abnormality and enhancement in the interspinous ligament level L3-4-5-S1, strain vs inflammation. I did review this [place] with [facility] [place], however, who actually did see erosion of the inferior end plate of L5, which given the patient's age was NOT consistent with degenerative changes, raising a significant concern for vertebral osteomyelitis. Vin is electing to leave [facility]; however, I am prescribing him 6 weeks of linezolid in hopes that he will complete outpatient therapy. Ideally, he would have sampling of the vertebra for culture. His blood cultures here were negative. Incidentally discovered gallbladder polyp will need outpatient follow up. I do feel that his PCP should encourage him to complete his therapy. Care for patient, discussion of his care, as well as completion of his discharge paperwork on the day he left [facility] took 60 minutes. Home Meds and New Rx's Prescriptions: New linezolid 600 mg tablet 600 mg PO Q12H Qty: 84 0RF No Action topiramate [Topamax] 50 mg tablet 50 mg PO DAILY Qty: 30 2RF sumatriptan succinate 100 mg tablet See Rx Instructions PO .COMPLEX Qty: 14 3RF Rx Instructions: take 1 tab at onset of headache; if no relief, may repeat 1 tab after at least 2 hrs; max = 2 tabs/24 hrs PO albuterol sulfate [Ventolin HFA] 90 mcg/actuation HFA aerosol inhaler 2 puff inhalation QID PRN (Reason: shortness of breath or wheezing) Qty: 6.7 3RF Discharge Instructions Instructions: Linezolid (By mouth), Osteomyelitis (DC) Additional Instructions: Finish your antibiotics as prescribed. Follow up with your PCP in 1-2 weeks. Referrals: West Ocampo MD [Primary Care Provider] - Activity:: Activity as Tolerated Equipment/Supplies:: No Equipment Needed Diet:: As Tolerated Discharge Orders Discharge Orders: Discharge Order (Routine); Ordered 09/25/23 Ordered By: Krysta Reza Discharge Data Discharge Date/Time-TO BE ENTERED AT DEPARTURE: 09/25/23 17:00 DS: Summary Time Spent with Patient providing and/or coordinating discharge services: Greater than 30 minutes Status at Discharge Functional status at discharge: independent ambulation Overall status at discharge: patient is progressing back to baseline Mental Status: mental status grossly normal Speech and Movement: speech and movement normal Mood: anxious mood Affect: anxious affect Quality:SDOH Health Related Social Needs: No Data to Display Exam Narrative Exam Narrative: General: Pleasant anxious male, A&Ox3, anxious HEENT: EOMI, MMM Heart: RRR, tachycardic Lungs: CTAB Abdomen: soft, nontender, nondistended Extremities: preserved strength in BLEs Psych Mental Status: mental status grossly normal Speech and Movement: speech and movement normal Mood: anxious mood Affect: anxious affect DS: Data Vitals/I&O Vitals and I&O: Vital Signs Temperature 35.9 C L 09/25/23 15:10 Temperature Source Tympanic 09/25/23 15:10 Pulse 108 H 09/25/23 15:10 Pulse Rhythm Regular 09/25/23 08:35 Pulse 76 09/24/23 05:01 Respiratory Rate 20 09/25/23 15:10 Respiratory Effort Normal, Non-Labored 09/25/23 08:35 Respiratory Depth Normal 09/25/23 08:35 Respiratory Pattern Normal 09/25/23 08:35 Blood Pressure 126/83 09/25/23 15:10 Blood Pressure Mean 85 09/24/23 05:01 Blood Pressure Position Supine 09/23/23 21:55 Pulse Oximetry 100 09/25/23 15:10 Oxygen Delivery Method Room Air 09/25/23 15:10 Oxygen Flow Rate 0 09/25/23 15:10 Pain Level 8 09/25/23 16:07 Comment pain 6 back and feet 09/25/23 07:56 Intake & Output 09/24/23 09/25/23 09/25/23 23:59 11:59 23:59 Intake Total 322.917 / 1822.917 860 / 1160 300 / 1160 Output Total 0 / 0 Balance 322.917 / 1822.917 860 / 1160 300 / 1160 Weight 83.234 kg Intake: IV 322.917 / 1822.917 500 / 800 300 / 800 Oral 360 / 360 Output: Urine 0 / 0 Other: Urine Appearance Clear Clear Clear Urine Odor Normal Comment Voiding independently Voiding Methods Toilet Data Completed and Pending Completed studies during hospitalization [Text1]: CXR: 09/23/23: No acute pulmonary findings. CT lumbar spine 09/23/23: 1. There is irregularity of the cortex of the inferior endplate of L5 and the superior endplate of S1. These may represent erosions. Spondylodiscitis should be considered. Degenerative changes should also be considered. 2. Degenerative changes at L4-5 and L5-S1 resulting in mild narrowing of the neural foramen bilaterally. 3. No significant central spinal canal stenosis. 4. No definite enhancing fluid collections are seen to suggest an abscess at this time. CT thoracic spine: 1. No findings of spondylo discitis. 2. Degenerative changes in the thoracic spine. CT head/neck: 1. No acute intracranial process. 2. No findings to suggest spondylo discitis in the cervical spine. No focal fluid collection to suggest an abscess. 3. Hypertrophy of the adenoids. US abdomen; 1. Small 4 mm gallbladder polyps. 2. Mildly enlarged liver. 3. Otherwise unremarkable examination. CT chest :No evidence of pulmonary embolism, thoracic aortic dissection or aneurysm. MRI c/spine w/w/o contrast: 1. No significant findings on this contrast fused MRI scan of the cervical spine. No evidence of disc herniation nor canal stenosis and no evidence of infectious process. MRI lumbar spine w/w/o contrast: 1. No evidence of discitis/osteomyelitis. No evidence of abnormal epidural fluid collection. 2. There is some posterior paraspinal signal abnormality and enhancement in the interspinous ligament level at L3-4-5-S1 which is probably related to inter sub spinous ligament strain or inflammation. MRI thoracic spine w/w/o contrast: 1. No evidence of discitis, osteomyelitis, nor abnormal paraspinal nor epidural collection. 2. There are disc herniations at T9-T10 and T11-T12 levels as described above. There is no abnormal enhancement at these levels. 3. No abnormality of the thoracic spinal cord evident. Labs on day of discharge: Labs from last 24 hours 09/25/23 09/25/23 09/24/23 11:34 10:10 06:34 WBC 3.89 L RBC 4.84 Hgb 13.6 Hct 40.7 MCV 84 MCH 28.1 MCHC 33.4 RDW 13.2 Plt Count 177 MPV 9.5 Immature Gran % 0.3 Neutrophils % 56.8 Lymphocytes % 31.6 Monocytes % 6.9 Eosinophils % 3.9 Basophils % 0.5 Nucleated RBC % 0.0 Absolute Neutrophils 2.21 Absolute Lymphocytes 1.23 Absolute Monocytes 0.27 Absolute Eosinophils 0.15 Absolute Basophils 0.02 Sodium 139 Potassium 3.4 L Chloride 104 Carbon Dioxide 27.0 Anion Gap 8.0 BUN 13 Creatinine 1.0 Est GFR (CKD-EPI 2020) 105.79 Glucose 120 H Calcium 9.5 Magnesium 1.9 C-Reactive Protein 1.72 H Procalcitonin 0.4 COVID-19 Source Cancelled SARS-CoV-2 (PCR) Cancelled Influenza Type A (PCR) Cancelled Influenza Type B (PCR) Cancelled RSV (PCR) Cancelled Add-On Test Request DONE Preliminary micro results at discharge 09/24/23 00:40 Urine Culture - Preliminary Urine - Voided 09/23/23 22:53 Blood Culture - Preliminary Blood NO GROWTH 24 HOURS 09/23/23 22:39 Blood Culture - Preliminary Blood NO GROWTH 24 HOURS PFSH All Active Problems (Updated 09/25/23 @ 17:27 by Krysta Reza MD) Gallbladder polyp (Acute) Osteomyelitis of lumbar vertebra (Acute) Thoracic disc herniation (Acute) Hypokalemia (Acute) Hepatitis C (Acute) Sepsis (Acute) Back pain (Acute) Thrombocytopenia (Chronic) Hypernatremia (Acute) Anemia (Chronic) Transaminitis (Acute) CRP elevated (Acute) Acute low back pain (Acute) History of intravenous drug abuse (Acute) 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 Anxiety disorder (Acute) Knee pain, right anterior (Acute ~10/05/22) Migraine headache (Chronic) Opioid abuse (Acute) Pleuritic chest pain (Acute) Shortness of breath (Acute) Pneumonitis (Acute) Hypoxia (Acute) Alcohol abuse (Chronic) E-cigarette or vaping product use associated lung injury (EVALI) (Acute) Smoker (Acute) Restless leg syndrome (Acute) COVID (Acute) Neck pain, chronic (Acute) Medical History Attention deficit hyperactivity disorder, 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) Surgical History History of arthroscopy of knee History of surgical removal of ganglion cyst (05/10/16) Excision of dorsal wrist ganglion cyst, right (05/10/16) Arthroplasty of knee (04/16/12) RIGHT Social History Smoking/Tobacco Use Status: Current every day Tobacco Type: cigarettes Smoking risk assessment performed?: Yes Alcohol Intake: current Alcohol Intake frequency: 3 or more drinks per day Alcohol type: beer Drug use: Daily Substance use type: marijuana Details: 12 pack/day Housing: house Current gender identity: male Do you feel safe at home: Yes Do you feel safe in your relationship?: Yes Additional Social history: Pt reports recovering substance use, no longer using heroin, cocaine. Pt reports no therapy, participated at residential rehab 6 months ag0. Time Spent with Patient Time Spent with Patient: 45-69 minutes Time was spent: preparing to see the patient(eg.review tests), obtaining and/or reviewing separately otained hiistory, ordering medications,tests, procedures, referring, communicating with other health career technical education instructor, indepentently interpreting results, counseling the patient and care coordination
[2023-09-25 20:49] LABS: ALT 433 U/L (7-55); ActiTest Grade A3; ActiTest Interpretation severe activity; ActiTest Score 0.93; Alpha-2-Macroglobulin 162 mg/dL (100 - 280); Apoliprotein A1 74 mg/dL (>=120); Bilirubin, Total 0.8 mg/dL (0.0 - 1.2); FibroTest Interpretation no fibrosis; FibroTest Score 0.23; FibroTest Stage F0-F1; GGT 28 U/L (8 - 61); Haptoglobin 153 mg/dL (30 - 200)
--- NOTE | 2023-09-26 16:50 | CMPROGNOTE_ITS ---
Date of service: 09/26/23 Time of Service: 16:52 Care Management Progress Note Progress Note Text Progress Note Text: SHEYLA received a call from Vin today regarding his medication. At discharge a prescription for Linezolid was sent to [facility]. When he went to the pharmacy to pick it up, was told that it needed prior authorization. Upon investigation, it appears the prior auth process had already started. Additional information was faxed to the Pharmacy . CM contacted the pharmacy to ensure that the medication is available for pickup and learned that they do not have any in stock but that it will be delivered to the store early tomorrow morning. CM a ttempted to reach Vin by phone to inform him however he did not answer and voice mail had not been set up. CM will attempt to reach him again tomorrow. SDOH(Care Management) Screening Will the Patient Participate in the Screening?: Declined to provide
--- NOTE | 2023-09-26 17:49 | PDOC.CMPRO ---
Date of service: 09/26/23 Time of Service: 17:49 Care Management Progress Note Progress Note Text Progress Note Text: CM was able to reach Vin by phone and informed him that his medication will be at the pharmacy early tomorrow morning and that he will not have a copay. He expressed relief as he stated he has been worried about not having the medication to treat his infection. SDOH(Care Management) Screening Will the Patient Participate in the Screening?: Declined to provide
== END 2023-09-25 17:00 | disposition left against medical advice (07) ==
LOC: ER 09-24 05:28 → MS 09-24 12:23
PROVIDERS: Internal Medicine; Admitting Provider Internal Medicine; Emergency Provider Student in an Organized Health Care Education/Training Program; PCP Family Medicine; Visit Provider Internal Medicine
DX: M46.26 Osteomyelitis of vertebra, lumbar region (principal); F19.10 Other psychoactive substance abuse, uncomplicated; R74.01 Elevation of levels of liver transaminase levels; B18.2 Chronic viral hepatitis C; M51.24 Other intervertebral disc displacement, thoracic region; M47.815 Spondylosis without myelopathy or radiculopathy, thoracolumbar region; E87.6 Hypokalemia; K82.4 Cholesterolosis of gallbladder; R20.2 Paresthesia of skin; F10.10 Alcohol abuse, uncomplicated; R11.11 Vomiting without nausea; R68.83 Chills (without fever); R06.00 Dyspnea, unspecified; D64.9 Anemia, unspecified; D69.6 Thrombocytopenia, unspecified; M22.41 Chondromalacia patellae, right knee; F41.9 Anxiety disorder, unspecified; G43.909 Migraine, unspecified, not intractable, without status migrainosus; R09.02 Hypoxemia; U07.0 Vaping-related disorder; F17.210 Nicotine dependence, cigarettes, uncomplicated; G25.81 Restless legs syndrome; F12.90 Cannabis use, unspecified, uncomplicated; F11.11 Opioid abuse, in remission
CPT/HCPCS: 00123; 36410; 36415; 70491; 71275; 72158; 80048; 80053; 80307; 81596; 82805; 84145; 85652; 87040; 87635; 87637; 93005; 96365; 96366; 96367; 96375; 96376; 97161; 97530; 99291; 70460; 71045; 72129; 72132; 72156; 72157; 76705; 81003; 83605; 83735; 84484; 85025; 85379; 85610; 85730; 86140; 87086; 93010; 99223; 99239; G0378; J1885; J2020; J2060; J2543; J3490

== ENCOUNTER 2023-11-06 19:30 | Emergency (ER) | payer MEDICAID, SELFPAY ==
[2023-11-06 19:23] VITALS: BP 120/66; PULSE 76; RESP 18; TEMP 36.7; O2SAT 100
[2023-11-06 19:26] VITALS: RESP 18
[2023-11-06 20:21] LABS: Lactate 0.9 mmol/L (0.6-1.4)
[2023-11-06 20:23] LABS: Abs Immature Grans 0.02 10^3/uL (0.0-0.06); Absolute Basophil Count 0.03 10^3/uL (0.0-0.2); Absolute Lymphocyte Count 1.75 10^3/uL (1.2-3.4); Absolute Monocyte Count 0.68 10^3/uL (0.1-0.8); Basophils % 0.3; Eosinophils % 1.1; HGB 13.5 g/dL (13.5-17.5); Immature Grans % 0.2; Lymphocytes % 18.7; MCH 28.9 pg (27.0-33.0); MCHC 33.8 % (32.0-36.0); MCV 86 fL (80-95); Monocytes % 7.2; Neutrophils % 72.5; Platelet Count 196 10^3/uL (130-400); RBC 4.67 10^6/uL (4.36-5.78); RDW 14.6 % (11.8-14.1); WBC 9.38 10^3/uL (4.4-10.8)
[2023-11-06 20:25] LABS: ESR 3 mm/hr (0-15)
[2023-11-06 20:43] LABS: Albumin 3.4 g/dL (3.4-5.0); Alkaline Phosphatase 120 U/L (46-116); Anion Gap 8.9 mmol/L (3-11); BUN 22 mg/dL (7-18); Bilirubin, Total 0.4 mg/dL (0.2-1.0); CO2 28.1 mmol/L (21.0-32.0); CREATININE 0.9 mg/dL (0.70-1.30); Calcium 9.2 mg/dL (8.5-10.1); Chloride 106 mmol/L (98-107); Estimated GFR 120.05 (mL/min/1.73m2); Glucose 95 mg/dL (74-106); Potassium 3.6 mmol/L (3.5-5.1); Sodium 143 mmol/L (136-145)
[2023-11-06 20:46] LABS: AST 931 U/L (15-37); C-Reactive Protein < 0.50 mg/dL (<or=0.5)
[2023-11-06 20:55] LABS: Procalcitonin 0.1 ng/mL
[2023-11-06 21:02] LABS: ALT 1226 U/L (16-63)
--- NOTE | 2023-11-06 21:29 | W.ED.GENAD ---
Discharge Plan Disposition Patient Disposition: Home Discharge Details Clinical Impression: Back pain, Hepatitis C Primary Care Provider: [facility] Ocampo ED Provider: Khadra Rosales Home Meds and New Rx's Prescriptions: Continued albuterol sulfate [Ventolin HFA] 90 mcg/actuation HFA aerosol inhaler 2 puff inhalation QID PRN (Reason: shortness of breath or wheezing) Qty: 6.7 3RF sumatriptan succinate 100 mg tablet See Rx Instructions PO .COMPLEX Qty: 14 3RF Rx Instructions: take 1 tab at onset of headache; if no relief, may repeat 1 tab after at least 2 hrs; max = 2 tabs/24 hrs PO topiramate [Topamax] 50 mg tablet 50 mg PO DAILY Qty: 30 2RF trazodone 100 mg tablet 100 mg PO QHS Qty: 30 2RF linezolid 600 mg tablet 600 mg PO Q12H Qty: 84 0RF Discharge Instructions Instructions: Viral Syndrome (ED), Back Pain (ED) Additional Instructions: You will need to have evaluation regarding your hepatitis C, you have an acute infection and you will need management in the outpatient setting Reviewed your MRIs and this emergency department did not show evidence of osteomyelitis or discitis per radiologist You are treated with 6 days of linezolid did not during your stay here, today your labs are reassuring, you have negative CRP, sed rate, and no elevated white blood cell count I recommend following up closely with your primary care physician for further management of your hepatitis C and refraining from any Tylenol use Referrals: West Ocampo MD [Primary Care Provider] - HPI General Date/Time Provider Initiated Documentation: 11/06/23 19:42. HPI Narrative: 28-year-old male with past medical history of hep C, back pain, IV drug abuse presents with report of back pain that started or reportedly worsened immediately after being arrested for drug trafficking. Patient reportedly was admitted to this facility and left AGAINST MEDICAL ADVICE approximately 6 weeks ago with reported diagnosis of discitis. He was prescribed linezolid in the outpatient setting which he states he did not take. Please officer states that patient was acting completely appropriately in no acute distress until after he was arrested when he demanded to be transported to the emergency department. Patient was asked regarding the sudden desire to be evaluated and he states I was going to come tomorrow . Continues to use IV opiates for patient. Related Data Home Medications Medication Instructions Recorded Confirmed linezolid 600 mg tablet 600 mg PO Q12H #84 tabs 09/25/23 09/27/23 albuterol sulfate 90 mcg/actuation 2 puff inhalation QID PRN 09/27/23 09/27/23 aerosol inhaler (Ventolin HFA) shortness of breath or wheezing #6.7 grams sumatriptan succinate 100 mg tablet See Rx Instructions PO .COMPLEX 09/27/23 09/27/23 #14 tabs topiramate 50 mg tablet (Topamax) 50 mg PO DAILY #30 tabs 09/27/23 09/27/23 trazodone 100 mg tablet 100 mg PO QHS #30 tabs 09/27/23 09/27/23 Previous Rx's Medication Instructions Recorded linezolid 600 mg tablet 600 mg PO Q12H #84 tabs 09/25/23 albuterol sulfate 90 mcg/actuation 2 puff inhalation QID PRN 09/27/23 aerosol inhaler (Ventolin HFA) shortness of breath or wheezing #6.7 grams sumatriptan succinate 100 mg tablet See Rx Instructions PO .COMPLEX 09/27/23 #14 tabs topiramate 50 mg tablet (Topamax) 50 mg PO DAILY #30 tabs 09/27/23 trazodone 100 mg tablet 100 mg PO QHS #30 tabs 09/27/23 Allergies Allergy/AdvReac Type Severity Reaction Status Date / Time cephalexin [Cephalexin] Allergy Intermediate RASH Unverified 09/27/23 10:49 honey Allergy Mild Hives Unverified 09/27/23 10:49 General Stated Complaint: GenMedical GABRIEL: 3 Course Vital Signs Vital signs: Vital Signs Temperature 36.7 C 11/06/23 19:23 Pulse 76 11/06/23 19:23 Respiratory Rate 18 11/06/23 19:23 Blood Pressure 120/66 11/06/23 19:23 Pulse Oximetry 100 11/06/23 19:23 Temperature 36.7 C 11/06/23 19:23 Temperature Source Oral 11/06/23 19:23 Pulse 76 11/06/23 19:23 Respiratory Rate 18 11/06/23 19:26 Respiratory Effort Normal, Non-Labored, Short of Breath 11/06/23 19:26 Respiratory Depth Normal 11/06/23 19:26 Respiratory Pattern Normal 11/06/23 19:26 Blood Pressure 120/66 11/06/23 19:23 Pulse Oximetry 100 11/06/23 19:23 Oxygen Delivery Method Room Air 11/06/23 19:23 Oxygen Flow Rate 0 11/06/23 19:23 Pain Level 8 11/06/23 19:23 Lab/Test Results Lab/Test Results: 11/06/23 20:27 Blood Blood Culture - Pending 11/06/23 20:14 Blood Blood Culture - Pending Laboratory Tests Range/Units 11/06/23 20:14 WBC (4.4-10.8) 10^3/uL 9.38 RBC (4.36-5.78) 10^6/uL 4.67 Hgb (13.5-17.5) g/dL 13.5 Hct (40.0-50.0) % 40.0 MCV (80-95) fL 86 MCH (27.0-33.0) pg 28.9 MCHC (32.0-36.0) % 33.8 RDW (11.8-14.1) % 14.6 H Plt Count (130-400) 10^3/uL 196 MPV (8.0-11.0) fL 9.0 Immature Gran % 0.2 Neutrophils % 72.5 Lymphocytes % 18.7 Monocytes % 7.2 Eosinophils % 1.1 Basophils % 0.3 Nucleated RBC % (0.0-0.3) % 0.0 Absolute Neutrophils (1.2-6.7) 10^3/uL 6.80 H Absolute Lymphocytes (1.2-3.4) 10^3/uL 1.75 Absolute Monocytes (0.1-0.8) 10^3/uL 0.68 Absolute Eosinophils (0.0-0.7) 10^3/uL 0.10 Absolute Basophils (0.0-0.2) 10^3/uL 0.03 ESR (0-15) mm/hr 3 VBG Lactate (0.6-1.4) mmol/L 0.9 Sodium (136-145) mmol/L 143 Potassium (3.5-5.1) mmol/L 3.6 Chloride (98-107) mmol/L 106 Carbon Dioxide (21.0-32.0) mmol/L 28.1 Anion Gap (3-11) mmol/L 8.9 BUN (7-18) mg/dL 22 H Creatinine (0.70-1.30) mg/dL 0.9 Est GFR (CKD-EPI 2020) (mL/min/1.73m2) 120.05 Glucose (74-106) mg/dL 95 Calcium (8.5-10.1) mg/dL 9.2 Total Bilirubin (0.2-1.0) mg/dL 0.4 AST (15-37) U/L 931 H ALT (16-63) U/L 1226 H Alkaline Phosphatase (46-116) U/L 120 H C-Reactive Protein (<or=0.5) mg/dL < 0.50 Total Protein (6.4-8.2) g/dL 7.0 Albumin (3.4-5.0) g/dL 3.4 Procalcitonin ng/mL 0.1 Medical Decision Making Is a complex patient, 28 years old presenting with report of back pain which started immediately after being arrested Leaving AGAINST MEDICAL ADVICE from this facility 6 weeks ago On exam patient is alert and oriented, he is in no acute distress, he has tenderness to his lumbar and thoracic spine, he is afebrile and nontoxic with stable vitals and all diagnostic labs aside from LFTs within normal limits including a normal CRP, sed rate, lactate, procalcitonin, and no leukocytosis Patient is neurologically intact without any evidence of cauda equina syndrome, strength and sensation intact distally, no abdominal tenderness appreciated, no jaundice or icterus, alert and oriented x 4 negative Babinski, DTRs intact bilateral lower extremities AST 931, ALT 1226, increased from 605 100 Reviewed patient's prior MRIs, of note patient had MRIs on 219 of his thoracic, lumbar, and cervical spine that do not show evidence of obvious discitis or abscess Apparently the hospitalist had a conversation with [facility] neurosurgery and there was a concern for possible discitis on MRI although radiologist did read our MRIs is negative Patient received 6 days of treatment and was discharged home on linezolid which he reports he did not take Given his exam and labs today I see no indication to admit this patient for IV antibiotics His LFTs are elevated, and he was diagnosed with hepatitis C and these labs were reviewed from his prior encounter I spent approximately 15 minutes reviewing patient's outpatient MRIs and diagnostic labs from his prior assessment I think patient is stable for discharge to incarceration, I think he will need close outpatient assessment by his primary care physician and will likely need treatment for hep C He will need referral to neurosurgery for evaluation regarding his lumbar spine but at this time we do not feel the patient needs IV antibiotics or admission to this facility Discharged in the care of police in stable condition Quality:SDOH Health Related Social Needs: No Data to Display PFSH All Active Problems (Updated 11/06/23 @ 21:38 by HOMAR Castle) Hepatitis C (Chronic) Back pain (Acute) Gallbladder polyp (Acute) Osteomyelitis of lumbar vertebra (Acute) Thoracic disc herniation (Acute) Hepatitis C (Acute) Sepsis (Acute) Back pain (Acute) Thrombocytopenia (Chronic) Hypernatremia (Acute) Anemia (Chronic) Transaminitis (Acute) CRP elevated (Acute) Acute low back pain (Acute) History of intravenous drug abuse (Acute) 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 Anxiety disorder (Acute) Knee pain, right anterior (Acute ~10/05/22) Migraine headache (Chronic) Opioid abuse (Acute) Pleuritic chest pain (Acute) Shortness of breath (Acute) Pneumonitis (Acute) Hypoxia (Acute) Alcohol abuse (Chronic) E-cigarette or vaping product use associated lung injury (EVALI) (Acute) Smoker (Acute) Restless leg syndrome (Acute) COVID (Acute) Neck pain, chronic (Acute) Medical History Attention deficit hyperactivity disorder, 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) Surgical History History of arthroscopy of knee History of surgical removal of ganglion cyst (05/10/16) Excision of dorsal wrist ganglion cyst, right (05/10/16) Arthroplasty of knee (04/16/12) RIGHT Social History Smoking/Tobacco Use Status: Current every day Tobacco Type: cigarettes Smoking risk assessment performed?: Yes Alcohol Intake: current Alcohol Intake frequency: 3 or more drinks per day Alcohol type: beer Drug use: Daily Substance use type: marijuana and heroin Details: 12 pack/day Housing: house Current gender identity: male Do you feel safe at home: Yes Do you feel safe in your relationship?: Yes Additional Social history: Pt reports recovering substance use, no longer using heroin, cocaine. Pt reports no therapy, participated at residential rehab 6 months ag0.
[2023-11-06 21:51] VITALS: PULSE 95; RESP 18; O2SAT 96
== END 2023-11-06 21:52 | disposition home or self-care (01) ==
PROVIDERS: Emergency Provider Physician Assistant; PCP Family Medicine
DX: M54.50 Low back pain, unspecified (principal); B18.2 Chronic viral hepatitis C; F17.210 Nicotine dependence, cigarettes, uncomplicated
CPT/HCPCS: 80053; 84145; 85652; 87040; 87077; 99283; 83605; 85025; 86140; 87186

== ENCOUNTER 2023-11-09 08:52 | Emergency (ER) | payer MEDICAID, SELFPAY ==
[2023-11-09 09:07] VITALS: BP 112/79; PULSE 96; RESP 18; TEMP 37.5; O2SAT 98
--- NOTE | 2023-11-09 10:00 | DI.MRI_ITS ---
Exam(s) MR LUMBAR SPINE WO EXAM: MR LUMBAR SPINE WO CLINICAL HISTORY: back pain, hx infection, +Blood culture TECHNIQUE: Multiplanar multisequence MRI of the Lumbar Spine was performed. CONTRAST MATERIAL: The patient could not tolerate the duration of the examination and the T2 axial s equences and post gadolinium sequences could not be performed. COMPARISON: MR MR LUMBAR SPINE WO/W from 09/24/2023 FINDINGS: Exam is limited by motion. Bones: The last intervertebral disc space is designated the L5/S1 level for the numbering purpose of this examination. The vertebral body heights are well maintained. Alignment is satisfactory. The sig nal characteristics are unremarkable. Cord: The conus tip ends at the T12 level. It is of normal size and signal intensity. T12-L1: No disc herniations or bulges are present. L1-2: No disc herniations or bulges are present. L2-3: No disc herniations or bulges are present. L3-4: Mild disc bulging. L4-5: Mild disc bulging. L5-S1: [id number] loss of disc height and disc desiccation. Concentric disc bulging. Chronic appearing deformity of the anterior aspect of the a vertebral body and degenerative signal changes i n the inferior endplate of L5. This appears stable from prior. Soft tissues: The visualized SI joints and sacrum are well maintained. The paraspinal soft tissues ar e unremarkable. IMPRESSION: No evidence of osteomyelitis or discitis. No visible epidural abscess. Stable appearance of the spi ne compared to prior exam. DATA REPOSITORY:
--- NOTE | 2023-11-09 10:00 | DI.MRI_ITS ---
Exam(s) MR THORACIC SPINE WO EXAM: MR THORACIC SPINE WO CLINICAL HISTORY: lower thoracic pain, +MRSA blood culture. TECHNIQUE: Multiplanar multisequence MRI of the Thoracic spine was performed. COMPARISON: MR MR THORACIC SPINE WO/W from 09/24/2023 MR MR LUMBAR SPINE WO from 11/09/2023 FINDINGS: The lower axial images are limited by motion. The patient could not tolerate further imaging and no IV gadolinium could be administered. Bones: The vertebral body heights are well maintained. Alignment is satisfactory. The marrow signal characteristics are unremarkable. Cord: The thoracic cord is normal size and signal intensity. No intrinsic cord lesion is present. No evidence of a epidural abscess. Soft tissues: Normal. Discs: Small disc protrusions again noted at T9-10 and T11-12. . IMPRESSION: No evidence of epidural abscess, discitis or osteomyelitis. Stable small disc protrusions. DATA REPOSITORY:
--- NOTE | 2023-11-09 10:08 | W.ED.GENAD ---
Discharge Plan Disposition Patient Disposition: Home Condition: Stable Discharge Details Chief Complaint: DrugWithdr/MAT Clinical Impression: Chronic back pain Primary Care Provider: [facility] Provider: Ludmila Dickson Home Meds and New Rx's Prescriptions: No Action albuterol sulfate [Ventolin HFA] 90 mcg/actuation HFA aerosol inhaler 2 puff inhalation QID PRN (Reason: shortness of breath or wheezing) Qty: 6.7 3RF sumatriptan succinate 100 mg tablet See Rx Instructions PO .COMPLEX Qty: 14 3RF Rx Instructions: take 1 tab at onset of headache; if no relief, may repeat 1 tab after at least 2 hrs; max = 2 tabs/24 hrs PO topiramate [Topamax] 50 mg tablet 50 mg PO DAILY Qty: 30 2RF trazodone 100 mg tablet 100 mg PO QHS Qty: 30 2RF hydroxyzine HCl 50 mg tablet 50 mg PO BID clonidine HCl 0.1 mg tablet 0.1 mg PO BID Discharge Instructions Instructions: Abel geller?marla norwood (ED) Additional Instructions: Medically cleared for incarceration. Discharge Data Discharge Physician: Ludmila Dickson [facility] General Date/Time Provider Initiated Documentation: 11/09/23 09:18. HPI Narrative: 28-year-old male with history of IV drug abuse presents for evaluation after being called with positive blood culture. Patient was seen here on November 05. At that time blood cultures were drawn. He was medically cleared for incarceration. Yesterday one of the blood cultures came back as positive for gram-positive cocci. The second blood culture has had no growth for 48 hours. Patient has chronic lower back pain. He states that the pain is not any different than usual. He has been withdrawing from fentanyl. Last use was 4 days ago. He has been on methadone in the past. He states he did have several episodes of vomiting yesterday however he has not had any vomiting today and is feeling slightly better. He denies any loss of bowel or bladder function. No saddle anesthesia. No numbness or tingling to his extremities. No weakness in extremities. Related Data Home Medications Medication Instructions Recorded Confirmed albuterol sulfate 90 mcg/actuation 2 puff inhalation QID PRN 09/27/23 11/09/23 aerosol inhaler (Ventolin HFA) shortness of breath or wheezing #6.7 grams sumatriptan succinate 100 mg tablet See Rx Instructions PO .COMPLEX 09/27/23 11/09/23 #14 tabs topiramate 50 mg tablet (Topamax) 50 mg PO DAILY #30 tabs 09/27/23 11/09/23 trazodone 100 mg tablet 100 mg PO QHS #30 tabs 09/27/23 11/09/23 clonidine HCl 0.1 mg tablet 0.1 mg PO BID 11/09/23 11/09/23 hydroxyzine HCl 50 mg tablet 50 mg PO BID 11/09/23 11/09/23 Previous Rx's Medication Instructions Recorded albuterol sulfate 90 mcg/actuation 2 puff inhalation QID PRN 09/27/23 aerosol inhaler (Ventolin HFA) shortness of breath or wheezing #6.7 grams sumatriptan succinate 100 mg tablet See Rx Instructions PO .COMPLEX 09/27/23 #14 tabs topiramate 50 mg tablet (Topamax) 50 mg PO DAILY #30 tabs 09/27/23 trazodone 100 mg tablet 100 mg PO QHS #30 tabs 09/27/23 Allergies Allergy/AdvReac Type Severity Reaction Status Date / Time cephalexin [Cephalexin] Allergy Intermediate RASH Unverified 11/09/23 10:08 honey Allergy Mild Hives Unverified 11/09/23 10:08 General Stated Complaint: DrugWithdr/MAT GABRIEL: 3 Review of Systems Narrative: Remainder of review of systems otherwise negative except for as noted in the HPI x 10. Exam Narrative Exam Narrative: General: non-toxic, no respiratory distress, comfortable HEENT: normocephalic, atraumatic, lids and lashes normal, PERRL, EOMI, anicteric sclera, no conjunctival injection, moist oral mucosa Card: regular rate and rhythm, S1S2, no murmurs, rubs, or gallops Lungs: good air entry, clear to auscultation bilaterally. no wheezes, rales, rhonchi, or retractions Abd: soft, non-tender, non-distended, normal bowel sounds, no rebound or guarding, no peritoneal signs Musculoskeletal: full range of motion of arms and legs, no tenderness to palpation. no clubbing, cyanosis, or edema Back exam:no paraspinal tenderness, + diffuse lumbosacral mid-line tenderness, without erythema or warmth, normal strength & sensation, negative SLR's, DTR's 2+ bilaterally Neurologic: appropriate for age, strength normal Psych: alert and oriented Skin: no petechiae, no lesions, warm and dry Course Vital Signs Vital signs: Vital Signs Temperature 37.5 C 11/09/23 09:07 Pulse 96 H 11/09/23 09:07 Respiratory Rate 18 11/09/23 09:07 Blood Pressure 112/79 11/09/23 09:07 Pulse Oximetry 98 11/09/23 09:07 Temperature 37.5 C 11/09/23 09:07 Temperature Source Temporal Artery Scan 11/09/23 09:07 Pulse 96 H 11/09/23 09:07 Respiratory Rate 18 11/09/23 09:07 Respiratory Effort Normal, Non-Labored 11/09/23 09:15 Blood Pressure 112/79 11/09/23 09:07 Blood Pressure Position Sitting 11/09/23 09:07 Pulse Oximetry 98 11/09/23 09:07 Oxygen Delivery Method Room Air 11/09/23 09:07 Oxygen Flow Rate 0 11/09/23 09:07 Lab/Test Results Lab/Test Results: 11/09/23 09:18 Blood Blood Culture - Pending 11/09/23 09:18 Blood Blood Culture - Pending Medical Decision Making 28-year-old male presents for reevaluation after positive blood culture. Blood culture initially showed gram-positive cocci. I did talk to the lab at patient's presentation and he does have MRSA growing out in the blood culture. It is difficult to ascertain if patient is having any current infectious symptoms due to his withdrawal symptoms. He has had prior back infection and will check laboratory studies, repeat blood cultures, and MRI of back. Initial lactic acid was elevated however repeat was normal. Given concern for possible infection empiric antibiotics were given. Laboratory studies returned showing normal white count, normal ESR, normal CRP. Patient with normal back exam. MRI was ordered. Unfortunately patient was unable to tolerate full images however the MRI of thoracic and lumbar spine were unremarkable. I do feel it is safe for at this time. Repeat blood cultures are pending. Patient understands indications to return. 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 Anxiety disorder (Acute) Knee pain, right anterior (Acute ~10/05/22) Migraine headache (Chronic) Opioid abuse (Acute) Pleuritic chest pain (Acute) Shortness of breath (Acute) Pneumonitis (Acute) Hypoxia (Acute) Alcohol abuse (Chronic) E-cigarette or vaping product use associated lung injury (EVALI) (Acute) Smoker (Acute) Restless leg syndrome (Acute) COVID (Acute) Neck pain, chronic (Acute) Medical History Attention deficit hyperactivity disorder, 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) Surgical History History of arthroscopy of knee History of surgical removal of ganglion cyst (05/10/16) Excision of dorsal wrist ganglion cyst, right (05/10/16) Arthroplasty of knee (04/16/12) RIGHT Social History Smoking/Tobacco Use Status: Current every day Tobacco Type: cigarettes Smoking risk assessment performed?: Yes Alcohol Intake: current Alcohol Intake frequency: 3 or more drinks per day Alcohol type: beer Drug use: Daily Substance use type: marijuana and heroin Details: 12 pack/day Housing: house Current gender identity: male Do you feel safe at home: Yes Do you feel safe in your relationship?: Yes Additional Social history: Pt reports recovering substance use, no longer using heroin, cocaine. Pt reports no therapy, participated at residential rehab 6 months ag0.
[2023-11-09 10:12] LABS: Lactate 1.6 mmol/L (0.6-1.4)
[2023-11-09 10:14] LABS: Abs Immature Grans 0.02 10^3/uL (0.0-0.06); Absolute Basophil Count 0.04 10^3/uL (0.0-0.2); Absolute Eosinophil Count 0.13 10^3/uL (0.0-0.7); Absolute Lymphocyte Count 2.51 10^3/uL (1.2-3.4); Absolute Monocyte Count 0.64 10^3/uL (0.1-0.8); Absolute Neutrophil Count 4.22 10^3/uL (1.2-6.7); Basophils % 0.5; Eosinophils % 1.7; HCT 39.5 % (40.0-50.0); HGB 13.4 g/dL (13.5-17.5); Immature Grans % 0.3; Lymphocytes % 33.2; MCH 29.4 pg (27.0-33.0); MCHC 33.9 % (32.0-36.0); MCV 87 fL (80-95); MPV 9.4 fL (8.0-11.0); Monocytes % 8.5; Neutrophils % 55.8; Platelet Count 194 10^3/uL (130-400); RBC 4.56 10^6/uL (4.36-5.78); RDW 15.5 % (11.8-14.1); RDW-SD 49.3 fL; WBC 7.56 10^3/uL (4.4-10.8)
[2023-11-09 10:25] LABS: ESR < 1 mm/hr (0-15)
[2023-11-09 10:36] LABS: AST 630 U/L (15-37); Albumin 3.2 g/dL (3.4-5.0); Alkaline Phosphatase 118 U/L (46-116); Anion Gap 8.2 mmol/L (3-11); BUN 21 mg/dL (7-18); Bilirubin, Total 0.4 mg/dL (0.2-1.0); CO2 28.8 mmol/L (21.0-32.0); CREATININE 0.8 mg/dL (0.70-1.30); Calcium 9.1 mg/dL (8.5-10.1); Chloride 107 mmol/L (98-107); Glucose 75 mg/dL (74-106); Potassium 4.2 mmol/L (3.5-5.1); Sodium 144 mmol/L (136-145); Total Protein 6.6 g/dL (6.4-8.2)
[2023-11-09] MEDS: LORazepam 2 MG/ML VIAL IVP ×3 (10:40→15:41)
[2023-11-09 10:42] LABS: C-Reactive Protein < 0.50 mg/dL (<or=0.5)
[2023-11-09 11:42] LABS: ALT 1487 U/L (16-63)
[2023-11-09] MEDS: CIPROFLOXACIN 400 MG/200 ML BAG 200 MG IVPB (11:45)
[2023-11-09] MEDS: VANCOMYCIN/WATER (PEG) 2 GM/400 ML BAG IVPB (12:49)
--- NOTE | 2023-11-09 15:43 | NUR.NOTE ---
Nursing Note: MRI called and stated odalys the patint was not tolerating the MRI and that he needed more medication to help him calm down. Patient has been calm for the duration of his visit.
[2023-11-09 16:12] LABS: Lactate 0.7 mmol/L (0.6-1.4)
--- NOTE | 2023-11-09 16:26 | DI.VRAD_ITS ---
PROCEDURE INFORMATION: Exam: MR Lumbar Spine Without and With Contrast Exam date and time: 11/09/2023 3:07 PM Age: 28 years old Clinical indication: Low back pain; Additional info: Limited study-pt could not tolerate any additional imaging TECHNIQUE: Imaging protocol: Magnetic resonance imaging of the lumbar spine without and with contrast. COMPARISON: MR LUMBAR SPINE WO/W 09/24/2023 11:25 AM FINDINGS: Bones/joints: See L5-S1 finding. Spinal cord: Conus terminates normally at L1. L1-L2: No disc herniation. No spinal stenosis. No neural foraminal narrowing. L2-L3: No disc herniation. No spinal stenosis. No neural foraminal narrowing. L3-L4: Mild bulge. Mild facet hypertrophy. Mild bilateral neural foraminal narrowing. L4-L5: Mild bulge. Mild facet hypertrophy. Mild bilateral neural foraminal narrowing. L5-S1: Mild retrolisthesis L5-S1. Bulging disc. Underlying osteophyte. Bilateral facet hypertrophy. Moderate right and mild left-sided neural foraminal narrowing, similar to the prior study. Soft tissues: Unremarkable. IMPRESSION: 1. Mild lower lumbar degenerative changes. 2. No abnormal enhancement. 3. Patient unable to complete examination due to pain. Dictated and Authenticated by: Hi Zayas MD. Ordering:CARLOS Keys MD
--- NOTE | 2023-11-09 16:29 | DI.VRAD_ITS ---
PROCEDURE INFORMATION: Exam: MR Thoracic Spine Without Contrast Exam date and time: 11/09/2023 11:10 AM Age: 28 years old Clinical indication: Pain in thoracic spine; Without myelpathy or radiculopathy; Additional info: Limited study-pt could not tolerate any additional imaging TECHNIQUE: Imaging protocol: Magnetic resonance imaging of the thoracic spine without contrast. COMPARISON: MR THORACIC SPINE WO/W 09/24/2023 3:24 PM FINDINGS: Bones/joints: There are mild disc osteophyte complexes and mild facet arthropathy seen at the left C6-C7, left T7-T8, left T8-T9 and right T10-T11 levels causing mild neural foraminal narrowing. No severe spinal canal stenosis. Spinal cord: Normal signal. No cord compression. Soft tissues: Unremarkable. IMPRESSION: Degenerative changes as on the prior study. Otherwise unremarkable. Dictated and Authenticated by: Hi Zayas MD. Ordering:CARLOS Keys MD
== END 2023-11-09 16:45 | disposition home or self-care (01) ==
PROVIDERS: Emergency Provider Emergency Medicine Emergency Medical Services; PCP Family Medicine
DX: M54.50 Low back pain, unspecified (principal); F11.13 Opioid abuse with withdrawal; F17.210 Nicotine dependence, cigarettes, uncomplicated
CPT/HCPCS: 36415; 80053; 85652; 87040; 96365; 96366; 96368; 96375; 96376; 99284; 72146; 72148; 83605; 85025; 86140; J0744; J2060; J3372

== ENCOUNTER 2025-04-26 10:43 | Emergency (ER) | payer MEDICAID, SELFPAY ==
[2025-04-26 11:06] VITALS: BP 113/76; PULSE 63; RESP 16; TEMP 36.6; O2SAT 94
--- NOTE | 2025-04-26 11:14 | W.ED.GENAD ---
Discharge Plan Disposition Patient Disposition: Home Condition: Good Discharge Details Clinical Impression: Discharge from penis, Chronic knee pain Primary Care Provider: [facility] ED Provider: Davis Leal Home Meds and New Rx's Prescriptions: New doxycycline hyclate 100 mg capsule 100 mg PO BID Qty: 13 0RF Continued albuterol sulfate [Ventolin HFA] 90 mcg/actuation HFA aerosol inhaler 2 puff inhalation QID PRN (Reason: shortness of breath or wheezing) Qty: 6.7 3RF sumatriptan succinate 100 mg tablet See Rx Instructions PO .COMPLEX Qty: 14 3RF Rx Instructions: take 1 tab at onset of headache; if no relief, may repeat 1 tab after at least 2 hrs; max = 2 tabs/24 hrs PO topiramate [Topamax] 50 mg tablet 50 mg PO DAILY Qty: 30 2RF trazodone 100 mg tablet 100 mg PO QHS Qty: 30 2RF hydroxyzine HCl 50 mg tablet 50 mg PO BID clonidine HCl 0.1 mg tablet 0.1 mg PO BID Discharge Instructions Instructions: Trichomoniasis, Knee pain Referrals: Roberto Fairchild MD [ [facility] STAFF PHYSICIAN, Orthopaedic Surgical] Referral Note: Previously undergoing evaluation for chronic right knee pain. Clinical Impression: Chronic knee pain HPI General Date/Time Provider Initiated Documentation: 04/26/25 10:45. HPI Narrative: MDM/Narrative: Initial Assessment: Discharge without pain or itching, started a week ago. History of right knee pain and surgery at age 17. Differential Diagnosis: - Trichomoniasis: Discharge without pain or itching, started a week ago. Will empirically treat for trichomoniasis as well as gonorrhea and chlamydia - Right knee pain: History of surgery at age 17. X-ray from 2022 available, will refer to orthopedics ED Course: - Prescribed medication sent to pharmacy. Final Assessment: Medication prescribed. Referral to orthopedics for right knee pain. New x-ray if previous imaging unavailable. Clinical Impression: - Penile discharge - Right knee pain Follow-Up: Referral to orthopedics. Disposition: Discharge Patient Education: Abstinence from sexual activity until completion of treatment to prevent reinfection. This document was created with assistance from [employer] Review[employer]. The patient consented to its use. HPI: 29-year-old male presents for evaluation of penile discharge. The patient's partner was recently diagnosed with trichomoniasis, He reports discharge without associated pain or pruritus, which commenced approximately one week ago. He denies experiencing pyrexia or chills. The patient's partner initiated antibiotic therapy three days prior. The patient is seeking a referral to orthopedics for evaluation of right knee pain. He was previously referred for knee arthroplasty, which was postponed due to incarceration. The patient underwent knee surgery at the age of 17, which was not performed correctly. He has managed the condition without further intervention for the past decade. Pre-incarceration radiographs indicated the need for knee replacement, as recommended by a specialist at [facility], but follow-up was interrupted by legal issues. PAST SURGICAL HISTORY: Knee surgery at age 17. ROS: Negative besides as mentioned above Exam: Vital signs: Reviewed. General Appearance: Alert and oriented. No acute distress. HEENT: NCAT, EOMI, not icteric. External ears normal. No rhinorrhea. Moist mucous membranes. Neck: Supple, full range of motion, no observable masses, No meningeal sign. Respiratory: No Respiratory distress. No tachypnea. Cardiovascular: RRR, no edema. Gastrointestinal: Soft, nondistended, No rebound tenderness. Back: No midline tenderness to palpation or palpable step-offs of the C/T/L spine. Musculoskeletal: Right knee with history of prior surgery and ongoing issues. Skin: Warm and dry, no rash. Neurological: Normal Gait, Grossly intact. Psychiatric: Appropriate for situation. Related Data Home Medications ?Medication ?Instructions ?Recorded ?Confirmed albuterol sulfate 90 mcg/actuation 2 puff inhalation QID PRN 09/27/23 04/26/25 aerosol inhaler (Ventolin HFA) shortness of breath or wheezing #6.7 grams sumatriptan succinate 100 mg tablet See Rx Instructions PO .COMPLEX 09/27/23 04/26/25 #14 tabs topiramate 50 mg tablet (Topamax) 50 mg PO DAILY #30 tabs 09/27/23 04/26/25 trazodone 100 mg tablet 100 mg PO QHS #30 tabs 09/27/23 04/26/25 clonidine HCl 0.1 mg tablet 0.1 mg PO BID 11/09/23 04/26/25 hydroxyzine HCl 50 mg tablet 50 mg PO BID 11/09/23 04/26/25 doxycycline hyclate 100 mg capsule 100 mg PO BID #13 caps 04/26/25 Previous Rx's ?Medication ?Instructions ?Recorded albuterol sulfate 90 mcg/actuation 2 puff inhalation QID PRN 09/27/23 aerosol inhaler (Ventolin HFA) shortness of breath or wheezing #6.7 grams sumatriptan succinate 100 mg tablet See Rx Instructions PO .COMPLEX 09/27/23 #14 tabs topiramate 50 mg tablet (Topamax) 50 mg PO DAILY #30 tabs 09/27/23 trazodone 100 mg tablet 100 mg PO QHS #30 tabs 09/27/23 doxycycline hyclate 100 mg capsule 100 mg PO BID #13 caps 04/26/25 Allergies Allergy/AdvReac Type Severity Reaction Status Date / Time cephalexin (Cephalexin) Allergy Intermediate RASH Unverified 04/26/25 11:12 honey Allergy Mild Hives Unverified 04/26/25 11:12 General Stated Complaint: Male Reproductive Problem GABRIEL: 4 Course Vital Signs Vital signs: Vital Signs Temperature 36.6 C 04/26/25 11:06 Pulse 63 04/26/25 11:06 Respiratory Rate 16 04/26/25 11:06 Blood Pressure 113/76 04/26/25 11:06 Pulse Oximetry 94 04/26/25 11:06 Temperature 36.6 C 04/26/25 11:06 Temperature Source Oral 04/26/25 11:06 Pulse 63 04/26/25 11:06 Respiratory Rate 16 04/26/25 11:06 Blood Pressure 113/76 04/26/25 11:06 Blood Pressure Position Sitting 04/26/25 11:06 Pulse Oximetry 94 04/26/25 11:06 Oxygen Delivery Method Room Air 04/26/25 11:06 Oxygen Flow Rate 0 04/26/25 11:06 Pain Level 0 04/26/25 11:06 PFSH All Active Problems (Updated 04/26/25 @ 11:26 by Davis Leal MD) Chronic knee pain (Acute) Discharge from penis (Acute) Abnormal brain MRI (Acute) Gallbladder polyp (Acute) Osteomyelitis of lumbar vertebra (Acute) Thoracic disc herniation (Acute) Hepatitis C (Acute) Sepsis (Acute) Back pain (Acute) Thrombocytopenia (Chronic) Hypernatremia (Acute) Anemia (Chronic) Transaminitis (Acute) CRP elevated (Acute) Acute low back pain (Acute) History of intravenous drug abuse (Acute) 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 Anxiety disorder (Acute) Knee pain, right anterior (Acute ~10/05/22) Migraine headache (Chronic) Opioid abuse (Acute) Pleuritic chest pain (Acute) Shortness of breath (Acute) Pneumonitis (Acute) Hypoxia (Acute) Alcohol abuse (Chronic) E-cigarette or vaping product use associated lung injury (EVALI) (Acute) Smoker (Acute) Restless leg syndrome (Acute) COVID (Acute) Neck pain, chronic (Acute) Medical History Attention deficit hyperactivity disorder, 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 Patient is now 2 years with drugs Housing: house Current gender identity: male Do you feel safe at home: Yes Do you feel safe in your relationship?: Yes Additional Social history: Pt reports recovering substance use, no longer using heroin, cocaine. Pt reports no therapy, participated at residential rehab 6 months ag0.
[2025-04-26] MEDS: Doxycycline Hyclate 100 MG CAP PO (11:33)
[2025-04-26] MEDS: metroNIDAZOLE 500 MG TAB 2000 MG PO (11:34)
[2025-04-26] MEDS: cefTRIAXone 1 GM VIAL IM (11:36)
== END 2025-04-26 11:40 | disposition home or self-care (01) ==
LOC: ER 12:04
PROVIDERS: Emergency Provider General Practice; PCP Family Medicine
DX: R36.9 Urethral discharge, unspecified (principal); M25.561 Pain in right knee; A59.8 Trichomoniasis of other sites
CPT/HCPCS: 99284 ×2; 96372; J0696